=== PATIENT | male | born 1955 | race Caucasian/White ===

== ENCOUNTER 2020-03-12 11:56 | Inpatient (IN) | payer MEDICARE, OTHER ==
[~2020-03-12] VITALS: Ht 177.8 cm; Wt 90.7 kg
[2020-03-12] VITALS (25 sets, daily range): BP systolic 126–215; BP diastolic 26–115
--- NOTE | 2020-03-12 12:00 | NUR ---
[id number] from [facility] c/o "not feeling well" noted afib correctional captain. bg 174 pt admits to drinking vodka. to ER bed 9, hooked to road packer operator, bp cuff and pox, patient noted on a-fib, o2 sat noted at 90%, placed on 2LPM of oxygen. o2 sat went up to 96%. changed to hosp gown, warm blanket provided, patient aao X 2,NAD noted, awaiting MD girard
--- NOTE | 2020-03-12 12:06 | NUR ---
Dr Haq at bedside
[2020-03-12] MEDS ORDERED: LORAZEPAM INJ 2 MG/ML VIAL ONE (12:20)
[2020-03-12] MEDS ORDERED: ASPI-1420 PO (12:24)
--- NOTE | 2020-03-12 12:27 | NUR ---
WHEELED OUT VIA GURVINH BY [employer] FOR CT SCAN
[2020-03-12] MEDS ORDERED: LORAZEPAM INJ 2 MG/ML VIAL IV ONE (12:30)
[2020-03-12 13:02] LABS: BASOPHILS # (AUTO) 0.1 /CMM (0.0-0.2); BASOPHILS % (AUTO) 0.8 % (0.0-2.0); EOSINOPHILS % (AUTO) 0.1 % (0.0-6.0); HEMATOCRIT 43 % (39-51); HEMOGLOBIN 14.5 g/dL (13.5-17.5); LYMPHOCYTES # (AUTO) 2.1 /CMM (0.8-4.8); LYMPHOCYTES % (AUTO) 21.9 % (20.0-44.0); MEAN CORPUSCULAR HGB CONC 34 g/dl (31.0-36.0); MEAN CORPUSCULAR VOLUME 99 fL (80-96); MONOCYTES # (AUTO) 0.5 /CMM (0.1-1.30); NEUTROPHILS # (AUTO) 6.8 /CMM (1.8-8.9); NEUTROPHILS % (AUTO) 72.2 % (43.0-81.0); PLATELET COUNT (AUTO) 142 /CMM (150-450); RED BLOOD CELL COUNT(AUTO) 4.36 MIL/uL (4.5-6.0); WHITE BLOOD COUNT (AUTO) 9.4 K/uL (4.3-11.0)
[2020-03-12 13:08] LABS: ALBUMIN 3.1 g/dL (3.4-5.0); BILIRUBIN,DIRECT 0.2 mg/dL (0.0-0.2); BILIRUBIN,TOTAL 0.6 mg/dL (0.2-1.0); CALCIUM, SERUM 8.7 mg/dL (8.5-10.1); CREATININE 0.8 mg/dL (0.6-1.3); POTASSIUM 2.9 mmol/L (3.5-5.1); TOTAL PROTEIN, SERUM 6.7 g/dL (6.4-8.2)
[2020-03-12 13:13] LABS: THYROID STIMULATING HORMONE 1.063 uIU/mL (0.358-3.74)
[2020-03-12] MEDS ORDERED: IV PREMIX D5 1/2NS + KCL 1,000 ML IV ONE (13:30)
--- NOTE | 2020-03-12 13:40 | NUR ---
PANEL RESIDENTIAL SUPPORT SPECIALIST PAGED
[2020-03-12] MEDS ORDERED: DAPA5TAB PO (15:30)
[2020-03-12] MEDS ORDERED: TAMS-12 PO (15:30)
[2020-03-12] MEDS ORDERED: PANT40TA49 PO (15:30)
[2020-03-12] MEDS ORDERED: RISP1TAB97 PO (15:30)
[2020-03-12] MEDS ORDERED: ESCI20TA PO (15:30)
[2020-03-12] MEDS ORDERED: DONE5TAB34 PO (15:30)
[2020-03-12] MEDS ORDERED: CARV12.52 PO (15:30)
[2020-03-12] MEDS ORDERED: METF-440 PO (15:30)
[2020-03-12] MEDS ORDERED: AMLO-213 PO (15:30)
[2020-03-12] MEDS ORDERED: FLUT1BLS INH (15:30)
[2020-03-12] MEDS ORDERED: FINA5TAB11 PO (15:30)
[2020-03-12] MEDS ORDERED: MEMA28CA5 PO (15:30)
[2020-03-12] MEDS ORDERED: DULA0.75 SQ (15:30)
--- NOTE | 2020-03-12 15:39 | NUR ---
RAPID COVID SWAB DONE AND SENT TO LAB
--- NOTE | 2020-03-12 15:51 | NUR ---
DR JORGENSEN AT BEDSIDE
[2020-03-12] MEDS ORDERED: ACETAMINOPHEN 325 MG TABLET PO PRN (16:30)
[2020-03-12] MEDS ORDERED: ONDANSETRON HCL/PF 4 MG/2 ML VIAL IVP PRN (16:30)
[2020-03-12] MEDS ORDERED: Z GUARD REMEDY 2 OZ OINT TP PRN (16:30)
[2020-03-12] MEDS ORDERED: MAGNESIUM HYDROXIDE 30 ML UDC PO PRN (16:30)
[2020-03-12] MEDS ORDERED: MAG HYDROX/AL HYDROX/SIMETH 30 ML UDC PO PRN (16:30)
[2020-03-12] MEDS: DILTIAZEM HCL IV 125 MG in IV NS 0.9% 100 ML IV PRN ×3 (16:46→23:14)
--- NOTE | 2020-03-12 16:56 | NUR ---
increased cardizem drip to 10mg/hr.
--- NOTE | 2020-03-12 17:08 | NUR ---
CARDIZEM DRIP CHANGED TO 15MG/HR
--- NOTE | 2020-03-12 17:10 | NUR ---
DR VERAS AT BEDSIDE, LITTLE TO MINIMAL CHANGE DURING CARDIZEM DRIP. RECEIVED VERBAL ORDER OF 10MG CARDIZEM IVP. CARRIED OUT.
[2020-03-12] MEDS ORDERED: DILTIAZEM HCL 50 MG IV ONE (17:12)
--- NOTE | 2020-03-12 17:16 | NUR ---
ICU 257
--- NOTE | 2020-03-12 17:20 | NUR ---
REPORT GIVEN TO MICHAEL CRUZ OF ICU
[2020-03-12] MEDS ORDERED: DILTIAZEM HCL 25 MG IV IV ONE (17:30)
--- NOTE | 2020-03-12 17:45 | NUR ---
RN NOTES RECEIVED PT FROM ER VIA OSBALDO. PT A/OX2-3, ITALIAN SPEAKING. PLACED COMFORTABLY IN BED. CONNECTED TO MONITOR. IV LINES IN PLACE. CARDIZEM AT 15MG/HR AND D5 1/2 NS + KCL 20MEQ AR 200ML/HR INFUSING FROM ER. SKIN INTACT. WILL CLOSELY MONITOR
--- NOTE | 2020-03-12 17:52 | NUR ---
LAB CALLED PT COVID-19 RESULT NEGATIVE (-)
[2020-03-12] MEDS ORDERED: LORAZEPAM INJ 2 MG/ML VIAL IV PRN (18:00)
--- NOTE | 2020-03-12 19:30 | NUR ---
RN NOTE RECEIVED PATIENT IN BED, AO X 2-3, MONTSERRATIAN SPEAKING, BUT UNDERSTANDS SOME MACEDONIAN. PATIENT'S BREATHING IS EVEN AND UNLABORED. PATIENT IS ON 3 L OF OXYGEN VIA NC, TOLERATING WELL, SATURATION AT 95%. PATIENT HAS AFIB WITH RVR ON THE MONITOR, HR IS 136. NOTED IV SITE RAC 18G, AND LAC 18G, PATENT AND FLUSHING, NO S/S OF INFECTION OR INFILTRATION, WITH CARDIZEM INFUSING AT 15 MG/HR, AND PREMIX D5 1/2 NS - 20 MEQ KCL AT 200 ML/HR. SAFETY MEASURES IMPLEMENTED. PATIENT BED ALARM IS ON. HEAD OF BED ELEVATED. BED IS LOCKED, IN LOWEST POSITION AND SIDE RAILS UP. CALL LIGHT WITHIN REACH OF THE PATIENT. WILL CONTINUE TO MONITOR AND REASSESS FOR ANY CHANGES.
[2020-03-12] MEDS: IV NS 0.9% 1,000 ML IV PRN (20:40)
[2020-03-12 22:40] LABS: CALCIUM, SERUM 8.7 mg/dL (8.5-10.1); CREATININE 0.7 mg/dL (0.6-1.3)
[2020-03-13] VITALS (86 sets, daily range): BP systolic 100–174; BP diastolic 53–121
[2020-03-13] MEDS: ZOLPIDEM TARTRATE 5 MG TABLET PO PRN ×2 (00:38→23:04)
[2020-03-13] MEDS ORDERED: LORAZEPAM INJ 2 MG/ML VIAL IV PRN ×2 (01:00→16:30)
[2020-03-13 05:06] LABS: BASOPHILS % (AUTO) 0.3 % (0.0-2.0); HEMATOCRIT 39 % (39-51); HEMOGLOBIN 13.4 g/dL (13.5-17.5); LYMPHOCYTES # (AUTO) 0.8 /CMM (0.8-4.8); LYMPHOCYTES % (AUTO) 9.9 % (20.0-44.0); MEAN CORPUSCULAR HGB CONC 34 g/dl (31.0-36.0); MEAN CORPUSCULAR VOLUME 99 fL (80-96); MONOCYTES # (AUTO) 0.3 /CMM (0.1-1.30); MONOCYTES % (AUTO) 4.2 % (2.0-12.0); NEUTROPHILS % (AUTO) 85.6 % (43.0-81.0); PLATELET COUNT (AUTO) 108 /CMM (150-450); RED BLOOD CELL COUNT(AUTO) 3.99 MIL/uL (4.5-6.0); WHITE BLOOD COUNT (AUTO) 8.2 K/uL (4.3-11.0)
[2020-03-13 05:18] LABS: ALBUMIN 3.1 g/dL (3.4-5.0); BILIRUBIN,DIRECT 0.5 mg/dL (0.0-0.2); BILIRUBIN,TOTAL 1.8 mg/dL (0.2-1.0); CALCIUM, SERUM 8.7 mg/dL (8.5-10.1); CREATININE 0.7 mg/dL (0.6-1.3); MAGNESIUM 1.4 mg/dL (1.8-2.4); TOTAL PROTEIN, SERUM 6.6 g/dL (6.4-8.2)
[2020-03-13 05:27] LABS: THYROID STIMULATING HORMONE 0.884 uIU/mL (0.358-3.74)
[2020-03-13 05:38] LABS: POTASSIUM 2.7 mmol/L (3.5-5.1)
[2020-03-13] MEDS: DILTIAZEM HCL IV 125 MG in IV NS 0.9% 100 ML IV PRN (06:42)
[2020-03-13] MEDS: POTASSIUM CL. PREMIX PERIPHER. 50 ML IV SCH ×2 (06:47→08:01)
[2020-03-13] MEDS: POTASSIUM CHLORIDE 20 MEQ TAB.PRT.SR PO SCH ×5 (08:42→13:51)
[2020-03-13] MEDS: PANTOPRAZOLE 40 MG TABLET.DR PO SCH (08:42)
[2020-03-13] MEDS: NICOTINE PATCH (21MG) 21 MG PATCH.TD24 TD SCH (08:42)
[2020-03-13] MEDS: Magnesium 1GM/D5W 100ML PREMIX 100 ML IV SCH ×2 (08:43→09:48)
--- NOTE | 2020-03-13 09:16 | NUR ---
RN NOTE RECEIVED PATIENT IN BED, AO X 2-3, THAI SPEAKING, BUT UNDERSTANDS SOME KYRGYZ. PATIENT'S BREATHING IS EVEN AND UNLABORED. PATIENT IS ON 5 L OF OXYGEN VIA NC, TOLERATING WELL, SATURATION AT 97%. PATIENT HAS AFIB WITH RVR ON THE MONITOR, HR IS 133. NOTED IV SITE LAC 18G, PATENT AND FLUSHING, NO S/S OF INFECTION OR INFILTRATION, WITH CARDIZEM INFUSING AT 15 MG/HR, AND NS RUNNING AT 75ml/hr. SAFETY MEASURES IMPLEMENTED. PATIENT BED ALARM IS ON. HEAD OF BED ELEVATED. BED IS LOCKED, IN LOWEST POSITION AND SIDE RAILS UP. CALL LIGHT WITHIN REACH OF THE PATIENT. WILL CONTINUE TO MONITOR AND REASSESS FOR ANY CHANGES. Addendum: 03/13/20 at 0930 by LOPEZ SERNA RN RN OPENING NOTE TIME 0730
[2020-03-13] MEDS: IV NS 0.9% 1,000 ML IV PRN ×2 (09:40→22:13)
[2020-03-13] MEDS: METOPROLOL TARTRATE 50 MG TABLET PO SCH ×3 (11:45→23:03)
[2020-03-13] MEDS: DILTIAZEM HCL CD 240 MG PO SCH (11:45)
[2020-03-13] MEDS: LORAZEPAM INJ 2 MG/ML VIAL IV PRN ×3 (13:03→23:48)
--- NOTE | 2020-03-13 16:27 | NUR ---
INFORMED DOCTOR THAT PATIENT IS VERY RESTLESS AND AGITATED. MD ORDER RECEIVED. WILL IMPLEMENT AND CONT TO MONITOR PATIENT
[2020-03-13] MEDS ORDERED: LORAZEPAM INJ 2 MG/ML VIAL IV ONE (16:30)
[2020-03-13] MEDS: CHLORDIAZEPOXIDE HCL 25 MG CAPSULE PO SCH (17:09)
--- NOTE | 2020-03-13 18:43 | NUR ---
ICU CLOSING NOTE PATIENT CURRENTLY IN BED, RESTLESS AND AGITATED. CURRENTLY ON 5L O2 THERAPY VIA NASAL CANNULA, NO S/S OF RESPIRATORY DISTRESS AT THIS TIME. PATIENT MONITOR READING A FIB IN 90-140S. CONDOM CATHETER IN PLACE, DRAINING PROPERLY. LAC 18 G IV INTACT AND PATENT. NS RUNNING AT 75 MG/HR. CARDIZEM DRIP WAS DISCONTINUED. ALL ORDERS BY CARRIED OUT. ALL SAFETY MEASURES CURRENTLY IN PLACE, WILL CONT. TO MONITOR
--- NOTE | 2020-03-13 19:15 | NUR ---
RN NOTE RECEIVED PT AWAKE AND ALERT/ORIENTED X 2 WITH AGITATION IN SEMI SUÁREZ'S POSITION. PT IS ON 5L OF O2 VIA NC AND TOLERATING WELL. RESPIRATIONS EVEN AND UNLABORED. VITAL SIGNS STABLE VIA BEDSIDE MONITOR. AFIB ON CARIDAC MONITOR. CONDOM CATHETER IN PLACE DRAINING URINE VIA GRAVITY. WITH LEFT AC IV AND LEFT HAND IV PATENT AND INTACT WITHOUT SIGNS OF INFECTION OR INFILRATION. WITH ONGOING IV FLUDIS RUNNING ORDERED. BILATERAL SOFT WRIST RESTRAINTS IN PLACE ORDERED FOR SAFETY. WILL DO VISUAL CHECKS Q15M. SAFETY MEASURES IN PLACE PER PROTOCOL, BED ALARM ON, BED LOCKED AND IN LOW POSITION, SIDE RAILS UP X 3, WILL MONITOR PATIENT CLOSELY AND CARRY OUT ANY ACTIVE MD ORDERS.
--- NOTE | 2020-03-13 22:00 | NUR ---
RN NOTE COMPLETE BED BATH/ LINEN CHANGE AND PM CARE COMPLETED. PT TOLERATED WELL. VITAL SIGNS STABLE VIA BEDSIDE MONITOR. REAPPLIED RESTRAINTS FOR SAFETY, BED ALARM ON, WILL CONTNUE TO MONITOR.
[2020-03-14] VITALS (31 sets, daily range): BP systolic 104–162; BP diastolic 50–101
[2020-03-14] MEDS: LORAZEPAM INJ 2 MG/ML VIAL IV PRN ×3 (03:53→21:28)
[2020-03-14 05:04] LABS: BASOPHILS % (AUTO) 0.4 % (0.0-2.0); EOSINOPHILS % (AUTO) 0.7 % (0.0-6.0); HEMATOCRIT 40 % (39-51); HEMOGLOBIN 13.6 g/dL (13.5-17.5); LYMPHOCYTES # (AUTO) 1.6 /CMM (0.8-4.8); LYMPHOCYTES % (AUTO) 21.6 % (20.0-44.0); MEAN CORPUSCULAR HGB CONC 34 g/dl (31.0-36.0); MEAN CORPUSCULAR VOLUME 100 fL (80-96); MONOCYTES # (AUTO) 0.3 /CMM (0.1-1.30); MONOCYTES % (AUTO) 4.6 % (2.0-12.0); NEUTROPHILS # (AUTO) 5.4 /CMM (1.8-8.9); NEUTROPHILS % (AUTO) 72.7 % (43.0-81.0); PLATELET COUNT (AUTO) 95 /CMM (150-450); WHITE BLOOD COUNT (AUTO) 7.5 K/uL (4.3-11.0)
[2020-03-14 05:35] LABS: ALANINE AMINOTRANSFERASE 47 U/L (12-78); ALBUMIN 2.8 g/dL (3.4-5.0); ALKALINE PHOSPHATASE 78 U/L (46-116); ASPARTATE AMINOTRANSFERASE 42 U/L (15-37); BILIRUBIN,TOTAL 1.5 mg/dL (0.2-1.0); CALCIUM, SERUM 9.1 mg/dL (8.5-10.1); CARBON DIOXIDE 24 mmol/L (21-32); CHLORIDE 102 mmol/L (98-107); CREATININE 0.7 mg/dL (0.6-1.3); GLUCOSE 88 mg/dL (74-106); MAGNESIUM 1.7 mg/dL (1.8-2.4); PHOSPHORUS 2.6 mg/dL (2.5-4.9); SODIUM SERUM 139 mmol/L (136-145); TOTAL PROTEIN, SERUM 6.6 g/dL (6.4-8.2); UREA NITROGEN, BLOOD 12 mg/dL (7-18)
[2020-03-14] MEDS: METOPROLOL TARTRATE 50 MG TABLET PO SCH ×4 (05:47→23:12)
--- NOTE | 2020-03-14 06:59 | NUR ---
RN NOTE PT CURRENTLY IN SEMI SUÁREZ'S POSITION SLEEPING. PT IS 10L FACEMASK AND TOLERATING WELL. RESPIRATIONS EVEN AND UNLABORED. VITAL SIGNS STABLE VIA BEDSIDE MONITOR. AFIB ON CARIDAC MONITOR. CONDOM CATHETER IN PLACE DRAINING URINE VIA GRAVITY. WITH LEFT AC IV AND LEFT HAND IV PATENT AND INTACT WITHOUT SIGNS OF INFECTION OR INFILRATION. WITH ONGOING IV FLUIDS RUNNING ORDERED. BILATERAL SOFT WRIST RESTRAINTS IN PLACE ORDERED FOR SAFETY. VISUAL CHECKS DONE Q15M. SAFETY MEASURES IN PLACE PER PROTOCOL, BED ALARM ON, BED LOCKED AND IN LOW POSITION, SIDE RAILS UP X 3, ALL NEEDS MET AND ATTENDED TO, WILL ENDORSE TO MORNING RN FOR VIVIAN.
--- NOTE | 2020-03-14 07:05 | NUR ---
TRADE PROMOTION ANALYST NOTES RECEIVED PATIENT AOX1-2 RESTLESS AND AGITATED , FOLLOW COMMANDS , NOT IN ACUTE DISTRESS , RESPIRATIONS EVEN AND UNLABORED SPO2 OF 94% VIA SIMPLE MASK @8LPM , AFIB 105 ON BEDSIDE MONITOR , CONDOM CATHETER REMOVED BY PT , IV OF L AC # 18 AND L HAND # 20 WITH NS @ 75ML/HR INFUSING WELL , BILATERAL SOFT WRIST RESTRAINS IN PLACE , ALARMS MADE AUDIBLE , BED AT LOWEST POSITION , HOB @ 45 , WILL CONTINUE TO MONITOR ,
[2020-03-14] MEDS: POTASSIUM CHLORIDE 20 MEQ TAB.PRT.SR PO SCH ×4 (07:30→10:08)
[2020-03-14] MEDS: PANTOPRAZOLE 40 MG TABLET.DR PO SCH (07:30)
[2020-03-14] MEDS: Magnesium 1GM/D5W 100ML PREMIX 100 ML IV SCH ×2 (07:31→08:41)
[2020-03-14] MEDS: CHLORDIAZEPOXIDE HCL 25 MG CAPSULE PO SCH ×3 (08:13→16:34)
[2020-03-14] MEDS: DILTIAZEM HCL CD 240 MG PO SCH (08:14)
[2020-03-14] MEDS: NICOTINE PATCH (21MG) 21 MG PATCH.TD24 TD SCH (08:14)
--- NOTE | 2020-03-14 08:20 | NUR ---
RN NOTES SEEN AND EVALUATED BY DR BOO , PT CURRENTLY @ 12MG OF MORPHINE MAX , PER MD DOSE TO 20 , INCREASE MAX DOSE TO 20MG , ORDER CARRIED OUT Addendum: 03/14/20 at 0905 by ZACHARY HARLEY RN WRONG PT
[2020-03-14] MEDS: IV NS 0.9% 1,000 ML IV PRN (13:37)
[2020-03-14] MEDS: HYDROCODONE/APAP 5/325MG TABLET PO PRN (16:30)
--- NOTE | 2020-03-14 19:08 | NUR ---
MARINE AIR GROUND TASK FORCE PLANNERS NOTES PATIENT RESTING OB BED , FOLLOWS COMMANDS , NOT IN ACUTE DISTRESS , RESPIRATIONS EVEN AND UNLABORED SPO2 OF 95% VIA SIMPLE MASK @8LPM , AFIB 98 ON BEDSIDE MONITOR , , IV OF L AC # 12 AND L HAND # 20 WITH NS @ 75ML/HR INFUSING WELL , BILATERAL SOFT WRIST RESTRAINS IN PLACE , ALARMS MADE AUDIBLE , BED AT LOWEST POSITION , HOB @ 45 , REPORT GIEVN TO BRITTANY FOR CONTINUITY OF CARE
--- NOTE | 2020-03-14 19:21 | NUR ---
RN NOTE RECEIVED PT CURRENTLY IN SEMI SUÁREZ'S POSITION SLEEPING WITHOT SIGNS OF DISTRESS PAIN OR DISCOMFORT. PT IS 8L FACEMASK AND TOLERATING WELL. RESPIRATIONS EVEN AND UNLABORED. VITAL SIGNS STABLE VIA BEDSIDE MONITOR. AFIB ON CARIDAC MONITOR. WITH LEFT AC IV AND LEFT HAND IV PATENT AND INTACT WITHOUT SIGNS OF INFECTION OR INFILRATION. WITH ONGOING IV FLUIDS RUNNING ORDERED. BILATERAL SOFT WRIST RESTRAINTS IN PLACE ORDERED FOR SAFETY. WILL VISUAL CHECKS Q15M. SAFETY MEASURES IN PLACE PER PROTOCOL, BED ALARM ON, BED LOCKED AND IN LOW POSITION, SIDE RAILS UP X 3, WILL MONITOR PATIENT AND CARRY OUT ANY ACTIVE MD ORDERS.
--- NOTE | 2020-03-14 22:00 | NUR ---
RN NOTE COMPLETE BED BATH AND LINEN CHANGE COMPLETED, PT TOLERATED WELL, WILL CONTINUE TO MONITOR
[2020-03-15] VITALS (21 sets, daily range): BP systolic 102–148; BP diastolic 62–92
--- NOTE | 2020-03-15 01:00 | NUR ---
RN NOTE PT CURRENTLY SLEEPING IN BED WITHOUT SIGNS OF ACUTE DISTRESS OR DISCOMFORT. WILL CONTINUE TO MONITOR.
[2020-03-15] MEDS: IV NS 0.9% 1,000 ML IV PRN ×2 (01:19→13:55)
[2020-03-15] MEDS: LORAZEPAM INJ 2 MG/ML VIAL IV PRN ×3 (02:34→14:15)
[2020-03-15] MEDS: METOPROLOL TARTRATE 50 MG TABLET PO SCH ×4 (05:38→23:59)
[2020-03-15 06:06] LABS: BASOPHILS % (AUTO) 0.4 % (0.0-2.0); HEMATOCRIT 38 % (39-51); HEMOGLOBIN 12.7 g/dL (13.5-17.5); LYMPHOCYTES # (AUTO) 1.3 /CMM (0.8-4.8); LYMPHOCYTES % (AUTO) 26.2 % (20.0-44.0); MEAN CORPUSCULAR HGB CONC 33 g/dl (31.0-36.0); MEAN CORPUSCULAR VOLUME 102 fL (80-96); MONOCYTES # (AUTO) 0.3 /CMM (0.1-1.30); MONOCYTES % (AUTO) 6.8 % (2.0-12.0); NEUTROPHILS # (AUTO) 3.2 /CMM (1.8-8.9); NEUTROPHILS % (AUTO) 63.6 % (43.0-81.0); PLATELET COUNT (AUTO) 87 /CMM (150-450); RED BLOOD CELL COUNT(AUTO) 3.76 MIL/uL (4.5-6.0)
--- NOTE | 2020-03-15 06:39 | NUR ---
RN NOTE NO ACUTE CHANGES OBSERVED OVERNIGHT. PATIENT RESTING IN BED WITHOTU SIGNS OF PAIN OR DISCOMFORT, ABLE TO MAKE NEEDS KNOWN AND FOLLOW COMMANDS, NO SIGNS OF ACUTE DISTRESS , ON SIMPLE MASK @8LPM , AFIB ON THE BEDSIDE MONITOR. WITH IVS ON LAC # 20 AND L HAND # 20 WITH NS @ 75ML/HR ORDERED. NO SIGNS OF COMPLICATIONS AT SITES, BILATERAL SOFT WRIST RESTRAINS IN PLACE ORDERED FOR SAFETY, ALL NEEDS MET AND ATTENDED TO, SAFETY MEASURES IN PLACE PER PROTOCOL, BED ALARM ON, BED LOCKED AND IN LOW POSITION, SIDE RAILS UP, WILL ENDORSE TO MORNING RN FOR VIVIAN.
[2020-03-15 06:54] LABS: ALBUMIN 2.5 g/dL (3.4-5.0); BILIRUBIN,TOTAL 0.8 mg/dL (0.2-1.0); CALCIUM, SERUM 9.1 mg/dL (8.5-10.1); CREATININE 0.7 mg/dL (0.6-1.3); MAGNESIUM 1.8 mg/dL (1.8-2.4); POTASSIUM 3.4 mmol/L (3.5-5.1)
[2020-03-15] MEDS: PANTOPRAZOLE 40 MG TABLET.DR PO SCH (07:13)
--- NOTE | 2020-03-15 07:14 | NUR ---
GAS ENGINEER NOTES RECEIVED PATIENT AOX1-2 , FOLLOW COMMANDS , NOT IN ACUTE DISTRESS , RESPIRATIONS EVEN AND UNLABORED SPO2 OF 98% VIA SIMPLE MASK @8LPM , AFIB 82 ON BEDSIDE MONITOR , IV OF L AC # 20 AND L HAND # 20 WITH NS @ 75ML/HR INFUSING WELL , BILATERAL SOFT WRIST RESTRAINS IN PLACE , ALARMS MADE AUDIBLE , BED AT LOWEST POSITION , HOB @ 45 , WILL CONTINUE TO MONITOR ,
[2020-03-15] MEDS: NICOTINE PATCH (21MG) 21 MG PATCH.TD24 TD SCH (08:12)
[2020-03-15] MEDS: CHLORDIAZEPOXIDE HCL 25 MG CAPSULE PO SCH ×3 (08:12→17:25)
[2020-03-15] MEDS: DILTIAZEM HCL CD 240 MG PO SCH (08:16)
[2020-03-15] MEDS: POTASSIUM CHLORIDE 20 MEQ TAB.PRT.SR PO SCH ×3 (09:18→11:00)
--- NOTE | 2020-03-15 12:24 | NUR ---
MANAGER COMPETITIVE INTELLIGENCE NOTES KDUR UNABLE TO PULL OUT OF OMNICELL , NON ADMIN , ORDERED K DUR 20 MEQ
[2020-03-15] MEDS ORDERED: POTASSIUM CHLORIDE 20 MEQ TAB.PRT.SR PO ONE (12:30)
--- NOTE | 2020-03-15 12:33 | NUR ---
POINT OF CARE TECHNICIAN NOTES SEEN AND EVALUATED BY DR PEARL , DISCUSSED PT O2 TITRATED FROM 8LPM MASK TO NC 4LPM SPO2 OF 98% , TACHYPNEIC @ 30-345CPM WITH NO SIGNS OF DISTRESS , AFEBRILE , AFIB 80-110 , BP WNL , AFEBRILE , MD AWARE .
[2020-03-15] MEDS: HYDROCODONE/APAP 5/325MG TABLET PO PRN (13:25)
--- NOTE | 2020-03-15 13:43 | NUR ---
HYDRAULIC SPINNER NOTES BP OF 177/75 , RECHECKED BP , CURRENT BP OF 158/81 , HR OF AFIB 105-110 , SPO2 OF 94% VIA 4LPM NC , RR 30CPM WITH NO SIGNS OF DISTRESS , WILL CONTINUE TO MONITOR ,
--- NOTE | 2020-03-15 14:56 | NUR ---
CAN PUSHER NOTES PT AOX2-3 , REORIENT TO DATE TIME AND PLACE , ABLE TO FOLLOW COMMANDS , UNDERSTAND TREATMENT PLAN , AFEBRILE , RR 30-35 CPM , 4LPM SPO2 OF 97% , HR AFIB 95 - 110 RECEIVED A CALL FROM DR SIDHU I NOTIFIED HIM THAT PT BP WAS 177/75 HR OF 120 AFIB TACHYPNEIC @ 35 CPM WITH NO DISTRESS AT 4LPM NC , PER MD START PT ON NITROPASTE 1GM BID ,
[2020-03-15] MEDS ORDERED: NITROGLYCERIN PACKET 1 GM PACKET TOP SCH ×2 (15:03→15:05)
[2020-03-15] MEDS ORDERED: IV NS 0.9% 1,000 ML IV PRN (15:10)
--- NOTE | 2020-03-15 15:15 | NUR ---
CONDEMNATION ENGINEER NOTES NOTIFIED DR JORGENSEN THAT PT IS HAVING SIGNS OF WITHDRWAL , HR 100-110 AFIB , AGITATED , TACYPNEIC 30CPM , ATIVAN GIVEN @ 1415 , PT STILL AGITATED , PER MD INCREASE IVF TO 125ML/HR , GIVEN ATIVAN 2MG X1 , ORDER CARRIED OUT ,
[2020-03-15] MEDS ORDERED: LORAZEPAM INJ 2 MG/ML VIAL IV ONE (15:30)
--- NOTE | 2020-03-15 15:49 | NUR ---
SORTING MACHINE OPERATOR NOTES TRANSFERRED PT TO MS 3 , STABLE AT THIS TIME , NOT IN ACUTE DISTRESS , RESPIRATIONS EVEN AND UNLABORED SPO2 OF 98% VIA NC @ 4LPM , AFIB 72 ON BEDSIDE MONITOR , IV OF L AC # 20 AND L HAND # 20 WITH NS @ 125ML/HR INFUSING WELL , BELONGINGS AT BEDSIDE , ALARMS MADE AUDIBLE , BED ON LOW AND LOCKED POSITION , CALL LIGHT WITHIN REACH , HOB @ 45 , REPORT GIVEN TO JUSTIN FOR CONTINUITY OF CARE
--- NOTE | 2020-03-15 15:50 | NUR ---
CONTROL PANEL OPERATOR CRUDE UNIT NOTE PT A/O X1 AND POLISH SPEAKING. PT IS CURRENTLY ON 4L NC. PT IS TACHYPNEIC WITH O2 SAT OF 95%. PT V/S STABLE. PT IS ABLE TO USE BEDSIDE COMMODE. PT IS ABLE OT USE URINAL. SKIN IS INTACT. 2 PERSON ASSIST WITH AMBULATION. HL PRESENT ON THE L AC AND HAND. SAFETY MEASURES IN PLACE. SIDES RAILS RAISED. BED LOWERED. CALL LIGHT WITHIN REACH. WILL CONTINUE TO MONITOR.
[2020-03-15] MEDS: NITROGLYCERIN PACKET 1 GM PACKET TOP SCH (17:25)
--- NOTE | 2020-03-15 19:30 | NUR ---
RN CLOSING NOTE JACKER FEEDER NOTE PT A/O X1 AND EAST TIMOR[place] SPEAKING. PT IS CURRENTLY ON 4L NC. PT IS TACHYPNEIC WITH O2 SAT OF 95%. PT V/S STABLE. PT IS ABLE TO USE BEDSIDE COMMODE. PT IS ABLE OT USE URINAL. SKIN IS INTACT. 2 PERSON ASSIST WITH AMBULATION. HL PRESENT ON THE L AC AND HAND. SAFETY MEASURES IN PLACE. SIDES RAILS RAISED. BED LOWERED. CALL LIGHT WITHIN REACH. ROUTINE MEDS GIVEN. REPORT GIVEN TO NIGHT NURSE.
--- NOTE | 2020-03-15 20:00 | NUR ---
NURSES OPENING NOTES: SEEN PATIENT IN THE ROOM, AWAKE, ATTEMPTING TO DISROBE HIMSELF. PATIENT IS ALERT AND ORIENTED X1, COMMUNICATION IS SOMEHOW A CHALLENGE SINCE PATIENT SPEAKS KITTITIAN ONLY. NO COMPLAINS OF PAIN, NO FACIAL GRIMACE NOTED. SAFETY AND FALL PRECAUTIONS OBSERVED. BED ALARM KEPT ON. IVF ON LEFT AC G @20 AND IVF ON LEFT HAND NS G#20 WITH FLUIDS NS @125ML/HR. WILL ADMINISTER ORDERED MEDICATIONS. WILL CONTINUE TO MONITOR.
[2020-03-16] VITALS: BP 138/96
[2020-03-16] MEDS: LORAZEPAM INJ 2 MG/ML VIAL IV PRN ×3 (02:58→20:55)
--- NOTE | 2020-03-16 03:01 | NUR ---
NURSES NOTES: PATIENT IN THE ROOM, AWAKE, TRYING TO GET OUT OF BED, TRYING TO PULL IV LINES. NOTED TO BE ALL CONFUSED. VITAL SIGNS CHECKED BP 128/78, HR101, RR-20, TEMP 97.6, O2 SAT 94% AT 4LPM VIA NASAL CANNULA. ATIVAN 2MG GIVEN IV. WILL CONTINUE TO MONITOR PATIENT.
[2020-03-16 05:23] VITALS: BP 144/92
[2020-03-16] MEDS: METOPROLOL TARTRATE 50 MG TABLET PO SCH ×3 (05:24→17:09)
[2020-03-16 06:22] LABS: BASOPHILS % (AUTO) 0.4 % (0.0-2.0); EOSINOPHILS % (AUTO) 2.1 % (0.0-6.0); HEMATOCRIT 36 % (39-51); HEMOGLOBIN 12.3 g/dL (13.5-17.5); LYMPHOCYTES # (AUTO) 1.3 /CMM (0.8-4.8); LYMPHOCYTES % (AUTO) 25.1 % (20.0-44.0); MEAN CORPUSCULAR HGB CONC 34 g/dl (31.0-36.0); MEAN CORPUSCULAR VOLUME 101 fL (80-96); MONOCYTES # (AUTO) 0.6 /CMM (0.1-1.30); MONOCYTES % (AUTO) 11.3 % (2.0-12.0); NEUTROPHILS # (AUTO) 3.3 /CMM (1.8-8.9); NEUTROPHILS % (AUTO) 61.1 % (43.0-81.0); PLATELET COUNT (AUTO) 111 /CMM (150-450); RED BLOOD CELL COUNT(AUTO) 3.56 MIL/uL (4.5-6.0); WHITE BLOOD COUNT (AUTO) 5.3 K/uL (4.3-11.0)
[2020-03-16] MEDS: PANTOPRAZOLE 40 MG TABLET.DR PO SCH (06:34)
--- NOTE | 2020-03-16 06:38 | NUR ---
CLOSING NOTES: PATIENT IN THE ROOM, AWAKE, WITH IVF ON LEFT WRIST G #24 NS 125ML/HR, 2ND IV SITE ON RIGHT UPPER ARM G#22. NO COMPLAINS OF PAIN, NO FACIAL GRIMACE NOTED. PATIENT NOTED TO BE CONFUSED AND TRYING TO GET OUT OF BED. SOFT WRIST RESTRAINTS IN PLACED. CIRCULATION CHECKED. ADMINISTERED ORDERED MEDICATIONS. SAFETY AND FALL PRECAUTIONS OBSERVED. BED ALARM KEPT ON. WILL CONTINUE TO MONITOR PATIENT FOR MOOD, SAFETY AND BEHAVIOR.
[2020-03-16 06:58] LABS: CREATININE 0.5 mg/dL (0.6-1.3); MAGNESIUM 1.6 mg/dL (1.8-2.4); PHOSPHORUS 3.6 mg/dL (2.5-4.9); POTASSIUM 3.4 mmol/L (3.5-5.1)
--- NOTE | 2020-03-16 07:39 | NUR ---
MS RN OPENING NOTES: RECEIVED PT AWAKE IN BED IN NO ACUTE SIGNS OF DISTRESS. HOB ELEVATED. A/O X1. FILIPINO SPEAKING, NO C/O PAIN AT THIS TIME. PT IS CONFUSED, RE-ORIENTED AND REDIRECTED. B/L SOFT WRIST RESTRAINTS IN PLACE, GOOD PERIPHERAL PULSES NOTED. ON 02 VIA N/C AT 4LPM, TOLERATING WELL WITH NO SOB NOTED. PIV'S ON LEFT WRIST G#24 AND ANANT G#22, IVF OF NS @125ML/HR INFUSING WELL. SAFETY MEASURES IN PLACE: BED IN LOWEST LOCKED POSITION WITH SR UP APPROPRIATE. BED ALARM ON. CALL LIGHT W/IN REACH. WILL CONTINUE TO MONITOR.
[2020-03-16 08:23] VITALS: BP 138/70
[2020-03-16] MEDS: POTASSIUM CHLORIDE 20 MEQ TAB.PRT.SR PO SCH ×3 (09:24→11:39)
[2020-03-16] MEDS: Magnesium 1GM/D5W 100ML PREMIX 100 ML IV SCH ×2 (09:24→10:28)
[2020-03-16] MEDS: NICOTINE PATCH (21MG) 21 MG PATCH.TD24 TD SCH (09:25)
[2020-03-16] MEDS: DILTIAZEM HCL CD 240 MG PO SCH (09:25)
[2020-03-16] MEDS: NITROGLYCERIN PACKET 1 GM PACKET TOP SCH ×2 (09:25→17:08)
[2020-03-16] MEDS: CHLORDIAZEPOXIDE HCL 25 MG CAPSULE PO SCH ×3 (09:28→17:08)
[2020-03-16 11:03] LABS: CHLORIDE,URINE RANDOM 220 mmol/L (55-125); POTASSIUM RNDM,URINE 33 mmol/L (25-125); URINE SODIUM, RANDOM 183 mmol/l (40-220)
[2020-03-16 11:33] LABS: OSMOLALITY,URINE 628 mOS/kg (340-1090)
--- NOTE | 2020-03-16 12:50 | NUR ---
RN NOTES PT NOTED RESTLESS AND ANXIOUS, PRN ATIVAN 2MG/ML IVF ADMINISTERED AT 1247. WILL CONTINUE TO MONITOR AND REASSESS PT.
[2020-03-16 16:00] VITALS: BP 145/81
--- NOTE | 2020-03-16 16:46 | NUR ---
RN NOTES PT FOUND BY RN ON THE FLOOR AT BEDSIDE CRAWLING AT 1635. ASSESSMENT DONE, NO PHYSICAL INJURY NOTED AND ROM OF FOUR EXTREMITIES INTACT. ASSISTED PT BACK TO BED AND ASKED WHAT HAPPEN AND HE STATED 'I DON'T KNOW", HE DENIES PAIN OR ANY DISCOMFORTS AT THIS TIME. DR JORGENSEN MADE AWARE WITH ORDER TO CLOSELY MONITOR PT AND TO CONTINUE SOFT WRIST RESTRAINTS.
--- NOTE | 2020-03-16 18:55 | NUR ---
MS RN CLOSING NOTES: PT IN BED AWAKE AT THIS TIME. HOB ELEVATED. A/O X2. CROATIAN SPEAKING, CONFUSED ON AND OF DURING THE DAY. RE-ORIENTED AND REDIRECTED NEEDED. B/L SOFT WRIST RESTRAINTS IN PLACE, NO SKIN BREAK WITH GOOD PERIPHERAL PULSES NOTED. ON 02 VIA N/C AT 4LPM, TOLERATING WELL WITH NO SOB NOTED. PIV'S ON LEFT WRIST G#24 AND ANANT G#22 BOTH INTACT, PATENT AND FLUSHING WELL. ALL NEEDS AND CARE ATTENDED WELL. SAFETY MEASURES IN PLACE: BED IN LOWEST LOCKED POSITION WITH SR UP X2. BED ALARM ON. CALL LIGHT W/IN REACH. WILL ENDORSE TO BOOSTER STATION OPERATOR NURSE FOR VIVIAN.
[2020-03-16 20:00] VITALS: BP 142/86
--- NOTE | 2020-03-16 21:00 | NUR ---
iv site leaking iv removed from right shoulder #22 site is brused. catheter intact. bandage applied. iv site dislodged to left wrist. bandage applied catheter intact. new iv inserted to right ac #20.
[2020-03-17] MEDS: METOPROLOL TARTRATE 50 MG TABLET PO SCH ×4 (01:18→17:46)
[2020-03-17] MEDS: LORAZEPAM INJ 2 MG/ML VIAL IV PRN ×2 (03:25→10:29)
--- NOTE | 2020-03-17 03:30 | NUR ---
pt removed restraints and removed iv to right ac. no s/s of complications new iv inserted to left ac # 22. wrapped in arm sleeve restraints reapplied.
[2020-03-17] MEDS: PANTOPRAZOLE 40 MG TABLET.DR PO SCH (05:51)
--- NOTE | 2020-03-17 07:35 | NUR ---
RN OPEN NOTES PATIENT IS SLEEPING IN BED WITH NO SIGNS OF DISTRESS ON 3L OF NASAL CANNULA. ERICK SOFT WRIST RESTRAINTS ON, GOOD CAPILLARY REFILL AND NO EDEMA NEEDS WERE OFFERED, URINAL AND WATER. IV L AC #22G INTACT SL. SAFETY MEASURES ARE APPLIED, BED IS IN THE LOWEST POSTION, VAT SKIMMER RAILS UP X 2, CALL WITHIN REACH, WILL CONTINUE TO MONITOR.
[2020-03-17 07:55] LABS: CALCIUM, SERUM 9.3 mg/dL (8.5-10.1); CREATININE 0.6 mg/dL (0.6-1.3); MAGNESIUM 1.6 mg/dL (1.8-2.4); PHOSPHORUS 3.9 mg/dL (2.5-4.9); POTASSIUM 3.1 mmol/L (3.5-5.1)
[2020-03-17 07:57] LABS: BASOPHILS % (AUTO) 0.4 % (0.0-2.0); EOSINOPHILS % (AUTO) 2.3 % (0.0-6.0); HEMATOCRIT 37 % (39-51); HEMOGLOBIN 12.8 g/dL (13.5-17.5); LYMPHOCYTES # (AUTO) 1.4 /CMM (0.8-4.8); LYMPHOCYTES % (AUTO) 27.9 % (20.0-44.0); MEAN CORPUSCULAR HGB CONC 34 g/dl (31.0-36.0); MEAN CORPUSCULAR VOLUME 100 fL (80-96); MONOCYTES # (AUTO) 0.7 /CMM (0.1-1.30); MONOCYTES % (AUTO) 13.7 % (2.0-12.0); NEUTROPHILS # (AUTO) 2.8 /CMM (1.8-8.9); NEUTROPHILS % (AUTO) 55.7 % (43.0-81.0); PLATELET COUNT (AUTO) 128 /CMM (150-450); RED BLOOD CELL COUNT(AUTO) 3.75 MIL/uL (4.5-6.0); WHITE BLOOD COUNT (AUTO) 5.1 K/uL (4.3-11.0)
[2020-03-17 08:00] VITALS: BP 156/81
[2020-03-17] MEDS ORDERED: FOLIC ACID 1 MG TABLET PO SCH (09:00)
[2020-03-17] MEDS: DILTIAZEM HCL CD 240 MG PO SCH (09:45)
[2020-03-17] MEDS: FOLIC ACID 1 MG TABLET PO SCH (09:45)
[2020-03-17] MEDS: NITROGLYCERIN PACKET 1 GM PACKET TOP SCH ×2 (09:46→17:46)
[2020-03-17] MEDS: NICOTINE PATCH (21MG) 21 MG PATCH.TD24 TD SCH (09:46)
[2020-03-17] MEDS: Magnesium 1GM/D5W 100ML PREMIX 100 ML IV SCH ×2 (09:46→11:44)
[2020-03-17] MEDS: THIAMINE HCL 100 MG TABLET PO SCH (09:46)
[2020-03-17] MEDS: CHLORDIAZEPOXIDE HCL 25 MG CAPSULE PO SCH ×3 (09:50→18:17)
[2020-03-17] MEDS: POTASSIUM CHLORIDE 20 MEQ TAB.PRT.SR PO SCH ×2 (10:21→11:44)
[2020-03-17 16:00] VITALS: BP 117/69
[2020-03-17 20:00] VITALS: BP 126/84
--- NOTE | 2020-03-17 20:00 | NUR ---
RN Closing Notes Patient is A/O x 2 with 3L of nasal cannula on olena soft wrist restraints. Good capillary refill and no signs of edema. IV Left AC#22G SL. Patient remained stable through out shift. Patient kept clean and dry. All needs, care, treatments and medications administered as anticipated per order. Safety measure are applied. Bed is in lowest position side rails up x 2 for safety. Call light within reach, will continue to monitor.
--- NOTE | 2020-03-18 01:00 | NUR ---
PT FOLLOWING DIRECTION. RESTRESTRAINTS REMOVED. PT HIGH FALL RISK BED AARM ACTIVATED. Addendum: 03/18/20 at 0430 by LOUISA HUMPHREY RN WILL CONT TO MONITOR.
[2020-03-18] MEDS: METOPROLOL TARTRATE 50 MG TABLET PO SCH ×4 (01:29→17:40)
[2020-03-18] MEDS: PANTOPRAZOLE 40 MG TABLET.DR PO SCH (07:13)
--- NOTE | 2020-03-18 07:25 | NUR ---
MS RN NOTES RECEIVED PATIENT IN BED ALERT ORIENTED X 2. NO ACUTE DISTRESS NOTED. BREATHING UNLABORED. NO SOB NOTED. IV ACCESS PATENT AND INTACT, NO REDNESS, NO SWELLING NOTED. SAFETY MEASURES IN PLACE. CALL LIGHT WITHIN REACH. WILL CONTINUE TO MONITOR ACCORDINGLY.
[2020-03-18 07:50] LABS: BASOPHILS % (AUTO) 0.3 % (0.0-2.0); EOSINOPHILS % (AUTO) 2.1 % (0.0-6.0); HEMATOCRIT 37 % (39-51); HEMOGLOBIN 12.3 g/dL (13.5-17.5); LYMPHOCYTES # (AUTO) 1.9 /CMM (0.8-4.8); LYMPHOCYTES % (AUTO) 33.6 % (20.0-44.0); MEAN CORPUSCULAR HGB CONC 34 g/dl (31.0-36.0); MEAN CORPUSCULAR VOLUME 100 fL (80-96); MONOCYTES # (AUTO) 0.8 /CMM (0.1-1.30); MONOCYTES % (AUTO) 13.5 % (2.0-12.0); NEUTROPHILS # (AUTO) 2.8 /CMM (1.8-8.9); NEUTROPHILS % (AUTO) 50.5 % (43.0-81.0); PLATELET COUNT (AUTO) 160 /CMM (150-450); RED BLOOD CELL COUNT(AUTO) 3.65 MIL/uL (4.5-6.0); WHITE BLOOD COUNT (AUTO) 5.6 K/uL (4.3-11.0)
[2020-03-18 08:00] VITALS: BP 111/67
[2020-03-18 08:23] LABS: CALCIUM, SERUM 9.2 mg/dL (8.5-10.1); CREATININE 0.8 mg/dL (0.6-1.3); MAGNESIUM 1.8 mg/dL (1.8-2.4); PHOSPHORUS 4.5 mg/dL (2.5-4.9); POTASSIUM 3.2 mmol/L (3.5-5.1)
[2020-03-18 09:38] LABS: ABG BASE EXCESS -0.4 mmol/L; ABG OXYGEN SATURATION 92.5 % (92.0-98.5); ABG PCO2 31.4 mmHg (35.0-45.0); ABG PH 7.471 (7.350-7.450); ABG PO2 68.3 mmHg (75.0-100.0); AaDO2 43.8 mmHg; COHb 0.3 % (0.5-1.5); MetHb 0.3 % (0.0-1.5); O2Hb 91.9 % (94.0-97.0); SITE, ABG Right Radial; VENT MODE, BG room air
[2020-03-18] MEDS: FOLIC ACID 1 MG TABLET PO SCH (09:43)
[2020-03-18] MEDS: THIAMINE HCL 100 MG TABLET PO SCH (09:44)
[2020-03-18] MEDS: DILTIAZEM HCL CD 240 MG PO SCH (09:44)
[2020-03-18] MEDS: CHLORDIAZEPOXIDE HCL 25 MG CAPSULE PO SCH ×3 (09:45→17:39)
[2020-03-18] MEDS: NICOTINE PATCH (21MG) 21 MG PATCH.TD24 TD SCH (09:45)
[2020-03-18] MEDS: NITROGLYCERIN PACKET 1 GM PACKET TOP SCH ×2 (09:45→17:40)
[2020-03-18] MEDS ORDERED: POTASSIUM CHLORIDE 20 MEQ TAB.PRT.SR PO SCH (10:30)
[2020-03-18 16:00] VITALS: BP 110/63
--- NOTE | 2020-03-18 18:56 | NUR ---
MS RN NOTES PATIENT IN BED ALERT ORIENTED X 2. NO ACUTE DISTRESS NOTED. BREATHING UNLABORED. NO SOB NOTED. IV ACCESS PATENT AND INTACT, NO REDNESS, NO SWELLING NOTED. NEEDS ATTENDED AND ANTICIPATED. KEPT, CLEAN DRY AND COMFORTABLE. SAFETY MEASURES IN PLACE. CALL LIGHT WITHIN REACH. WILL ENDORSE TO NIGHT NURSE FOR CONTINUITY OF CARE.
--- NOTE | 2020-03-18 19:21 | NUR ---
MS RN OPENING NOTES PATIENT A/O X2; HAITIAN SPEAKING; ABLE TO MAKE SIMPLE NEEDS KNOWN. ON ROOM AIR AND TOLERATING WELL. MIDLINE ON ANANT PATENT AND INTACT. IV TO LAC #22G PATENT AND INTACT. BILATERAL SOFT WRIST RESTRAINTS ARE OFF AT THIS TIME; PATIENT IS COMPLIANT; NO SKIN BREAKDOWN NOTED. SAFETY MEASURES IN PLACE; BED IN LOWEST LOCKED POSITION; SIDE RAILS UP X2; CALL LIGHT WITHIN REACH, BED ALARMS ON. WILL CONTINUE PLAN OF CARE.
[2020-03-18 20:00] VITALS: BP 114/72
[2020-03-19] MEDS: METOPROLOL TARTRATE 50 MG TABLET PO SCH ×3 (01:10→13:10)
--- NOTE | 2020-03-19 01:37 | NUR ---
POWDER MONKEY NOTES RENEWED ACUTE BILATERAL SOFT RESTRAINT ORDERS FOR SAFETY PRECAUTIONS. BILATERAL SOFT RESTRAINT ON; NO SKIN BREAK DOWN; GOOD CIRCULATION NOTED. WILL CONTINUE TO ASSESS PATIENT. Addendum: 03/19/20 at 0155 by EFRAIN STEVENS RN MS
--- NOTE | 2020-03-19 07:30 | NUR ---
PT RECEIVED RESTING COMFORTABLY IN BED. NO S/S OR C/O PAIN OR DISTRESS NOTED. SIDE RAILS UP X2, CALL LIGHT LEFT WITHIN REACH. WILL CONTINUE PLAN OF CARE.
--- NOTE | 2020-03-19 07:52 | NUR ---
MS RN CLOSING NOTES PATIENT A/O X2; SAO TOMEAN SPEAKING; ABLE TO MAKE SIMPLE NEEDS KNOWN. ON O2 VIA 2L NASAL CANNULA AND TOLERATING WELL. MIDLINE ON ANANT PATENT AND INTACT. IV TO LAC #22G PATENT AND INTACT. R WRIST SOFT RESTRAIN ON; GOOD CIRCULATION; NO SKIN BREAKDOWN NOTED. SAFETY MEASURES IN PLACE; BED IN LOWEST LOCKED POSITION; SIDE RAILS UP X2; CALL LIGHT WITHIN REACH, BED ALARMS ON. ENDORSED VIVIAN TO ONCOMING MORNING RN.
[2020-03-19 08:00] VITALS: BP 140/70
[2020-03-19 08:01] LABS: BASOPHILS % (AUTO) 0.4 % (0.0-2.0); EOSINOPHILS % (AUTO) 1.6 % (0.0-6.0); HEMATOCRIT 37 % (39-51); HEMOGLOBIN 12.4 g/dL (13.5-17.5); LYMPHOCYTES # (AUTO) 2.1 /CMM (0.8-4.8); LYMPHOCYTES % (AUTO) 36.4 % (20.0-44.0); MEAN CORPUSCULAR HGB CONC 33 g/dl (31.0-36.0); MEAN CORPUSCULAR VOLUME 101 fL (80-96); MONOCYTES # (AUTO) 0.8 /CMM (0.1-1.30); MONOCYTES % (AUTO) 13.8 % (2.0-12.0); NEUTROPHILS # (AUTO) 2.8 /CMM (1.8-8.9); NEUTROPHILS % (AUTO) 47.8 % (43.0-81.0); PLATELET COUNT (AUTO) 189 /CMM (150-450); RED BLOOD CELL COUNT(AUTO) 3.72 MIL/uL (4.5-6.0); WHITE BLOOD COUNT (AUTO) 5.8 K/uL (4.3-11.0)
[2020-03-19] MEDS: PANTOPRAZOLE 40 MG TABLET.DR PO SCH (08:03)
[2020-03-19] MEDS: NICOTINE PATCH (21MG) 21 MG PATCH.TD24 TD SCH (08:16)
[2020-03-19] MEDS: THIAMINE HCL 100 MG TABLET PO SCH (08:16)
[2020-03-19] MEDS: FOLIC ACID 1 MG TABLET PO SCH (08:17)
[2020-03-19] MEDS: CHLORDIAZEPOXIDE HCL 25 MG CAPSULE PO SCH ×2 (08:17→13:09)
[2020-03-19] MEDS: DILTIAZEM HCL CD 240 MG PO SCH (08:17)
[2020-03-19] MEDS: NITROGLYCERIN PACKET 1 GM PACKET TOP SCH (08:17)
[2020-03-19 08:21] LABS: CALCIUM, SERUM 9.2 mg/dL (8.5-10.1); CREATININE 0.8 mg/dL (0.6-1.3); MAGNESIUM 1.9 mg/dL (1.8-2.4); POTASSIUM 3.8 mmol/L (3.5-5.1)
[2020-03-19 13:10] VITALS: BP 116/80
--- NOTE | 2020-03-19 16:01 | NUR ---
DISCHARGE INSTRUCTIONS GIVEN ORDERED. ENCOURAGED TO FOLLOW UP WITH PMD INSTRUCTED. ALL QUESTIONS AND CONCERNS ADDRESSED. PATIENT VERBALIZED UNDERSTANDING. MEDICATION RECONCILIATION FORM COMPLETED. COPY GIVEN TO PATIENT. IV REMOVED WITH CATHETER INTACT, PRESSURE DRESSING APPLIED. PATIENT TAKEN TO VEHICLE VIA GURNEY WITH ALL PERSONAL BELONGINGS. NO DISTRESS NOTED AT TIME OF DEPARTURE. REPORT GIVEN TO ARU
[2020-03-20] MEDS ORDERED: IBUPROFEN 400 MG TABLET ONE (02:47)
== END 2020-03-19 16:00 | DRG 309 ==
LOC: ER 12:08 → TRANSITION 15:11 → ICU 17:17 → MED 03-15 15:37
PROVIDERS: ADMIT Student in an Organized Health Care Education/Training Program; ATTEND Nurse Practitioner Acute Care
DX: I48.91 Unspecified atrial fibrillation (principal); D68.59 Other primary thrombophilia; E44.0 Moderate protein-calorie malnutrition; F10.239 Alcohol dependence with withdrawal, unspecified; E87.6 Hypokalemia; E83.42 Hypomagnesemia; Z79.82 Long term (current) use of aspirin; E11.9 Type 2 diabetes mellitus without complications; F03.90 Unspecified dementia, unspecified severity, without behavioral disturbance, psychotic disturbance, mood disturbance, and anxiety; I10 Essential (primary) hypertension; Z72.0 Tobacco use; R74.01 Elevation of levels of liver transaminase levels; N40.0 Benign prostatic hyperplasia without lower urinary tract symptoms; Y90.8 Blood alcohol level of 240 mg/100 ml or more; D69.59 Other secondary thrombocytopenia; G47.33 Obstructive sleep apnea (adult) (pediatric); E66.01 Morbid (severe) obesity due to excess calories; Z68.28 Body mass index [BMI] 28.0-28.9, adult; R09.02 Hypoxemia; J44.9 Chronic obstructive pulmonary disease, unspecified; J32.9 Chronic sinusitis, unspecified; F10.229 Alcohol dependence with intoxication, unspecified
CPT/HCPCS: 36415; 36600; 70450-TC; 70486-TC; 71045-TC; 72125-TC; 80048-TC; 80053-TC; 80061-TC; 80076-TC; 82140-TC; 82436-TC; 82803-TC; 83735-TC; 83935-TC; 84100-TC; 84133-TC; 84300-TC; 84443-TC; 84484-TC; 85025-TC; 85730-TC; 87081-TC; 93307-TC; 93970-TC; 97112-TC; 97116-TC; 97530-TC; G0378; G0480; J2060; J3475; J3480; J3490; J7030; J7050

== ENCOUNTER 2021-02-12 06:13 | Inpatient (IN) | payer MEDICARE, OTHER ==
[~2021-02-12] VITALS: Ht 170.2 cm; Wt 90.3 kg
[2021-02-12] VITALS (19 sets, daily range): BP systolic 106–177; BP diastolic 57–96
[~2021-02-12 06:13] MED LIST: AMLO-213 PO; ASPI-1420 PO; CARV12.52 PO; DAPA5TAB PO; DONE5TAB34 PO; DULA0.75 SQ; ESCI20TA PO; FINA5TAB11 PO; FLUT1BLS INH; MEMA28CA5 PO; METF-440 PO; PANT40TA49 PO; RISP1TAB97 PO; TAMS-12 PO
--- NOTE | 2021-02-12 06:33 | NUR ---
NAMITA Kirk [facility] C/O DRINKING ALCOHOL ALL NIGHT. PATIENT ON 4L NC SATTING AT 98%. PATIENT IS MALTESE SPEAKING ONLY. PLACED IN BED 09 ON MONITOR AND POX.
--- NOTE | 2021-02-12 06:44 | NUR ---
SR. MERCHANDISE PLANNER @ BEDSIDE
[2021-02-12 06:55] LABS: BASOPHILS # (AUTO) 0.1 K/uL (0.0-0.2); HEMATOCRIT 45 % (39-51); HEMOGLOBIN 14.9 g/dL (13.5-17.5); LYMPHOCYTES # (AUTO) 4.3 K/uL (0.8-4.8); LYMPHOCYTES % (AUTO) 45.7 % (20.0-44.0); MEAN CORPUSCULAR HGB CONC 33 g/dl (31.0-36.0); MEAN CORPUSCULAR VOLUME 97 fL (80-96); MONOCYTES # (AUTO) 0.7 K/uL (0.1-1.30); MONOCYTES % (AUTO) 7.3 % (2.0-12.0); NEUTROPHILS # (AUTO) 4.1 K/uL (1.8-8.9); PLATELET COUNT (AUTO) 220 K/uL (150-450); RED BLOOD CELL COUNT(AUTO) 4.69 MIL/uL (4.5-6.0); WHITE BLOOD COUNT (AUTO) 9.4 K/uL (4.3-11.0)
[2021-02-12 07:03] LABS: CALCIUM, SERUM 7.6 mg/dL (8.5-10.1); CARBON DIOXIDE 27 mmol/L (21-32); CHLORIDE 103 mmol/L (98-107); CREATININE 1.1 mg/dL (0.6-1.3); GLUCOSE 178 mg/dL (74-106); POTASSIUM 3.2 mmol/L (3.5-5.1); SODIUM SERUM 141 mmol/L (136-145); UREA NITROGEN, BLOOD 13 mg/dL (7-18)
[2021-02-12 07:10] LABS: ALANINE AMINOTRANSFERASE 22 U/L (12-78); ALBUMIN 2.8 g/dL (3.4-5.0); ALCOHOL, BLOOD 409 mg/dL (0-0); ALKALINE PHOSPHATASE 74 U/L (46-116); ASPARTATE AMINOTRANSFERASE 21 U/L (15-37); BILIRUBIN,DIRECT 0.1 mg/dL (0.0-0.2); BILIRUBIN,TOTAL 0.1 mg/dL (0.2-1.0); TOTAL PROTEIN, SERUM 6.6 g/dL (6.4-8.2)
[2021-02-12 07:20] LABS: ACETAMINOPHEN 0 ug/ml (10-30)
[2021-02-12] MEDS ORDERED: LORAZEPAM INJ 2 MG/ML VIAL IV ONE (07:30)
[2021-02-12] MEDS ORDERED: DILTIAZEM HCL 50 MG IV IV ONE ×2 (07:30→09:00)
[2021-02-12] MEDS ORDERED: Thiamine 100 MG in IV D5W 50 ML IV SCH ×2 (07:30→10:30)
[2021-02-12] MEDS ORDERED: ONDANSETRON HCL/PF - ER 4 MG/2 ML VIAL IV ONE (07:30)
[2021-02-12] MEDS ORDERED: LORAZEPAM 1 MG TABLET ONE (07:51)
[2021-02-12] MEDS ORDERED: ONDANSETRON HCL/PF 4 MG/2 ML VIAL ONE (07:52)
[2021-02-12] MEDS ORDERED: DILTIAZEM HCL 50 MG IV ONE (07:53)
[2021-02-12] MEDS ORDERED: LORAZEPAM INJ 2 MG/ML VIAL ONE (07:54)
--- NOTE | 2021-02-12 08:00 | NUR ---
BP 128/66. PER HIGH SCHOOL LEARNING SUPPORT TEACHER, OK TO ADMINISTER DILTIAZEM
--- NOTE | 2021-02-12 08:11 | NUR ---
PT TAKEN TO CT
--- NOTE | 2021-02-12 08:34 | NUR ---
MOVE SHEET SUBMITTED AND CALLED FOR TELE BED.
[2021-02-12] MEDS ORDERED: POTASSIUM CL. PREMIX PERIPHER. 50 ML ONE ×2 (08:48→10:04)
[2021-02-12] MEDS ORDERED: IV NS 0.9% 1,000 ML BAG IV ONE (09:00)
[2021-02-12] MEDS: POTASSIUM CL. PREMIX PERIPHER. 50 ML IV SCH ×2 (09:14→10:30)
--- NOTE | 2021-02-12 09:19 | NUR ---
covid sample obtained and sent to lab
--- NOTE | 2021-02-12 09:19 | NUR ---
PT CONTINUES TO BE IN A FIB. VISITING NURSE AT BEDSIDE, CONTINUING TO MONITOR.
--- NOTE | 2021-02-12 09:28 | NUR ---
CALLED PHARMACY FOR CARDIZEM DRIP MEDICATION
[2021-02-12] MEDS ORDERED: DILTIAZEM HCL IV 125 MG in IV NS 0.9% 100 ML IV PRN (09:30)
--- NOTE | 2021-02-12 09:54 | NUR ---
PT SLEEPING IN BED, EASILY AROUSABLE BY PHYSICAL STIMULI. PT NOT SPEAKING, ONLY MUMBLES WHEN SPOKEN TO
--- NOTE | 2021-02-12 10:07 | NUR ---
PT CONTINUING TO BE MONITORED, BP 138/80. HR 138. POX 92% ON 3L NC. A VIB ON MONITOR. ON CARDIZEM DRIP
[2021-02-12] MEDS ORDERED: LORAZEPAM INJ 2 MG/ML VIAL IV PRN (10:30)
[2021-02-12] MEDS ORDERED: ONDANSETRON HCL/PF 4 MG/2 ML VIAL IVP PRN (10:30)
[2021-02-12] MEDS ORDERED: Z GUARD REMEDY 4 OZ OINT TP PRN (10:30)
[2021-02-12] MEDS ORDERED: MAGNESIUM HYDROXIDE 30 ML UDC PO PRN (10:30)
[2021-02-12] MEDS ORDERED: ZOLPIDEM TARTRATE 5 MG TABLET PO PRN (10:30)
[2021-02-12] MEDS ORDERED: MAG HYDROX/AL HYDROX/SIMETH 30 ML UDC PO PRN (10:30)
--- NOTE | 2021-02-12 10:40 | NUR ---
urine sample obtained and sent to lab
--- NOTE | 2021-02-12 11:26 | NUR ---
PT SLEEPING IN BED, EASILY AROUSABLE TO PHYSICAL STIMULI
[2021-02-12 12:19] LABS: BILIRUBIN,URINE NEGATIVE (NEGATIVE); COLOR,URINE YELLOW (YELLOW); LEUKOCYTE ESTERASE ,URINE NEGATIVE (NEGATIVE); NITRITE, URINE NEGATIVE (NEGATIVE); PH,URINE 5.5 (5.0-8.0); PROTEIN,URINE 100 mg/dl (NEGATIVE); UGLUCOSE 500 MG/DL mg/dL (NEGATIVE); UROBILINOGEN,URINE 0.2 EU/dL (0.2)
--- NOTE | 2021-02-12 12:31 | NUR ---
ROOM GIVEN 253
[2021-02-12 12:34] LABS: BACTERIA,URINE Few /HPF (None Seen); RBC,URINE 0-3 /HPF (0-2); SQUAMOUS EPITHELIAL CELL,UR Rare /HPF (None Seen); WBC,URINE 0-2 /HPF (0-3)
[2021-02-12 12:35] LABS: HYALINE CASTS, URINE Rare /LPF (None Seen)
--- NOTE | 2021-02-12 12:42 | NUR ---
ATTEMPTED TO CALL FOR REPORT; NURSE NOT AVAILABLE WILL CALL BACK IN 30 MINUTES
--- NOTE | 2021-02-12 12:52 | NUR ---
RN/ICU-ATTEMPTED TO CALL BACK ROUTE DELIVERY CLERK TO GET REPORT, RN NOT AVAILABLE AT THIS TIME.
--- NOTE | 2021-02-12 13:16 | NUR ---
RN/ICU-ADMITTED THIS 65 Y/O MALE FROM ER ACCOMPANIED BY ER STAFF, WEARING STREET CLOTHES.,PT W/ PT. UNDERWEAR WET W/ URINE.STREET CLOTHES CHANGED TO HOSPITAL GOWN, , ANTONIO CARE RENDERED .ADMITTING DIAGNOSIS:ATRIAL FIB W/ RVR.LETHARGIC, AROWSABLE, FILIPINO SPEAKING.ALERT, ORITNTED X 3 PER Roxi Cobb WHO TRANSLATED QUESTIONS ASKED FROM PT.ON 6L/NC, SATS60'S-70'S. NOT IN DISTRESS.EKG ATRIAL FIB. W/ HR 94-110,ATRIAL FIB. BP-147/92.
--- NOTE | 2021-02-12 13:17 | NUR ---
REPORT GIVEN TO GABE CRUZ.
--- NOTE | 2021-02-12 13:17 | NUR ---
REPORT GIVEN TO LEONARDO CRUZ FOR VIVIAN. PT TRANSFERRING TO ICU 253 VIA ACLS PROTOCOL. CARDIZEM IVF INFUSING ORDERED. ALL BELONGINGS WITH PT.
--- NOTE | 2021-02-12 13:17 | NUR ---
IV CARDIZEM DRIP INFUSING TO FLOOR.
--- NOTE | 2021-02-12 13:20 | NUR ---
RN/ICU- ON CARDIZEM DRIP AT 15MG/HR. WILL TITRATE AND WILL HOL FOR BP-90 AND HR55/MIN.
--- NOTE | 2021-02-12 13:30 | NUR ---
RN/ICU- RT HERE TO ASSESS PT. AND IMMEDIATELY CHANGED NC TO NRB, NOTED SATS. STARTED TO GO UP TO THE 80'S, 90'S.WILL MONITOR PT CLOSELY AND REFER PER PROTOCOL.
[2021-02-12] MEDS: DILTIAZEM HCL IV 125 MG in IV NS 0.9% 100 ML IV PRN ×2 (13:33→17:44)
[2021-02-12 14:00] LABS: ABG BASE EXCESS -0.5 mmol/L; ABG OXYGEN SATURATION 98.7 % (92.0-98.5); ABG PCO2 41.8 mmHg (35.0-45.0); ABG PH 7.387 (7.350-7.450); ABG PO2 157.5 mmHg (75.0-100.0); COHb 2.1 % (0.5-1.5); O2Hb 96.6 % (94.0-97.0); VENT MODE, BG NRB
--- NOTE | 2021-02-12 14:00 | NUR ---
RN/ICU- ABG DONE BY RT W/ RESULTS NOTED. WILL NOTIFY HOSPITALIST PER PROTOCOL.
[2021-02-12] MEDS ORDERED: DEXTROSE 50%-WATER 50 ML DISP.SYRIN IV PRN (16:00)
[2021-02-12] MEDS: LEVOFLOXACIN 500 MG /D5W 100ML 500 MG in PREMIX 1 EA IV SCH (16:35)
--- NOTE | 2021-02-12 16:40 | NUR ---
RN/ICU- PT. AROWSABLE, ASSESSED ABILITY TO SWALLOW, PT. ABLE TO SWALLOW WITH WATER AND THICKENED LIQUID. ABLE TO TAKE PO MEDS. ASPIRATION PRECAUTIONS, HOB AT 60 DEGREES AT ALL TIMES.
[2021-02-12] MEDS: MEMANTINE HCL 5 MG TABLET PO SCH (16:54)
[2021-02-12] MEDS ORDERED: CARVEDILOL 12.5 MG TABLET PO SCH (17:00)
[2021-02-12] MEDS: BLOOD SUGAR DIAGNOSTIC 1 EACH STRIP VI SCH ×2 (17:06→21:26)
[2021-02-12] MEDS: risperiDONE 1 MG TABLET PO SCH (17:50)
[2021-02-12] MEDS: METOPROLOL TARTRATE 50 MG TABLET PO SCH ×2 (18:26→21:00)
--- NOTE | 2021-02-12 19:20 | NUR ---
CIVIL ENGINEERING DESIGNER NOTES RECEIVED PT FOR CONTINUITY OF CARE. PATIENT IN BED SLEEPING COMFORTABLY IN NO S/SX OF ACUTE DISTRESS AT THIS TIME; CURRENTLY ON 15L OF 02 VIA NON-REBREATHER MASK; WITH 02 SAT >92% AT THIS TIME. WITH IV ACCESS @ R AC #20, L AC#18 AND R HAND #20 ALL PATENT, INTACT AND FLUSHING WELL; NO S/S OF INFECTION OR INFILTRATION. RUNNING CARDIZEM DRIP@ 15MG/HR MONITORED PER PROTOCOL. WILL ENSURE SAFETY MEASURES WITHIN THE SHIFT. PATIENT BED ALARM IS ON. HEAD OF BED ELEVATED. BED IS LOCKED, IN LOWEST POSITION AND SIDE RAILS UP. CALL LIGHT WITHIN REACH OF THE PATIENT. APPLICABLE ISOLATION PRECAUTIONS IN PLACE. WILL CONTINUE TO MONITOR AND REASSESS FOR ANY CHANGES AND WILL CARRY OUT ANY ONGOING AND ACTIVE MD ORDER.
--- NOTE | 2021-02-12 21:05 | NUR ---
RN NOTES LOPRESSOR 50MG/TAB DUE ON 2099 NOT GIVEN, WAS LAST GIVEN @1826 AND PER ORDER GIVEN Q12H. ALSO PT IS RECEIVING CARDIZEM DRIP @15MG/HR. TECHNICAL DELIVERY MANAGER WELL AWARE.
[2021-02-12] MEDS: TAMSULOSIN 0.4 MG CAP.SR.24H PO SCH (21:22)
[2021-02-12] MEDS: *INSULIN REGULAR(HUMULIN R)HUM 100 UNIT/ML VIAL SQ PRN (21:28)
[2021-02-12] MEDS ORDERED: DONEPEZIL 5 MG TABLET PO SCH (22:00)
--- NOTE | 2021-02-12 22:00 | NUR ---
RN NOTES RN TRIED TO SWITCH PT O2 SUPPORT FROM NON-REBREATHER MASK TO NC@6L & SIMPLE MASK @10L; NEITHER OF TWO WAS ABLE TO SUSTAIN >88% 02 SAT. PATIENT SWITCHED BACK TO NRB MASK @15L. PAYROLL TECHNICIAN WELL AWARE.
[2021-02-13] VITALS (48 sets, daily range): BP systolic 96–165; BP diastolic 54–106
--- NOTE | 2021-02-13 00:05 | NUR ---
RN NOTES PATIENT REMAINED TO BE IN NO SIGNS OF ACUTE RESPIRATORY DISTRESS , VITAL SIGNS WNL AT THIS TIME. ELECTRONIC WARFARE TECHNICAL MADE AWARE. WILL CONTINUE TO MONITOR AND REASSESS FOR ANY CHANGES THROUGHOUT THE SHIFT.
[2021-02-13] MEDS: DILTIAZEM HCL IV 125 MG in IV NS 0.9% 100 ML IV PRN ×3 (02:09→17:05)
[2021-02-13 03:58] LABS: BASOPHILS # (AUTO) 0.1 K/uL (0.0-0.2); BASOPHILS % (AUTO) 0.5 % (0.0-2.0); EOSINOPHILS % (AUTO) 0.1 % (0.0-6.0); HEMATOCRIT 43 % (39-51); HEMOGLOBIN 14.1 g/dL (13.5-17.5); LYMPHOCYTES # (AUTO) 1.1 K/uL (0.8-4.8); LYMPHOCYTES % (AUTO) 8.7 % (20.0-44.0); MEAN CORPUSCULAR HGB CONC 33 g/dl (31.0-36.0); MEAN CORPUSCULAR VOLUME 97 fL (80-96); MONOCYTES # (AUTO) 0.9 K/uL (0.1-1.30); MONOCYTES % (AUTO) 6.8 % (2.0-12.0); NEUTROPHILS % (AUTO) 83.9 % (43.0-81.0); PLATELET COUNT (AUTO) 185 K/uL (150-450); RED BLOOD CELL COUNT(AUTO) 4.46 MIL/uL (4.5-6.0); WHITE BLOOD COUNT (AUTO) 13.2 K/uL (4.3-11.0)
--- NOTE | 2021-02-13 04:00 | NUR ---
RN NOTES NO NOTED CHANGES IN PATIENT CONDITION AT THIS TIME; PATIENT VITALS STABLE, NO SIGNS OF ACUTE RESPIRATORY DISTRESS. AM PATIENT CARE RENDERED.WILL CONTINUE TO MONITOR AND REASSESS FOR ANY CHANGES THROUGHOUT THE SHIFT.
[2021-02-13 04:20] LABS: ALBUMIN 2.5 g/dL (3.4-5.0); BILIRUBIN,DIRECT 0.1 mg/dL (0.0-0.2); BILIRUBIN,TOTAL 0.4 mg/dL (0.2-1.0); CALCIUM, SERUM 7.8 mg/dL (8.5-10.1); CREATININE 0.8 mg/dL (0.6-1.3); MAGNESIUM 1.6 mg/dL (1.8-2.4); PHOSPHORUS 3.8 mg/dL (2.5-4.9); POTASSIUM 3.8 mmol/L (3.5-5.1); TOTAL PROTEIN, SERUM 6.4 g/dL (6.4-8.2)
--- NOTE | 2021-02-13 05:00 | NUR ---
RN NOTES REATTEMPTED TO CHANGE AND SWITCH PT FROM NRB MASK TO NC AND SIMPLE MASK FROM [id number]; BUT PT UNABLE TO TOLERATE; O2 SAT GOES <88%. PLACED PT BACK TO RNB MASK AND 02 AT THIS TIME IS >93%. [place] APPRENTICE MADE AWARE. WILL CONTINUE TO ASSESS AND MONITOR THROUGHOUT THE SHIFT.
--- NOTE | 2021-02-13 07:02 | NUR ---
RN CLOSING NOTE: PATIENT REMAINS IN ROOM IN NO SIGNS OF RESPIRATORY DISTRESS, PATIENT STILL ON NRB MASK @15L OF 02 ;TOLERATING WELL SATURATING @ >95% SP02. SAFETY MEASURES IMPLEMENTED, BED IN LOWEST POSITION, LOCKED, SIDE RAILS UP, CALL LIGHT WITHIN REACH. ALL NEEDS AND ORDERS ADDRESSED DURING THE SHIFT. IV ACCESS MAINTAINED INTACT, SECURED AND FLUSHING WELL. ALL DUE MEDS GIVEN ORDERED & SCHEDULED ; PATIENT TOLERATED WELL. STILL WITH ONGOING CARDIZEM DRIP @15MG/HR MONITORED PER PROTOCOL. PATIENT KEPT CLEAN AND COMFORTABLE WITHIN THE SHIFT. PATIENT ENDORSED TO INCOMING SHIFT RN WITH STABLE VITAL SIGN AND FOR CONTINUITY OF CARE.
--- NOTE | 2021-02-13 07:15 | NUR ---
ICU OPENING NOTES RECEIVED PT AWAKE, A/O X2-3. ON 15L O2 VIA NON-REBREATHER MASK. O2 SAT @97%. NO SOB OR ANY S/SX OF ACUTE DISTRESS AT THIS TIME. IV ACCESS ON RAC #20, LAC#18 AND R HAND #20 ALL INTACT, PATENT AND FLUSHED. RUNNING CARDIZEM DRIP @15MG/HR. SAFETY MEASURES IMPLEMENTED. CALL LIGHT WITHIN REACH. BED ALARM ON. HOB ELEVATED. BED LOCKED AND IN LOWEST POSITION WITH SIDE RAILS UP X3. WILL CONTINUE TO MONITOR.
[2021-02-13] MEDS: BLOOD SUGAR DIAGNOSTIC 1 EACH STRIP VI SCH ×4 (08:18→21:16)
[2021-02-13] MEDS: INSULIN REGULAR, HUMAN 100 UNIT/ML 3 ML VIAL SQ PRN ×3 (08:20→18:16)
[2021-02-13] MEDS: FLUTICASONE/VILANTEROL 1 EACH BLST.W.DEV IH SCH (08:51)
[2021-02-13] MEDS: FINASTERIDE (5 MG) 5 MG TABLET PO SCH (08:52)
[2021-02-13] MEDS: MEMANTINE HCL 5 MG TABLET PO SCH ×2 (08:52→17:00)
[2021-02-13] MEDS: PANTOPRAZOLE 40 MG TABLET.DR PO SCH (08:52)
[2021-02-13] MEDS: ASPIRIN EC 81 MG TABLET.DR PO SCH (08:53)
[2021-02-13] MEDS: THIAMINE HCL 100 MG TABLET PO SCH (08:53)
[2021-02-13] MEDS: ESCITALOPRAM OXALATE (10 MG) 10 MG TABLET PO SCH (08:53)
[2021-02-13] MEDS ORDERED: Thiamine 100 MG in IV D5W 50 ML IV SCH (09:00)
[2021-02-13] MEDS ORDERED: Medication Not On Formulary EA (Dapagliflozin Propanediol (Farxiga) 5 MG) PO SCH (09:00)
[2021-02-13] MEDS ORDERED: MAGNESIUM OXIDE 400 MG TABLET PO ONE (09:00)
[2021-02-13] MEDS: METOPROLOL TARTRATE 50 MG TABLET PO SCH ×2 (09:00→21:12)
[2021-02-13] MEDS: AMLODIPINE BESYLATE 10 MG TABLET PO SCH (09:00)
[2021-02-13] MEDS: methylPREDNISolone SOD SUCC 125 MG/2ML VIAL IV SCH ×2 (12:51→21:11)
[2021-02-13] MEDS: IPRATROPIUM NEB FS 0.5 MG/2.5 ML AMPUL.NEB NEB SCH ×2 (14:30→19:47)
--- NOTE | 2021-02-13 15:19 | NUR ---
SS Consult: SS consult for ETOH. Pt. Is a 65-year-old male. Pt. speaks [place]. SW had ICU nurse translate. Pt. does not demonstrate adequate insight to the reason for hospitalization. Per pt., he does not remember. Pt. was oriented x3, alert, and cooperative. During interview, pt. was capable of following directions, made appropriate eye-contact, and appeared well-groomed/unkept. Pt.s speech was at a normal rate. Pt.s mood was elevated. MAHSA explored pt.s hx of mental health and substance abuse. Pt. reported no hx of mental health, suicidal or homicidal ideation. Pt. denies auditory hallucinations, visual hallucinations, paranoia, or delusions. Per pt., he drinks and smokes cigarettes. MAHSA explored pt.s living situation. Per pt., he lives alone [[address] [place] [address]]. Per pt., he reports having no adequate support. Pt. mentioned he has no family. Plan: SW provided available addiction resources and pt. accepted. Resources Provided: Substance Abuse resources provided included: [facility] Substance Abuse Self-Helpline ([facility]) ; [facility] [address] [facility] [place] [id number] ; [facility] [address] [facility] [phone] ; [facility] [address] [facility] [phone] ; [facility] [address] [facility] [phone] ; [facility] [address] [facility] [address] ; [facility] [address] [facility] [id number] ; [facility] Substance Abuse Helpline([facility])-[facility] ; [facility] ; [facility] [place]; [facility] [place]; [facility] [place]; [facility] [place]; [facility] [place]; [facility] [place]; [facility] [place]; [facility], [facility]. Angie Forrester; Alcoholics Anonymous [facility]; Charli ; Marijuana Anonymous [facility]; Narcotics Anonymous [email or web address];
[2021-02-13] MEDS: LEVOFLOXACIN 500 MG /D5W 100ML 500 MG in PREMIX 1 EA IV SCH (16:19)
[2021-02-13] MEDS: risperiDONE 1 MG TABLET PO SCH (18:00)
--- NOTE | 2021-02-13 18:00 | NUR ---
RN NOTES SOB NOTED. REFUSED PO MEDS. NOT TOLERATING WATER AT THIS TIME. PO MEDS NON ADMIN.
[2021-02-13] MEDS ORDERED: FUROSEMIDE 20 MG/2 ML VIAL IV ONE (18:30)
--- NOTE | 2021-02-13 19:29 | NUR ---
RN CLOSING NOTES PT RESTING IN BED. ON SIMPLE MASK 10L TOLERATING WELL. NO SOB AT THIS TIME. DENIES PAIN. KEPT CLEAN AND COMFORTABLE. ALL DUE MEDS GIVEN. SAFETY MEASURES IN PLACE. ENDORSED TO NIGHT RN FOR VIVIAN.
--- NOTE | 2021-02-13 19:35 | NUR ---
COBOL MAINFRAME DEVELOPER NOTES RECEIVED PT FOR CONTINUITY OF CARE. PATIENT IN BED SLEEPING COMFORTABLY IN NO S/SX OF ACUTE DISTRESS AT THIS TIME; CURRENTLY ON 10L OF 02 VIA SIMPLE MASK; WITH 02 SAT >95% AT THIS TIME. WITH IV ACCESS @ R HAND #20 PATENT, INTACT AND FLUSHING WELL; NO S/S OF INFECTION OR INFILTRATION. RUNNING CARDIZEM DRIP@ 15MG/HR MONITORED PER PROTOCOL. WILL ENSURE SAFETY MEASURES WITHIN THE SHIFT. PATIENT BED ALARM IS ON. HEAD OF BED ELEVATED. BED IS LOCKED, IN LOWEST POSITION AND SIDE RAILS UP. CALL LIGHT WITHIN REACH OF THE PATIENT. APPLICABLE ISOLATION PRECAUTIONS IN PLACE. WILL CONTINUE TO MONITOR AND REASSESS FOR ANY CHANGES AND WILL CARRY OUT ANY ONGOING AND ACTIVE MD ORDER.
[2021-02-13] MEDS: TAMSULOSIN 0.4 MG CAP.SR.24H PO SCH (21:11)
[2021-02-14] VITALS (48 sets, daily range): BP systolic 105–145; BP diastolic 52–97
--- NOTE | 2021-02-14 | NUR ---
RN NOTES PATIENT REMAINED TO BE IN NO SIGNS OF ACUTE RESPIRATORY DISTRESS , VITAL SIGNS WNL AT THIS TIME. TALENT SOLUTIONS MANAGER MADE AWARE. WILL CONTINUE TO MONITOR AND REASSESS FOR ANY CHANGES THROUGHOUT THE SHIFT.
[2021-02-14] MEDS: DILTIAZEM HCL IV 125 MG in IV NS 0.9% 100 ML IV PRN ×3 (01:07→17:35)
[2021-02-14] MEDS: IPRATROPIUM NEB FS 0.5 MG/2.5 ML AMPUL.NEB NEB SCH ×4 (02:32→19:30)
[2021-02-14 05:05] LABS: BASOPHILS % (AUTO) 0.2 % (0.0-2.0); HEMATOCRIT 43 % (39-51); HEMOGLOBIN 14.2 g/dL (13.5-17.5); LYMPHOCYTES # (AUTO) 0.6 K/uL (0.8-4.8); LYMPHOCYTES % (AUTO) 8.9 % (20.0-44.0); MEAN CORPUSCULAR HGB CONC 33 g/dl (31.0-36.0); MEAN CORPUSCULAR VOLUME 96 fL (80-96); MONOCYTES # (AUTO) 0.1 K/uL (0.1-1.30); MONOCYTES % (AUTO) 1.3 % (2.0-12.0); NEUTROPHILS # (AUTO) 6.4 K/uL (1.8-8.9); NEUTROPHILS % (AUTO) 89.6 % (43.0-81.0); PLATELET COUNT (AUTO) 169 K/uL (150-450); RED BLOOD CELL COUNT(AUTO) 4.45 MIL/uL (4.5-6.0); WHITE BLOOD COUNT (AUTO) 7.1 K/uL (4.3-11.0)
[2021-02-14] MEDS: methylPREDNISolone SOD SUCC 125 MG/2ML VIAL IV SCH ×3 (05:13→21:08)
[2021-02-14 05:51] LABS: ALBUMIN 2.8 g/dL (3.4-5.0); BILIRUBIN,TOTAL 0.6 mg/dL (0.2-1.0); CALCIUM, SERUM 8.5 mg/dL (8.5-10.1); CREATININE 0.8 mg/dL (0.6-1.3); MAGNESIUM 1.5 mg/dL (1.8-2.4); PHOSPHORUS 2.1 mg/dL (2.5-4.9); TOTAL PROTEIN, SERUM 7.1 g/dL (6.4-8.2)
--- NOTE | 2021-02-14 06:59 | NUR ---
RN CLOSING NOTE: PATIENT REMAINS IN ROOM IN NO SIGNS OF RESPIRATORY DISTRESS, PATIENT STILL ON SIMPLE MASK @8L OF 02;TOLERATING WELL SATURATING @ >95% SP02. SAFETY MEASURES IMPLEMENTED, BED IN LOWEST POSITION, LOCKED, SIDE RAILS UP, CALL LIGHT WITHIN REACH. ALL NEEDS AND ORDERS ADDRESSED DURING THE SHIFT. IV ACCESS MAINTAINED INTACT, SECURED AND FLUSHING WELL. ALL DUE MEDS GIVEN ORDERED & SCHEDULED ; PATIENT TOLERATED WELL. STILL WITH ONGOING CARDIZEM DRIP @15MG/HR MONITORED PER PROTOCOL. PATIENT KEPT CLEAN AND COMFORTABLE WITHIN THE SHIFT. PATIENT ENDORSED TO INCOMING SHIFT RN WITH STABLE VITAL SIGN AND FOR CONTINUITY OF CARE.
--- NOTE | 2021-02-14 07:10 | NUR ---
ICU OPENING NOTES RECEIVED PT RESTING IN BED, A/O X3-4. ON 10L O2 VIA SIMPLE MASK. O2 SAT @97%. NO SOB OR ANY S/SX OF ACUTE DISTRESS AT THIS TIME. IV ACCESS ON L HAND # 20 RUNNING CARDIZEM DRIP @15MG/HR. SAFETY MEASURES IMPLEMENTED. CALL LIGHT WITHIN REACH. BED ALARM ON. HOB ELEVATED. BED LOCKED AND IN LOWEST POSITION WITH SIDE RAILS UP X3. WILL CONTINUE TO MONITOR.
[2021-02-14] MEDS: BLOOD SUGAR DIAGNOSTIC 1 EACH STRIP VI SCH ×4 (07:51→21:26)
[2021-02-14] MEDS: INSULIN REGULAR, HUMAN 100 UNIT/ML 3 ML VIAL SQ PRN ×3 (07:52→17:52)
[2021-02-14] MEDS: MEMANTINE HCL 5 MG TABLET PO SCH ×2 (09:01→16:39)
[2021-02-14] MEDS: PANTOPRAZOLE 40 MG TABLET.DR PO SCH (09:01)
[2021-02-14] MEDS: ESCITALOPRAM OXALATE (10 MG) 10 MG TABLET PO SCH (09:01)
[2021-02-14] MEDS: THIAMINE HCL 100 MG TABLET PO SCH (09:01)
[2021-02-14] MEDS: ASPIRIN EC 81 MG TABLET.DR PO SCH (09:01)
[2021-02-14] MEDS: FINASTERIDE (5 MG) 5 MG TABLET PO SCH (09:01)
[2021-02-14] MEDS: AMLODIPINE BESYLATE 10 MG TABLET PO SCH (09:02)
[2021-02-14] MEDS: METOPROLOL TARTRATE 50 MG TABLET PO SCH ×2 (09:02→21:08)
[2021-02-14] MEDS: FLUTICASONE/VILANTEROL 1 EACH BLST.W.DEV IH SCH (09:03)
[2021-02-14] MEDS ORDERED: MAGNESIUM OXIDE 400 MG TABLET PO ONE (12:00)
[2021-02-14] MEDS ORDERED: NEUTRA PHOS 1 POWD.PACKET PO ONE (12:00)
[2021-02-14] MEDS: LEVOFLOXACIN 500 MG /D5W 100ML 500 MG in PREMIX 1 EA IV SCH (16:36)
[2021-02-14] MEDS: FUROSEMIDE 40 MG/4 ML VIAL IV SCH (16:39)
[2021-02-14] MEDS: risperiDONE 1 MG TABLET PO SCH (18:10)
--- NOTE | 2021-02-14 19:30 | NUR ---
PEOPLESOFT PROGRAMMER NOTES RECEIVED PT FOR CONTINUITY OF CARE. PATIENT IN BED SLEEPING COMFORTABLY IN NO S/SX OF ACUTE DISTRESS AT THIS TIME; CURRENTLY ON 10L OF 02 VIA SIMPLE MASK; WITH 02 SAT >90% AT THIS TIME. CURRENTLY WITH RUNNING CARDIZEM DRIP@ 15MG/HR MONITORED PER PROTOCOL. WILL ENSURE SAFETY MEASURES WITHIN THE SHIFT. PATIENT BED ALARM IS ON. HEAD OF BED ELEVATED. BED IS LOCKED, IN LOWEST POSITION AND SIDE RAILS UP. CALL LIGHT WITHIN REACH OF THE PATIENT. APPLICABLE ISOLATION PRECAUTIONS IN PLACE. WILL CONTINUE TO MONITOR AND REASSESS FOR ANY CHANGES AND WILL CARRY OUT ANY ONGOING AND ACTIVE MD ORDER.
--- NOTE | 2021-02-14 20:28 | NUR ---
RN NOTES FACILITATED INSERTION OF ADDITIONAL IV LINE/ACCESS @ R HAND G#22; SALINE LOCK, SECURED, INTACT AND FLUSHING WELL. WOODYARD OPERATOR MADE AWARE.
[2021-02-14] MEDS: TAMSULOSIN 0.4 MG CAP.SR.24H PO SCH (21:09)
[2021-02-14] MEDS: *INSULIN REGULAR(HUMULIN R)HUM 100 UNIT/ML VIAL SQ PRN (21:25)
[2021-02-15] VITALS (39 sets, daily range): BP systolic 101–151; BP diastolic 47–97
[2021-02-15] MEDS: IPRATROPIUM NEB FS 0.5 MG/2.5 ML AMPUL.NEB NEB SCH ×4 (01:21→21:01)
[2021-02-15] MEDS: DILTIAZEM HCL IV 125 MG in IV NS 0.9% 100 ML IV PRN (01:43)
[2021-02-15] MEDS: methylPREDNISolone SOD SUCC 125 MG/2ML VIAL IV SCH ×3 (04:14→16:41)
[2021-02-15 05:23] LABS: BASOPHILS % (AUTO) 0.1 % (0.0-2.0); HEMATOCRIT 41 % (39-51); HEMOGLOBIN 13.7 g/dL (13.5-17.5); LYMPHOCYTES # (AUTO) 0.7 K/uL (0.8-4.8); LYMPHOCYTES % (AUTO) 6.2 % (20.0-44.0); MEAN CORPUSCULAR HGB CONC 34 g/dl (31.0-36.0); MEAN CORPUSCULAR VOLUME 96 fL (80-96); MONOCYTES # (AUTO) 0.3 K/uL (0.1-1.30); MONOCYTES % (AUTO) 3.1 % (2.0-12.0); NEUTROPHILS # (AUTO) 9.5 K/uL (1.8-8.9); NEUTROPHILS % (AUTO) 90.6 % (43.0-81.0); PLATELET COUNT (AUTO) 180 K/uL (150-450); RED BLOOD CELL COUNT(AUTO) 4.24 MIL/uL (4.5-6.0); WHITE BLOOD COUNT (AUTO) 10.5 K/uL (4.3-11.0)
[2021-02-15 05:44] LABS: ALBUMIN 2.5 g/dL (3.4-5.0); BILIRUBIN,TOTAL 0.5 mg/dL (0.2-1.0); CALCIUM, SERUM 8.4 mg/dL (8.5-10.1); CREATININE 0.8 mg/dL (0.6-1.3); MAGNESIUM 1.8 mg/dL (1.8-2.4); PHOSPHORUS 2.2 mg/dL (2.5-4.9); POTASSIUM 3.6 mmol/L (3.5-5.1); TOTAL PROTEIN, SERUM 6.4 g/dL (6.4-8.2)
--- NOTE | 2021-02-15 06:48 | NUR ---
RN CLOSING NOTE: PATIENT REMAINS IN ROOM IN NO SIGNS OF RESPIRATORY DISTRESS, PATIENT STILL ON SIMPLE MASK @10L OF 02;TOLERATING WELL SATURATING @ >95% SP02. SAFETY MEASURES IMPLEMENTED, BED IN LOWEST POSITION, LOCKED, SIDE RAILS UP, CALL LIGHT WITHIN REACH. ALL NEEDS AND ORDERS ADDRESSED DURING THE SHIFT. IV ACCESS MAINTAINED INTACT, SECURED AND FLUSHING WELL. ALL DUE MEDS GIVEN ORDERED & SCHEDULED ; PATIENT TOLERATED WELL. STILL WITH ONGOING CARDIZEM DRIP @10MG/HR MONITORED PER PROTOCOL. PATIENT KEPT CLEAN AND COMFORTABLE WITHIN THE SHIFT. PATIENT ENDORSED TO INCOMING SHIFT RN WITH STABLE VITAL SIGN AND FOR CONTINUITY OF CARE.
--- NOTE | 2021-02-15 07:17 | NUR ---
RECEIVED PT ON BED SLEEPING EASY TO WAKE UP ON O2 10L VIA SIMPLE MASK SPO2 95-97% TELE MONITOR READS CONTROLLED AFIB HR 70-85, ON CARDIZEM DRIP @ 10 MG/HR VIA LHAND# 20 INFUSING WELL, ABLE TO DRINK WATER WITH NO DIFFICULTY USING URINALS TO PEE, BED ON LOWEST POSITION AND LOCKED SIDE RAILS UP X2 CALL LIGHT WITHIN REACH WILL CONT TO MONITOR
[2021-02-15] MEDS: BLOOD SUGAR DIAGNOSTIC 1 EACH STRIP VI SCH ×2 (07:29→12:01)
[2021-02-15] MEDS: INSULIN REGULAR, HUMAN 100 UNIT/ML 3 ML VIAL SQ PRN ×3 (07:32→18:15)
[2021-02-15] MEDS: MEMANTINE HCL 5 MG TABLET PO SCH ×2 (08:31→16:41)
[2021-02-15] MEDS: ESCITALOPRAM OXALATE (10 MG) 10 MG TABLET PO SCH (08:31)
[2021-02-15] MEDS: FUROSEMIDE 40 MG/4 ML VIAL IV SCH ×2 (08:31→16:41)
[2021-02-15] MEDS: PANTOPRAZOLE 40 MG TABLET.DR PO SCH (08:32)
[2021-02-15] MEDS: METOPROLOL TARTRATE 50 MG TABLET PO SCH ×2 (08:32→23:12)
[2021-02-15] MEDS: THIAMINE HCL 100 MG TABLET PO SCH (08:32)
[2021-02-15] MEDS: FINASTERIDE (5 MG) 5 MG TABLET PO SCH (08:32)
[2021-02-15] MEDS: ASPIRIN EC 81 MG TABLET.DR PO SCH (08:34)
[2021-02-15] MEDS: FLUTICASONE/VILANTEROL 1 EACH BLST.W.DEV IH SCH (08:49)
[2021-02-15] MEDS: AMLODIPINE BESYLATE 10 MG TABLET PO SCH (09:04)
[2021-02-15] MEDS ORDERED: DEXTROSE 50%-WATER 50 ML DISP.SYRIN IV PRN (14:00)
[2021-02-15] MEDS ORDERED: NEUTRA PHOS 1 POWD.PACKET PO ONE (14:00)
[2021-02-15] MEDS: LEVOFLOXACIN 500 MG /D5W 100ML 500 MG in PREMIX 1 EA IV SCH (15:29)
[2021-02-15] MEDS: risperiDONE 1 MG TABLET PO SCH (18:13)
[2021-02-15] MEDS: BLOOD SUGAR DIAGNOSTIC 1 EACH STRIP IN SCH ×2 (18:13→23:13)
--- NOTE | 2021-02-15 19:35 | NUR ---
TRANSFER PT OT ROOM 306-1 VIA ACL PROTOCOL COMMISSIONS ANALYST AT BEDSIDE , PT IS AA/O X4 ON O2 6L VIA MASK SPO2 94% NO SOB NOTED STILL AFIB WITH RVR HR 100-110'S PT ABLE TO VERBALIZED NEEDS,
--- NOTE | 2021-02-15 19:42 | NUR ---
REPORT GIVEN TO ANIBAL CRUZ OF 3W FOR VIVIAN
[2021-02-15] MEDS: TAMSULOSIN 0.4 MG CAP.SR.24H PO SCH (23:11)
[2021-02-16] VITALS: BP 115/68
[2021-02-16] MEDS: INSULIN REGULAR, HUMAN 100 UNIT/ML 3 ML VIAL SQ PRN ×5 (00:06→21:43)
[2021-02-16] MEDS: IPRATROPIUM NEB FS 0.5 MG/2.5 ML AMPUL.NEB NEB SCH ×4 (01:13→19:03)
[2021-02-16 06:00] VITALS: BP 131/98
[2021-02-16] MEDS: BLOOD SUGAR DIAGNOSTIC 1 EACH STRIP IN SCH ×4 (06:19→21:36)
[2021-02-16 06:29] LABS: ALBUMIN 2.5 g/dL (3.4-5.0); BILIRUBIN,TOTAL 0.4 mg/dL (0.2-1.0); CALCIUM, SERUM 8.7 mg/dL (8.5-10.1); CREATININE 0.9 mg/dL (0.6-1.3); POTASSIUM 3.2 mmol/L (3.5-5.1); TOTAL PROTEIN, SERUM 6.3 g/dL (6.4-8.2)
[2021-02-16 06:35] LABS: BASOPHILS % (AUTO) 0.2 % (0.0-2.0); HEMATOCRIT 43 % (39-51); HEMOGLOBIN 14.3 g/dL (13.5-17.5); LYMPHOCYTES # (AUTO) 0.7 K/uL (0.8-4.8); LYMPHOCYTES % (AUTO) 5.9 % (20.0-44.0); MEAN CORPUSCULAR HGB CONC 33 g/dl (31.0-36.0); MEAN CORPUSCULAR VOLUME 95 fL (80-96); MONOCYTES # (AUTO) 0.5 K/uL (0.1-1.30); NEUTROPHILS # (AUTO) 11.1 K/uL (1.8-8.9); NEUTROPHILS % (AUTO) 89.9 % (43.0-81.0); PLATELET COUNT (AUTO) 190 K/uL (150-450); RED BLOOD CELL COUNT(AUTO) 4.51 MIL/uL (4.5-6.0); WHITE BLOOD COUNT (AUTO) 12.3 K/uL (4.3-11.0)
--- NOTE | 2021-02-16 07:18 | NUR ---
RN OPENING NOTE- PT RESTING IN BED, A/O X3-4. ON 5 LPM O2 VIA SIMPLE MASK. O2 SAT @99%. NO SOB OR ANY S/SX OF ACUTE DISTRESS AT THIS TIME. IV ACCESS ON L HAND # 20 SAFETY MEASURES IMPLEMENTED. CALL LIGHT WITHIN REACH. BED ALARM ON. HOB ELEVATED. BED LOCKED AND IN LOWEST POSITION WITH SIDE RAILS UP X3. WILL CONTINUE TO MONITOR./ ASSIST
[2021-02-16 08:00] VITALS: BP 132/90
[2021-02-16] MEDS: FUROSEMIDE 40 MG/4 ML VIAL IV SCH ×2 (08:20→09:53)
[2021-02-16] MEDS: FINASTERIDE (5 MG) 5 MG TABLET PO SCH (08:20)
[2021-02-16] MEDS: methylPREDNISolone SOD SUCC 125 MG/2ML VIAL IV SCH (08:20)
[2021-02-16] MEDS: MEMANTINE HCL 5 MG TABLET PO SCH ×2 (08:21→17:06)
[2021-02-16] MEDS: PANTOPRAZOLE 40 MG TABLET.DR PO SCH (08:21)
[2021-02-16] MEDS: METOPROLOL TARTRATE 50 MG TABLET PO SCH ×2 (08:22→21:34)
[2021-02-16] MEDS: AMLODIPINE BESYLATE 10 MG TABLET PO SCH (08:22)
[2021-02-16] MEDS: ASPIRIN EC 81 MG TABLET.DR PO SCH (08:22)
[2021-02-16] MEDS: THIAMINE HCL 100 MG TABLET PO SCH (08:23)
[2021-02-16] MEDS: ESCITALOPRAM OXALATE (10 MG) 10 MG TABLET PO SCH (08:23)
[2021-02-16] MEDS: FLUTICASONE/VILANTEROL 1 EACH BLST.W.DEV IH SCH (09:18)
[2021-02-16] MEDS: POTASSIUM CHLORIDE 20 MEQ TAB.PRT.SR PO SCH ×2 (11:02→11:47)
--- NOTE | 2021-02-16 11:30 | NUR ---
RN NOTE- PT W PAST HX SMOKING. REQUESTED NICOTINE PATCH. DR HANSEN ORDERED. NICOTINE PATCH 14MG QD. COMPLIED
[2021-02-16] MEDS: NICOTINE PATCH (14MG) 14 MG PATCH.TD24 TD SCH (11:47)
[2021-02-16] MEDS: DILTIAZEM HCL 30 MG TABLET PO SCH ×2 (11:48→17:07)
[2021-02-16 12:00] VITALS: BP 124/94
--- NOTE | 2021-02-16 14:10 | NUR ---
RN NOTE- CARDIZEM TITRATE IV STILL NOTED ON EMR. DR JENKINS NOTIFIED THAT PT STARTED ON PO CARDIZEM AROUND NOON. STATED IF HR BELOW 110 DC ORDER. PTS HR IN 90'S. CARDIZEM IV DC'D PER DR JENKINS
[2021-02-16] MEDS: LEVOFLOXACIN (250MG) 250 MG TABLET PO SCH (15:26)
[2021-02-16 16:00] VITALS: BP 120/77
[2021-02-16] MEDS: risperiDONE 1 MG TABLET PO SCH (17:06)
--- NOTE | 2021-02-16 18:37 | NUR ---
RN CLOSING NOTE- PT IN BED, A/O X3-4. ON 6 LPM O2 VIA SIMPLE MASK. O2 SAT @95%. NO SOB OR ANY S/SX OF ACUTE DISTRESS AT THIS TIME. IV ACCESS ON L HAND # 20 / ANANT MIDLINE . SAFETY MEASURES IMPLEMENTED. CALL LIGHT WITHIN REACH. BED ALARM ON. HOB ELEVATED. BED LOCKED AND IN LOWEST POSITION WITH SIDE RAILS UP X3. WILL CONTINUE TO MONITOR./ ASSIST
--- NOTE | 2021-02-16 19:10 | NUR ---
ENDOCRINOLOGY NURSE NOTE: RECEIVED REPORT. ASSESSED PATIENT. NO CHANGE FROM AM SHIFT CLOSING ASSESSMENT. PATIENT IN NAD AND STABLE AT THIS TIME. ONGOING MONITORING CONTINUES.
[2021-02-16 21:24] VITALS: BP 108/70
[2021-02-16] MEDS: TAMSULOSIN 0.4 MG CAP.SR.24H PO SCH (21:35)
[2021-02-17] VITALS (7 sets, daily range): BP systolic 109–149; BP diastolic 51–90
[2021-02-17] MEDS: IPRATROPIUM NEB FS 0.5 MG/2.5 ML AMPUL.NEB NEB SCH ×4 (01:03→19:35)
[2021-02-17] MEDS: DILTIAZEM HCL 30 MG TABLET PO SCH ×4 (01:38→17:03)
[2021-02-17] MEDS: BLOOD SUGAR DIAGNOSTIC 1 EACH STRIP IN SCH ×4 (06:24→22:13)
[2021-02-17] MEDS: INSULIN REGULAR, HUMAN 100 UNIT/ML 3 ML VIAL SQ PRN ×3 (06:37→17:02)
--- NOTE | 2021-02-17 07:30 | NUR ---
GEAR HOBBER SET UP OPERATOR OPENING NOTES RECEIVED PATIENT AWAKE ON BED WATCHING TV AND A/O X4. ON SIMPLE MASK AT 6LPM TOLERATING WELL. NO SOB NOTED. NOT IN DISTRESS. ON TELE MONITOR CURRENTLY READING UNCONTROLLED A-FIB AT 113-120BPM. WITH NO COMPLAINTS OF PAIN OR DISCOMFORT AT THIS TIME. WITH IV ACCESS AT RIGHT UPPER ARM MIDLINE AND AT RIGHT ARM G22, SALINE LOCKED, INTACT AND PATENT. SAFETY MEASURES IN PLACED. CALL LIGHT WITHIN REACH. BED ON LOWEST LOCKED POSITION, SIDE RAILS UP X2. WILL CONTINUE TO MONITOR.
[2021-02-17 07:44] LABS: HEMATOCRIT 45 % (39-51); LYMPHOCYTES # (AUTO) 1.5 K/uL (0.8-4.8); LYMPHOCYTES % (AUTO) 14.2 % (20.0-44.0); MEAN CORPUSCULAR HGB CONC 33 g/dl (31.0-36.0); MEAN CORPUSCULAR VOLUME 95 fL (80-96); MONOCYTES # (AUTO) 0.8 K/uL (0.1-1.30); MONOCYTES % (AUTO) 7.8 % (2.0-12.0); NEUTROPHILS # (AUTO) 8.5 K/uL (1.8-8.9); PLATELET COUNT (AUTO) 196 K/uL (150-450); RED BLOOD CELL COUNT(AUTO) 4.72 MIL/uL (4.5-6.0); WHITE BLOOD COUNT (AUTO) 10.9 K/uL (4.3-11.0)
[2021-02-17 08:29] LABS: ALBUMIN 2.5 g/dL (3.4-5.0); BILIRUBIN,TOTAL 0.4 mg/dL (0.2-1.0); CALCIUM, SERUM 8.5 mg/dL (8.5-10.1); CREATININE 0.9 mg/dL (0.6-1.3); MAGNESIUM 1.9 mg/dL (1.8-2.4); PHOSPHORUS 3.5 mg/dL (2.5-4.9); POTASSIUM 3.2 mmol/L (3.5-5.1); TOTAL PROTEIN, SERUM 6.2 g/dL (6.4-8.2)
[2021-02-17] MEDS: NICOTINE PATCH (14MG) 14 MG PATCH.TD24 TD SCH (08:56)
[2021-02-17] MEDS: ESCITALOPRAM OXALATE (10 MG) 10 MG TABLET PO SCH (08:56)
[2021-02-17] MEDS: FINASTERIDE (5 MG) 5 MG TABLET PO SCH (08:56)
[2021-02-17] MEDS: ASPIRIN EC 81 MG TABLET.DR PO SCH (08:56)
[2021-02-17] MEDS: THIAMINE HCL 100 MG TABLET PO SCH (08:56)
[2021-02-17] MEDS: PANTOPRAZOLE 40 MG TABLET.DR PO SCH (08:57)
[2021-02-17] MEDS: MEMANTINE HCL 5 MG TABLET PO SCH ×2 (08:57→17:03)
[2021-02-17] MEDS: FUROSEMIDE 40 MG/4 ML VIAL IV SCH (08:57)
[2021-02-17] MEDS: METOPROLOL TARTRATE 50 MG TABLET PO SCH ×2 (08:58→22:12)
[2021-02-17] MEDS: AMLODIPINE BESYLATE 10 MG TABLET PO SCH (08:58)
[2021-02-17] MEDS ORDERED: methylPREDNISolone SOD SUCC 125 MG/2ML VIAL IV SCH (09:00)
[2021-02-17] MEDS: FLUTICASONE/VILANTEROL 1 EACH BLST.W.DEV IH SCH (09:15)
[2021-02-17] MEDS: POTASSIUM CHLORIDE 20 MEQ TAB.PRT.SR PO SCH ×2 (11:13→12:22)
[2021-02-17] MEDS: LEVOFLOXACIN (250MG) 250 MG TABLET PO SCH (13:57)
[2021-02-17] MEDS: risperiDONE 1 MG TABLET PO SCH (17:03)
--- NOTE | 2021-02-17 19:20 | NUR ---
TRAINING AND DEVELOPMENT HEAD OPENING NOTE PATIENT WAS RECEIVED AWAKE IN BED. A/OX4. NO S/S OF DISTRESS, BREATHING SIMPLE FACE MASK AT 6L/MIN. TELE MONITOR AFIB 120 (WAS HIGHER EARLIER AT 140). SAFETY MEASURES IN PLACE: BED AT LOWEST POSITION, RAILS UP X2, CALL XAVIER WITHIN REACH. WILL CONTINUE TO MONITOR PATIENT.
--- NOTE | 2021-02-17 19:30 | NUR ---
SUPERINTENDENT COMMUNICATIONS CLOSING NOTES PATIENT RESTING ON BED AND A/O X4. ON SIMPLE MASK AT 6LPM TOLERATING WELL. NO SOB NOTED. NOT IN DISTRESS. ON TELE MONITOR CURRENTLY READING UNCONTROLLED A-FIB AT 116BPM. WITH NO COMPLAINTS OF PAIN OR DISCOMFORT AT THIS TIME. WITH IV ACCESS AT RIGHT UPPER ARM MIDLINE AND AT RIGHT ARM G22, SALINE LOCKED, INTACT AND PATENT. DUE MEDS GIVEN. SAFETY MEASURES IN PLACED. CALL LIGHT WITHIN REACH. BED ON LOWEST LOCKED POSITION, SIDE RAILS UP X2. WILL ENDORSE TO NEXT SHIFT FOR VIVIAN.
[2021-02-17] MEDS: TAMSULOSIN 0.4 MG CAP.SR.24H PO SCH (22:12)
[2021-02-17] MEDS: *INSULIN REGULAR(HUMULIN R)HUM 100 UNIT/ML VIAL SQ PRN (22:31)
[2021-02-18] VITALS: BP 115/76
[2021-02-18] MEDS: DILTIAZEM HCL 30 MG TABLET PO SCH ×4 (00:06→17:17)
[2021-02-18] MEDS: IPRATROPIUM NEB FS 0.5 MG/2.5 ML AMPUL.NEB NEB SCH ×4 (01:24→19:39)
[2021-02-18 04:00] VITALS: BP 144/90
[2021-02-18] MEDS ORDERED: APIXABAN 2.5 MG TABLET PO SCH (04:30)
[2021-02-18] MEDS ORDERED: DILTIAZEM HCL 50 MG IV IV ONE (05:00)
[2021-02-18] MEDS ORDERED: DILTIAZEM HCL 25 MG IV ONE (05:22)
--- NOTE | 2021-02-18 07:10 | NUR ---
TELE CLOSING NOTE PATIENT AWAKE IN BED. A/OX3. NO S/S OF DISTRESS, BREATHING SYMMETRICAL. SAFETY MEASURES IN PLACE: BED AT LOWEST LEVEL, RAILS UP X2, CALL XAVIER WITHIN REACH. WILL ENDORSE TO NEXT SHIFT FOR VIVIAN.
[2021-02-18 07:20] LABS: CALCIUM, SERUM 8.7 mg/dL (8.5-10.1); CREATININE 0.7 mg/dL (0.6-1.3); MAGNESIUM 2.3 mg/dL (1.8-2.4); PHOSPHORUS 3.6 mg/dL (2.5-4.9); POTASSIUM 3.9 mmol/L (3.5-5.1)
--- NOTE | 2021-02-18 07:30 | NUR ---
RESEARCH PROJECT COORDINATOR OPENING NOTES RECEIVED PATIENT ON BED RESTING AND A/O X4. ON SIMPLE MASK AT 6LPM. NO SOB NOTED. NOT IN DISTRESS. WITH NO COMPLAINTS OF PAIN AT THIS TIME. WITH IV ACCESS AT RIGHT UPPER ARM MIDLINE G18 SALINE LOCKED, PATENT AND INTACT. ON TELEMONITOR CURRENTLY READING AFIB AT 121BP,M Addendum: 02/18/21 at 0819 by LIAN CEBALLOS RN ERROR
--- NOTE | 2021-02-18 07:30 | NUR ---
WRAPPER CASHIER OPENING NOTES RECEIVED PATIENT ON BED RESTING AND A/O X4. ON SIMPLE MASK AT 6LPM. NO SOB NOTED. NOT IN DISTRESS. WITH NO COMPLAINTS OF PAIN AT THIS TIME. WITH IV ACCESS AT RIGHT UPPER ARM MIDLINE G18 SALINE LOCKED, PATENT AND INTACT. ON TELEMONITOR CURRENTLY READING AFIB AT 121BPM. SAFETY MEASURES IN PLACED. CALL LIGHT WITHIN REACH. BED ON LOWEST LOCKED POSITION, SIDE RAILS UP X2. WILL CONTINUE TO MONITOR.
[2021-02-18 08:00] VITALS: BP 118/80
[2021-02-18] MEDS: FUROSEMIDE 40 MG/4 ML VIAL IV SCH (08:58)
[2021-02-18] MEDS: methylPREDNISolone SOD SUCC 125 MG/2ML VIAL IV SCH (08:59)
[2021-02-18] MEDS: MEMANTINE HCL 5 MG TABLET PO SCH ×2 (08:59→17:02)
[2021-02-18] MEDS: ASPIRIN EC 81 MG TABLET.DR PO SCH (08:59)
[2021-02-18] MEDS: ESCITALOPRAM OXALATE (10 MG) 10 MG TABLET PO SCH (08:59)
[2021-02-18] MEDS: PANTOPRAZOLE 40 MG TABLET.DR PO SCH (09:00)
[2021-02-18] MEDS: NICOTINE PATCH (14MG) 14 MG PATCH.TD24 TD SCH (09:00)
[2021-02-18] MEDS: METOPROLOL TARTRATE 50 MG TABLET PO SCH ×2 (09:00→21:17)
[2021-02-18] MEDS: THIAMINE HCL 100 MG TABLET PO SCH (09:00)
[2021-02-18] MEDS: FINASTERIDE (5 MG) 5 MG TABLET PO SCH (09:00)
[2021-02-18] MEDS: AMLODIPINE BESYLATE 10 MG TABLET PO SCH (09:01)
[2021-02-18] MEDS: BLOOD SUGAR DIAGNOSTIC 1 EACH STRIP IN SCH ×4 (09:17→21:17)
[2021-02-18] MEDS: FLUTICASONE/VILANTEROL 1 EACH BLST.W.DEV IH SCH (09:17)
[2021-02-18 10:18] LABS: ABG BASE EXCESS 4.3 mmol/L; ABG OXYGEN SATURATION 93.3 % (92.0-98.5); ABG PCO2 42.4 mmHg (35.0-45.0); ABG PO2 67.4 mmHg (75.0-100.0); AaDO2 111.2 mmHg; COHb 0.7 % (0.5-1.5); MetHb 0.1 % (0.0-1.5); O2Hb 92.6 % (94.0-97.0); SITE, ABG Right Radial
[2021-02-18 12:35] VITALS: BP 119/75
[2021-02-18] MEDS: INSULIN REGULAR, HUMAN 100 UNIT/ML 3 ML VIAL SQ PRN ×2 (13:06→17:16)
[2021-02-18] MEDS: LEVOFLOXACIN (250MG) 250 MG TABLET PO SCH (14:00)
[2021-02-18 16:00] VITALS: BP 113/80
[2021-02-18] MEDS: risperiDONE 1 MG TABLET PO SCH (17:03)
--- NOTE | 2021-02-18 18:57 | NUR ---
SHOPFITTER CLOSING NOTES PATIENT ON BED RESTING AND A/O X4. ON O2 AT 2LPM VIA NASAL MASK TOLERATING WELL. NO SOB NOTED. NOT IN DISTRESS. WITH NO COMPLAINTS OF PAIN AT THIS TIME. WITH IV ACCESS AT RIGHT UPPER ARM MIDLINE G18 SALINE LOCKED, PATENT AND INTACT. ON TELEMONITOR CURRENTLY READING AFIB AT 98BPM. SAFETY MEASURES IN PLACED. CALL LIGHT WITHIN REACH. BED ON LOWEST LOCKED POSITION, SIDE RAILS UP X2. WILL ENDORSE TO NEX SHIFT FOR VIVIAN.
--- NOTE | 2021-02-18 19:10 | NUR ---
CHEMIST ENZYMES OPENING NOTE PATIENT RECEIVED AWAKE IN BED WATCHING TV. A/OX4. NO S/S OF DISTRESS, BREATHING SYMMETRICAL ON 3L NC. TELE MONITOR AFIB 98. SAFETY MEASURES IN PLACE: BED AT LOWEST POSITION, RAILS UP X2, CALL XAVIER WITHIN REACH. WILL CONTINUE TO MONITOR PATIENT.
[2021-02-18] MEDS: TAMSULOSIN 0.4 MG CAP.SR.24H PO SCH (21:17)
[2021-02-18] MEDS: *INSULIN REGULAR(HUMULIN R)HUM 100 UNIT/ML VIAL SQ PRN (21:22)
[2021-02-19] MEDS: DILTIAZEM HCL 30 MG TABLET PO SCH ×4 (00:17→17:41)
[2021-02-19] MEDS: IPRATROPIUM NEB FS 0.5 MG/2.5 ML AMPUL.NEB NEB SCH ×4 (01:30→20:43)
--- NOTE | 2021-02-19 01:40 | NUR ---
MARINE CARGO INSPECTOR NOTE RT NOTIFIED ME THAT PATIENT REFUSED BREATHING TREATMENT HE STATED HE WANTED TO SLEEP. PATIENT HAS BEEN AWOKEN SEVERAL TIMES DUE TO HIS MEDICATION REGIMEN SCHEDULE. TELE MONITOR SHOWS HE IS STILL STABLE W/ HR STAYING BELOW 120BPM. PATIENT HAS BEEN O/W COMPLIANT THUS FAR. WILL CONTINUE TO CLOSELY MONITOR PATIENT.
[2021-02-19 05:48] LABS: BASOPHILS % (AUTO) 0.3 % (0.0-2.0); EOSINOPHILS % (AUTO) 1.2 % (0.0-6.0); HEMATOCRIT 49 % (39-51); HEMOGLOBIN 16.2 g/dL (13.5-17.5); LYMPHOCYTES # (AUTO) 1.5 K/uL (0.8-4.8); LYMPHOCYTES % (AUTO) 11.1 % (20.0-44.0); MEAN CORPUSCULAR HGB CONC 33 g/dl (31.0-36.0); MEAN CORPUSCULAR VOLUME 96 fL (80-96); MONOCYTES # (AUTO) 0.8 K/uL (0.1-1.30); NEUTROPHILS % (AUTO) 81.4 % (43.0-81.0); PLATELET COUNT (AUTO) 189 K/uL (150-450); RED BLOOD CELL COUNT(AUTO) 5.09 MIL/uL (4.5-6.0); WHITE BLOOD COUNT (AUTO) 13.5 K/uL (4.3-11.0)
[2021-02-19 07:03] LABS: ALBUMIN 2.5 g/dL (3.4-5.0); BILIRUBIN,TOTAL 0.3 mg/dL (0.2-1.0); CALCIUM, SERUM 8.4 mg/dL (8.5-10.1); CREATININE 0.8 mg/dL (0.6-1.3); MAGNESIUM 2.3 mg/dL (1.8-2.4); PHOSPHORUS 3.3 mg/dL (2.5-4.9); POTASSIUM 3.5 mmol/L (3.5-5.1)
[2021-02-19] MEDS: BLOOD SUGAR DIAGNOSTIC 1 EACH STRIP IN SCH ×4 (07:37→22:17)
--- NOTE | 2021-02-19 07:38 | NUR ---
PATIENT ASLEEP IN BED. A/OX3-4. NO S/S OF DISTRESS, BREATHING SYMMETRICAL. TELE MONITOR REPORTS AFIB 107. IV ANANT MIDLINE #18; RH #22 INTACT & PATENT. SAFETY MEASURES IN PLACE: BED DOWN AT LOWEST POSITION, RAILS UP X2, CALL XAVIER WITHIN REACH. WILL ENDORSE TO NEXT SHIFT FOR VIVIAN.
--- NOTE | 2021-02-19 07:50 | NUR ---
SPECIALIST MANAGERS OPENING NOTES RECEIVED Pt ASLEEP IN BED AND EASILY AROUSABLE. A/OX4. NO S/S OF DISTRESS AT THIS TIME, NO COMPLAINTS OF PAIN. BREATHING IS EVEN AND UNLABORED ON ON 3L NC. SAFETY MEASURES ARE IN PLACE: BED IS LOCKED AND IN LOWEST POSITION, SIDE RAILS UP X2, CALL LIGHT AND BEDSIDE TABLE WITHIN REACH. WILL CONTINUE TO MONITOR THROUGHOUT THE SHIFT.
[2021-02-19 08:00] VITALS: BP 111/67
[2021-02-19 08:48] LABS: EOSINOPHILS % (MANUAL) 3 % (0-4); LYMPHOCYTES % (MANUAL) 15 % (16-48); MONOCYTES % (MANUAL) 5 % (0-11.0); NEUTROPHILS % (MANUAL) 77 (42-76)
[2021-02-19] MEDS: THIAMINE HCL 100 MG TABLET PO SCH (09:37)
[2021-02-19] MEDS: NICOTINE PATCH (14MG) 14 MG PATCH.TD24 TD SCH (09:37)
[2021-02-19] MEDS: MEMANTINE HCL 5 MG TABLET PO SCH ×2 (09:38→17:41)
[2021-02-19] MEDS: ESCITALOPRAM OXALATE (10 MG) 10 MG TABLET PO SCH (09:38)
[2021-02-19] MEDS: PANTOPRAZOLE 40 MG TABLET.DR PO SCH (09:38)
[2021-02-19] MEDS: ASPIRIN EC 81 MG TABLET.DR PO SCH (09:38)
[2021-02-19] MEDS: FUROSEMIDE 40 MG TABLET PO SCH (09:39)
[2021-02-19] MEDS: FINASTERIDE (5 MG) 5 MG TABLET PO SCH (09:39)
[2021-02-19] MEDS: METOPROLOL TARTRATE 50 MG TABLET PO SCH ×2 (09:39→21:00)
[2021-02-19] MEDS: AMLODIPINE BESYLATE 10 MG TABLET PO SCH (09:41)
[2021-02-19] MEDS: methylPREDNISolone SOD SUCC 125 MG/2ML VIAL IV SCH (09:49)
[2021-02-19] MEDS: FLUTICASONE/VILANTEROL 1 EACH BLST.W.DEV IH SCH (10:24)
[2021-02-19 12:00] VITALS: BP 123/94
[2021-02-19] MEDS: INSULIN REGULAR, HUMAN 100 UNIT/ML 3 ML VIAL SQ PRN ×2 (12:30→18:47)
[2021-02-19] MEDS ORDERED: predniSONE 10 MG TABLET PO SCH (13:00)
[2021-02-19 16:00] VITALS: BP 120/70
[2021-02-19] MEDS: risperiDONE 1 MG TABLET PO SCH (17:41)
--- NOTE | 2021-02-19 19:29 | NUR ---
ANIMAL CARE ATTENDANT CLOSING NOTES Pt IS IN BED RESTING AND A/O X4. ON O2 AT 3LPM VIA NASAL CANNULA AND TOLERATING WELL. NO SOB NOTED AT THIS TIME. NO SIGS OF DISTRESS NOTES. NO COMPLAINTS OF PAIN AT THIS TIME. ALL NEEDS MET. Pt HAS IV ACCESS AT RIGHT UPPER ARM MIDLINE G18 SALINE LOCKED, PATENT AND INTACT. IV ACCESS ON R HAND SALINE LOCKED IS ALSO PATENT AND INTACT. SAFETY MEASURES IN PLACED. CALL LIGHT AND BEDSIDE TABLE WITHIN REACH. BED LOCKED AND IN LOWEST POSITION, SIDE RAILS UP X2. WILL ENDORSE TO ONCOMING SHIFT.
[2021-02-19 20:00] VITALS: BP 109/72
--- NOTE | 2021-02-19 20:05 | NUR ---
CABLE BRAIDER OPENING NOTES Pt IS IN BED RESTING AND A/O X4. ON O2 AT 3LPM VIA NASAL CANNULA AND TOLERATING WELL. NO SOB NOTED AT THIS TIME. NO SIGS OF DISTRESS NOTES. NO COMPLAINTS OF PAIN AT THIS TIME. ALL NEEDS MET. Pt HAS IV ACCESS AT RIGHT UPPER ARM MIDLINE G18 SALINE LOCKED, PATENT AND INTACT. IV ACCESS ON R HAND SALINE LOCKED IS ALSO PATENT AND INTACT. SAFETY MEASURES IN PLACED. CALL LIGHT AND BEDSIDE TABLE WITHIN REACH. BED LOCKED AND IN LOWEST POSITION, SIDE RAILS UP X2. WILL CONTINUE TO MONITOR.
[2021-02-19] MEDS: TAMSULOSIN 0.4 MG CAP.SR.24H PO SCH (22:17)
[2021-02-19] MEDS: *INSULIN REGULAR(HUMULIN R)HUM 100 UNIT/ML VIAL SQ PRN (22:21)
[2021-02-20] VITALS: BP 103/61
[2021-02-20] MEDS: IPRATROPIUM NEB FS 0.5 MG/2.5 ML AMPUL.NEB NEB SCH ×4 (01:30→20:13)
[2021-02-20 04:00] VITALS: BP 140/74
[2021-02-20] MEDS: BLOOD SUGAR DIAGNOSTIC 1 EACH STRIP IN SCH ×4 (06:40→21:32)
[2021-02-20] MEDS: DILTIAZEM HCL 30 MG TABLET PO SCH ×5 (06:40→23:45)
[2021-02-20] MEDS: INSULIN REGULAR, HUMAN 100 UNIT/ML 3 ML VIAL SQ PRN ×4 (06:51→21:37)
[2021-02-20 06:52] LABS: EOSINOPHILS % (AUTO) 0.8 % (0.0-6.0); HEMATOCRIT 47 % (39-51); LYMPHOCYTES # (AUTO) 1.7 K/uL (0.8-4.8); LYMPHOCYTES % (AUTO) 16.2 % (20.0-44.0); MEAN CORPUSCULAR HGB CONC 34 g/dl (31.0-36.0); MEAN CORPUSCULAR VOLUME 96 fL (80-96); MONOCYTES # (AUTO) 0.8 K/uL (0.1-1.30); MONOCYTES % (AUTO) 7.8 % (2.0-12.0); NEUTROPHILS # (AUTO) 7.8 K/uL (1.8-8.9); NEUTROPHILS % (AUTO) 75.2 % (43.0-81.0); PLATELET COUNT (AUTO) 194 K/uL (150-450); RED BLOOD CELL COUNT(AUTO) 4.94 MIL/uL (4.5-6.0); WHITE BLOOD COUNT (AUTO) 10.4 K/uL (4.3-11.0)
--- NOTE | 2021-02-20 07:04 | NUR ---
CLAIM TRAINEE CLOSING NOTES Pt IS IN BED RESTING AND A/O X4. ON O2 AT 3LPM VIA NASAL CANNULA AND TOLERATING WELL. NO SOB NOTED AT THIS TIME. NO SIGS OF DISTRESS NOTES. NO COMPLAINTS OF PAIN AT THIS TIME. ALL NEEDS MET. Pt HAS IV ACCESS AT RIGHT UPPER ARM MIDLINE G18 SALINE LOCKED, PATENT AND INTACT. IV ACCESS ON R HAND SALINE LOCKED IS ALSO PATENT AND INTACT. SAFETY MEASURES IN PLACED. CALL LIGHT AND BEDSIDE TABLE WITHIN REACH. BED LOCKED AND IN LOWEST POSITION, SIDE RAILS UP X2. WILL ENDORSE CARE TO DAY SHIFT NURSE.
[2021-02-20 07:42] LABS: ALBUMIN 2.5 g/dL (3.4-5.0); BILIRUBIN,TOTAL 0.4 mg/dL (0.2-1.0); CALCIUM, SERUM 8.1 mg/dL (8.5-10.1); CREATININE 0.9 mg/dL (0.6-1.3); MAGNESIUM 2.2 mg/dL (1.8-2.4); POTASSIUM 3.5 mmol/L (3.5-5.1); TOTAL PROTEIN, SERUM 5.9 g/dL (6.4-8.2)
--- NOTE | 2021-02-20 07:50 | NUR ---
RN OPENING NOTES PATIENT IS AWAKE IN BED RESTING, A/O X4. NO S/S OF PAIN NOTED AT THIS TIME. ON 3L OXYGEN VIA NC, NO DISTRESS OR SHORTNESS OF BREATH NOTED. IV ACCESS R HAND #22G, ANANT MIDLINE, INTACT AND PATENT, FLUSHING WELL. PATIENT HAVE AN EXTERNAL MUSHROOM GROWTH MEDIA MIXER WITH CURRENT READING OF A-FIB CONTROL, NO CARDIAC DISTRESS NOTED. FALL AND SAFETY MEASURES IN PLACE, BED ALARM ON, BED IN LOW AND LOCK POSITION, CALL LIGHT AND TABLE WITHIN EASY REACH, SIDE RAIL UP X2. WILL CONTINUE TO MONITOR.
[2021-02-20 08:44] VITALS: BP 124/71
[2021-02-20] MEDS ORDERED: DIGOXIN INJ 0.5 MG/2 ML AMPUL IV ONE ×2 (09:00→15:00)
[2021-02-20] MEDS: predniSONE 5 MG TABLET PO SCH (09:23)
[2021-02-20] MEDS: METOPROLOL TARTRATE 50 MG TABLET PO SCH ×2 (09:24→21:24)
[2021-02-20] MEDS: PANTOPRAZOLE 40 MG TABLET.DR PO SCH (09:24)
[2021-02-20] MEDS: FUROSEMIDE 40 MG TABLET PO SCH (09:24)
[2021-02-20] MEDS: THIAMINE HCL 100 MG TABLET PO SCH (09:24)
[2021-02-20] MEDS: FINASTERIDE (5 MG) 5 MG TABLET PO SCH (09:24)
[2021-02-20] MEDS: ASPIRIN EC 81 MG TABLET.DR PO SCH (09:25)
[2021-02-20] MEDS: AMLODIPINE BESYLATE 10 MG TABLET PO SCH (09:25)
[2021-02-20] MEDS: MEMANTINE HCL 5 MG TABLET PO SCH ×2 (09:25→17:19)
[2021-02-20] MEDS: ESCITALOPRAM OXALATE (10 MG) 10 MG TABLET PO SCH (09:25)
[2021-02-20] MEDS: NICOTINE PATCH (14MG) 14 MG PATCH.TD24 TD SCH (09:25)
[2021-02-20] MEDS: APIXABAN 5 MG TABLET PO SCH ×2 (09:28→17:16)
[2021-02-20] MEDS: FLUTICASONE/VILANTEROL 1 EACH BLST.W.DEV IH SCH (09:39)
[2021-02-20 12:05] VITALS: BP 112/92
[2021-02-20 16:21] VITALS: BP 103/75
[2021-02-20] MEDS: risperiDONE 1 MG TABLET PO SCH (17:19)
--- NOTE | 2021-02-20 19:42 | NUR ---
RN CLOSING NOTES PATIENT IS AWAKE IN BED RESTING, A/O X4. NO S/S OF PAIN NOTED AT THIS TIME. ON 3L OXYGEN VIA NC, NO DISTRESS OR SHORTNESS OF BREATH NOTED. IV ACCESS R HAND #22G, ANANT MIDLINE, INTACT AND PATENT, FLUSHING WELL. PATIENT HAVE AN EXTERNAL RUBBER BLOCK LAYER WITH CURRENT READING OF A-FIB CONTROL, NO CARDIAC DISTRESS NOTED. FALL AND SAFETY MEASURES IN PLACE, BED ALARM ON, BED IN LOW AND LOCK POSITION, CALL LIGHT AND TABLE WITHIN EASY REACH, SIDE RAIL UP X2. WILL ENDORSE TO DISH PERSON.
[2021-02-20 20:00] VITALS: BP 113/58
[2021-02-20 20:29] LABS: BAND % (MANUAL) 3 % (0.0-5.0); LYMPHOCYTES % (MANUAL) 15 % (16-48); MONOCYTES % (MANUAL) 4 % (0-11.0); NEUTROPHILS % (MANUAL) 78 (42-76)
[2021-02-20] MEDS: TAMSULOSIN 0.4 MG CAP.SR.24H PO SCH (21:24)
--- NOTE | 2021-02-20 23:36 | NUR ---
Receiving Notes: received in bed alert and orientated X4 smiling and waving to me when i introduced myself denies pain or SOB wearing 02 at 3 liters
[2021-02-21] VITALS: BP 106/71
[2021-02-21] MEDS: IPRATROPIUM NEB FS 0.5 MG/2.5 ML AMPUL.NEB NEB SCH ×4 (01:09→20:09)
[2021-02-21 04:00] VITALS: BP 104/55
--- NOTE | 2021-02-21 04:29 | NUR ---
CLOSING NOTES: alert and orientated x4 cooperative verbalizes his needs uses the urinal voided 400 ml suyapa in color no sob thtis 12 hours 02 sats 96% on 3 liters he wears the N/C PRN Nicotene patch on the left deltoid Patient on Cardizen PO and Lopressor noted after being given Blood Pressure dropped in the low syst 100's and the heart rate dropped and fluxuated 39 - 64 beats a minute. will hold the Cardizem PO dose this AM
[2021-02-21] MEDS: DILTIAZEM HCL 30 MG TABLET PO SCH ×3 (06:15→18:00)
[2021-02-21] MEDS: BLOOD SUGAR DIAGNOSTIC 1 EACH STRIP IN SCH ×4 (06:24→22:15)
[2021-02-21 07:15] LABS: BASOPHILS % (AUTO) 0.1 % (0.0-2.0); EOSINOPHILS % (AUTO) 1.4 % (0.0-6.0); HEMATOCRIT 45 % (39-51); HEMOGLOBIN 14.7 g/dL (13.5-17.5); LYMPHOCYTES # (AUTO) 2.4 K/uL (0.8-4.8); LYMPHOCYTES % (AUTO) 23.5 % (20.0-44.0); MEAN CORPUSCULAR HGB CONC 33 g/dl (31.0-36.0); MEAN CORPUSCULAR VOLUME 96 fL (80-96); MONOCYTES # (AUTO) 0.9 K/uL (0.1-1.30); MONOCYTES % (AUTO) 8.4 % (2.0-12.0); NEUTROPHILS # (AUTO) 6.8 K/uL (1.8-8.9); NEUTROPHILS % (AUTO) 66.6 % (43.0-81.0); PLATELET COUNT (AUTO) 203 K/uL (150-450); RED BLOOD CELL COUNT(AUTO) 4.65 MIL/uL (4.5-6.0); WHITE BLOOD COUNT (AUTO) 10.2 K/uL (4.3-11.0)
--- NOTE | 2021-02-21 07:31 | NUR ---
RN OPENING NOTE-PT ASLEEP, EASILY AWAKENED, A/O TO PERSON PLACE PURPOSE. NO S/S OF PAIN NOTED AT THIS TIME. ON 3L OXYGEN VIA NC, NO DISTRESS OR SHORTNESS OF BREATH NOTED. IV ACCESS R HAND #22G, ANANT MIDLINE, PATIENT W TELE MONITOR WITH CURRENT READING OF A-FIB CONTROL -68, NO CARDIAC DISTRESS NOTED. FALL AND SAFETY MEASURES IN PLACE, BED ALARM ON, BED IN LOW AND LOCK POSITION, CALL LIGHT AND TABLE WITHIN EASY REACH, SIDE RAIL UP X2. WILL CONTINUE TO MONITOR.
[2021-02-21 07:49] LABS: ALBUMIN 2.4 g/dL (3.4-5.0); BILIRUBIN,TOTAL 0.5 mg/dL (0.2-1.0); CALCIUM, SERUM 7.9 mg/dL (8.5-10.1); CREATININE 0.8 mg/dL (0.6-1.3); MAGNESIUM 2.1 mg/dL (1.8-2.4); PHOSPHORUS 2.6 mg/dL (2.5-4.9); POTASSIUM 3.6 mmol/L (3.5-5.1); TOTAL PROTEIN, SERUM 5.4 g/dL (6.4-8.2)
--- NOTE | 2021-02-21 07:58 | NUR ---
OXYGEN FLOW DECREASED TO 2 LPM VIA NASAL CANNULA DUE TO 96% SPO2. Addendum: 02/21/21 at 0759 by SVETLANA CONTEH RT Amended: Links added.
[2021-02-21] MEDS: METOPROLOL TARTRATE 50 MG TABLET PO SCH ×2 (09:00→21:00)
[2021-02-21] MEDS: AMLODIPINE BESYLATE 10 MG TABLET PO SCH (09:00)
[2021-02-21] MEDS: PANTOPRAZOLE 40 MG TABLET.DR PO SCH (09:53)
[2021-02-21] MEDS: NICOTINE PATCH (14MG) 14 MG PATCH.TD24 TD SCH (09:53)
[2021-02-21] MEDS: FUROSEMIDE 40 MG TABLET PO SCH (09:53)
[2021-02-21] MEDS: MEMANTINE HCL 5 MG TABLET PO SCH ×2 (09:54→16:34)
[2021-02-21] MEDS: ESCITALOPRAM OXALATE (10 MG) 10 MG TABLET PO SCH (09:54)
[2021-02-21] MEDS: APIXABAN 5 MG TABLET PO SCH ×2 (09:54→16:34)
[2021-02-21] MEDS: THIAMINE HCL 100 MG TABLET PO SCH (09:54)
[2021-02-21] MEDS: ASPIRIN EC 81 MG TABLET.DR PO SCH (09:54)
[2021-02-21] MEDS: FINASTERIDE (5 MG) 5 MG TABLET PO SCH (09:54)
[2021-02-21] MEDS: predniSONE 5 MG TABLET PO SCH (09:55)
[2021-02-21] MEDS: FLUTICASONE/VILANTEROL 1 EACH BLST.W.DEV IH SCH (10:06)
[2021-02-21] MEDS: INSULIN REGULAR, HUMAN 100 UNIT/ML 3 ML VIAL SQ PRN ×2 (11:54→17:08)
[2021-02-21] MEDS: DIGOXIN 0.125 MG TABLET PO SCH (12:42)
[2021-02-21] MEDS: risperiDONE 1 MG TABLET PO SCH (18:12)
--- NOTE | 2021-02-21 18:40 | NUR ---
RN CLOSING NOTE- PT ALERT IN BED, NEEDS ATTENDED ORIENTED TO PERSON PLACE PURPOSE. NO ACUTE DISTRESS. PO INTAKE GOOD, TELE MONITOR AFIB AT 94, USING URINAL. SIDE RAILS UP, BED LOCKED, JAYLAN LIGHT IN REACH. MONITOR/ ASSIST
--- NOTE | 2021-02-21 19:44 | NUR ---
SCREEN PRINTING INSPECTOR OPENING RECEIVED PATIENT IN BED. A/OX4.NO S/S OF APPARENT DISTRESS ON ROOM AIR. NO C/O PAIN AT THIS TIME. NO FLUIDS RUNNING AT THIS TIME. R.UA MIDLINE FLUSHED AND PATENT. TELE MONITOR READING A-FIB 99. SAFETY IN PLACE. PATIENT HAS NO NEEDS AT THIS TIME. WILL CONTINUE WITH CARE PLAN.
[2021-02-21 20:00] VITALS: BP 97/66
[2021-02-21] MEDS: TAMSULOSIN 0.4 MG CAP.SR.24H PO SCH (21:23)
--- NOTE | 2021-02-21 21:33 | NUR ---
INLAYER NOTE SCHEDULED 2100 DOSE OF METOPROLOL NON-ADMIN: BP 97/66. WILL MONITOR PATIENT.
--- NOTE | 2021-02-21 21:41 | NUR ---
RN NOTE X2 50MG METOPROLOL TABS (UNOPENED) RETURNED IN OMNICELL AT THIS TIME.
[2021-02-21] MEDS: *INSULIN REGULAR(HUMULIN R)HUM 100 UNIT/ML VIAL SQ PRN (22:18)
[2021-02-22] VITALS: BP 98/52
[2021-02-22] MEDS: DILTIAZEM HCL 30 MG TABLET PO SCH ×5 (00:26→23:46)
[2021-02-22] MEDS: IPRATROPIUM NEB FS 0.5 MG/2.5 ML AMPUL.NEB NEB SCH ×4 (01:46→19:11)
[2021-02-22 04:00] VITALS: BP 114/65
[2021-02-22 06:46] LABS: BASOPHILS % (AUTO) 0.1 % (0.0-2.0); EOSINOPHILS % (AUTO) 0.7 % (0.0-6.0); HEMATOCRIT 48 % (39-51); HEMOGLOBIN 15.9 g/dL (13.5-17.5); LYMPHOCYTES # (AUTO) 2.3 K/uL (0.8-4.8); LYMPHOCYTES % (AUTO) 25.7 % (20.0-44.0); MEAN CORPUSCULAR HGB CONC 33 g/dl (31.0-36.0); MEAN CORPUSCULAR VOLUME 97 fL (80-96); MONOCYTES # (AUTO) 0.7 K/uL (0.1-1.30); NEUTROPHILS # (AUTO) 5.8 K/uL (1.8-8.9); NEUTROPHILS % (AUTO) 65.5 % (43.0-81.0); PLATELET COUNT (AUTO) 220 K/uL (150-450); RED BLOOD CELL COUNT(AUTO) 4.99 MIL/uL (4.5-6.0); WHITE BLOOD COUNT (AUTO) 8.9 K/uL (4.3-11.0)
[2021-02-22] MEDS: BLOOD SUGAR DIAGNOSTIC 1 EACH STRIP IN SCH ×4 (07:08→22:42)
[2021-02-22] MEDS: INSULIN REGULAR, HUMAN 100 UNIT/ML 3 ML VIAL SQ PRN ×3 (07:09→17:09)
--- NOTE | 2021-02-22 07:13 | NUR ---
MS RN NOTE BLOOD SUGAR 114. NO COVERAGE NEEDED.
--- NOTE | 2021-02-22 07:30 | NUR ---
RN OPENING NOTE-PT ASLEEP, EASILY AWAKENED, A/O TO PERSON PLACE PURPOSE. NO S/S OF PAIN NOTED AT THIS TIME. ON 3L OXYGEN VIA NC, NO DISTRESS OR SHORTNESS OF BREATH NOTED. IV ACCESS R HAND #22G, ANANT MIDLINE, PATIENT W TELE MONITOR WITH CURRENT READING OF A-FIB AT 78, NO CARDIAC DISTRESS NOTED. FALL AND SAFETY MEASURES IN PLACE, BED ALARM ON, BED IN LOW AND LOCK POSITION, CALL LIGHT AND TABLE WITHIN EASY REACH, SIDE RAIL UP X2. WILL CONTINUE TO MONITOR.
--- NOTE | 2021-02-22 07:30 | NUR ---
REPORT GIVEN TO JOHNSON FOR CONTINUITY OF CARE.
[2021-02-22 07:48] LABS: ALBUMIN 2.7 g/dL (3.4-5.0); BILIRUBIN,TOTAL 0.4 mg/dL (0.2-1.0); CALCIUM, SERUM 8.2 mg/dL (8.5-10.1); CREATININE 0.9 mg/dL (0.6-1.3); MAGNESIUM 2.2 mg/dL (1.8-2.4); POTASSIUM 3.3 mmol/L (3.5-5.1); TOTAL PROTEIN, SERUM 6.1 g/dL (6.4-8.2)
[2021-02-22 08:18] VITALS: BP 113/57
[2021-02-22] MEDS: THIAMINE HCL 100 MG TABLET PO SCH (08:45)
[2021-02-22] MEDS: ESCITALOPRAM OXALATE (10 MG) 10 MG TABLET PO SCH (08:45)
[2021-02-22] MEDS: FINASTERIDE (5 MG) 5 MG TABLET PO SCH (08:45)
[2021-02-22] MEDS: NICOTINE PATCH (14MG) 14 MG PATCH.TD24 TD SCH (08:46)
[2021-02-22] MEDS: ASPIRIN EC 81 MG TABLET.DR PO SCH (08:46)
[2021-02-22] MEDS: FUROSEMIDE 40 MG TABLET PO SCH (08:46)
[2021-02-22] MEDS: predniSONE 5 MG TABLET PO SCH (08:46)
[2021-02-22] MEDS: APIXABAN 5 MG TABLET PO SCH ×2 (08:46→16:44)
[2021-02-22] MEDS: MEMANTINE HCL 5 MG TABLET PO SCH ×2 (08:46→16:44)
[2021-02-22] MEDS: PANTOPRAZOLE 40 MG TABLET.DR PO SCH (08:46)
[2021-02-22] MEDS: AMLODIPINE BESYLATE 10 MG TABLET PO SCH (08:47)
[2021-02-22] MEDS: METOPROLOL TARTRATE 50 MG TABLET PO SCH ×2 (08:47→22:00)
[2021-02-22] MEDS: FLUTICASONE/VILANTEROL 1 EACH BLST.W.DEV IH SCH (08:50)
[2021-02-22] MEDS ORDERED: POTASSIUM CHLORIDE 20 MEQ TAB.PRT.SR PO SCH (10:00)
[2021-02-22 12:11] VITALS: BP 105/66
[2021-02-22] MEDS: DIGOXIN 0.125 MG TABLET PO SCH (12:50)
[2021-02-22 16:32] VITALS: BP 119/68
[2021-02-22] MEDS: risperiDONE 1 MG TABLET PO SCH (17:19)
--- NOTE | 2021-02-22 18:35 | NUR ---
RN NOTE- DR JENKINS CALLED, ORDERED PT KEPT NPO AFTER MN FOR AM CARDIOVERSION
--- NOTE | 2021-02-22 18:38 | NUR ---
RN CLOSING NOTE- PT RESTING QUIETLY, EASILY AWAKENED, A/O TO PERSON PLACE PURPOSE. NO S/S OF PAIN NOTED AT THIS TIME. ON 3L OXYGEN VIA NC, NO DISTRESS OR SHORTNESS OF BREATH NOTED. IV ACCESS ANANT MIDLINE, PATIENT W TELE MONITOR WITH CURRENT READING OF A-FIB AT 90, NO CARDIAC DISTRESS NOTED. FALL AND SAFETY MEASURES IN PLACE, BED ALARM ON, BED IN LOW AND LOCK POSITION, CALL LIGHT AND TABLE WITHIN EASY REACH, SIDE RAIL UP X2. WILL CONTINUE TO MONITOR. NPO AFTER MN FOR CARDIOVERSION IN AM.
--- NOTE | 2021-02-22 19:15 | NUR ---
COUNTY LIBRARY DIRECTOR OPENING NOTES RECEIVED PATIENT LAYING AWAKE IN BED. A/OX4. PATIENT WITH REGULAR AND UNLABORED BREATHING ON 3LPM VIA NASAL CANULA TOLERATED WELL. NO SIGNS AND SYMPTOMS OF DISTRESS NOTED AT THIS TIME. NO COMPLAINS OF PAIN OR DISCOMFORT AT THIS TIME. IV ACCESS ANANT MIDLINE SL. IV ACCESS PATENT AND INTACT. SAFETY PRECAUTIONS ENFORCED WITH BED LOCKED AND AT LOWEST POSITION. SIDERAILS UP X2. CALL LIGHT WITHIN REACH AT ALL TIMES. WILL CONTINUE TO MONITOR PATIENT.
--- NOTE | 2021-02-22 19:35 | NUR ---
RT NOTE FOUND PT ON 5LPM NC. TX GIVEN. NO SOB OR INCREASED WOB. NO S/S OF ACUTE RESPIRATORY DISTRESS. WILL CONTINUE TO MONITOR T/O SHIFT.
[2021-02-22 20:00] VITALS: BP 117/67
[2021-02-22] MEDS: TAMSULOSIN 0.4 MG CAP.SR.24H PO SCH (22:00)
[2021-02-22] MEDS: *INSULIN REGULAR(HUMULIN R)HUM 100 UNIT/ML VIAL SQ PRN (23:00)
[2021-02-23] VITALS (14 sets, daily range): BP systolic 89–126; BP diastolic 60–84
[2021-02-23] MEDS: IPRATROPIUM NEB FS 0.5 MG/2.5 ML AMPUL.NEB NEB SCH ×4 (00:56→20:17)
[2021-02-23] MEDS: DILTIAZEM HCL 30 MG TABLET PO SCH (06:00)
[2021-02-23] MEDS: BLOOD SUGAR DIAGNOSTIC 1 EACH STRIP IN SCH ×4 (06:41→22:22)
--- NOTE | 2021-02-23 07:30 | NUR ---
SHRIMP PEELING MACHINE OPERATOR OPENING NOTES RECEIVED PATIENT RESTING ON BED AND A/O X 4. ON O2 AT 3LPM VIA NASAL CANNULA TOLERATING WELL. NO SOB NOTED. NOT IN DISTRESS. WITH NO COMPLAINTS OF PAIN OR DISCOMFORT AT THIS TIME. WITH IV ACCESS AT RIGHT UPPER ARM MIDLINE SALINE LOCKED, PATENT AND INTACT. ON TELE MONITOR CURRENTLY READING AFIB AT 88BPM. WILL TRANSFER PATIENT TO ICU FOR CARDIOVERSION TRANSESOPHAGEAL ECHOCARDIOGRAM.
[2021-02-23 07:40] LABS: ALBUMIN 2.5 g/dL (3.4-5.0); BILIRUBIN,TOTAL 0.4 mg/dL (0.2-1.0); CALCIUM, SERUM 8.4 mg/dL (8.5-10.1); CREATININE 0.9 mg/dL (0.6-1.3); PHOSPHORUS 3.9 mg/dL (2.5-4.9); POTASSIUM 3.4 mmol/L (3.5-5.1); TOTAL PROTEIN, SERUM 5.7 g/dL (6.4-8.2)
--- NOTE | 2021-02-23 07:40 | NUR ---
RN NOTES PATIENT TRANSFERRED TO ICU FOR CARDIOVERSION TRANSESOPHAGEAL ECHOCARDIOGRAM. ENDORSED TO NANCY SHEIKH.
--- NOTE | 2021-02-23 07:49 | NUR ---
BORDER GUARD CLOSING NOTES PATIENT STILL LAYING AWAKE IN BED. A/OX4. PATIENT WITH REGULAR AND UNLABORED BREATHING ON 3LPM VIA NASAL CANULA TOLERATED WELL. NO SIGNS AND SYMPTOMS OF DISTRESS NOTED AT THIS TIME. NO COMPLAINS OF PAIN OR DISCOMFORT AT THIS TIME. IV ACCESS ANANT MIDLINE SL. IV ACCESS PATENT AND INTACT. SAFETY PRECAUTIONS ENFORCED WITH BED LOCKED AND AT LOWEST POSITION. SIDERAILS UP X2. CALL LIGHT WITHIN REACH AT ALL TIMES. WILL ENDORSE CONTINUITY OF CARE TO DAY SHIFT NURSE.
[2021-02-23] MEDS ORDERED: KETAMINE HCL (500MG/10ML) 50 MG/ML VIAL ONE (07:58)
--- NOTE | 2021-02-23 08:00 | NUR ---
ICU/RN PT TRANSFERRED TO ICU.FROM TELE UNIT FOR ROBY/CARDIOVERSION.PT IS AWAKE ,ALERT.ON 3L N/C SAT O2-95%.V/S STABLE AFEBRILE.CONTROL A-FIB 70-80M BPM ON MONITOR.PT IS NPO.IV-HL.CONTINENT USE URINAL. CONTINUE MONITORING. WAITING FOR MD. WAITING FOR AM LABS RESULT.
[2021-02-23 08:10] LABS: BASOPHILS % (AUTO) 0.1 % (0.0-2.0); HEMATOCRIT 43 % (39-51); HEMOGLOBIN 14.4 g/dL (13.5-17.5); LYMPHOCYTES # (AUTO) 3.2 K/uL (0.8-4.8); LYMPHOCYTES % (AUTO) 28.5 % (20.0-44.0); MEAN CORPUSCULAR HGB CONC 33 g/dl (31.0-36.0); MEAN CORPUSCULAR VOLUME 96 fL (80-96); MONOCYTES # (AUTO) 0.9 K/uL (0.1-1.30); MONOCYTES % (AUTO) 7.9 % (2.0-12.0); NEUTROPHILS # (AUTO) 7.1 K/uL (1.8-8.9); NEUTROPHILS % (AUTO) 62.5 % (43.0-81.0); PLATELET COUNT (AUTO) 235 K/uL (150-450); RED BLOOD CELL COUNT(AUTO) 4.52 MIL/uL (4.5-6.0); WHITE BLOOD COUNT (AUTO) 11.3 K/uL (4.3-11.0)
[2021-02-23] MEDS: ESCITALOPRAM OXALATE (10 MG) 10 MG TABLET PO SCH (08:53)
[2021-02-23] MEDS: NICOTINE PATCH (14MG) 14 MG PATCH.TD24 TD SCH (08:53)
[2021-02-23] MEDS: APIXABAN 5 MG TABLET PO SCH ×2 (08:54→17:22)
[2021-02-23] MEDS: METOPROLOL TARTRATE 50 MG TABLET PO SCH ×2 (08:55→21:00)
[2021-02-23] MEDS: ASPIRIN EC 81 MG TABLET.DR PO SCH (08:55)
[2021-02-23] MEDS: AMLODIPINE BESYLATE 10 MG TABLET PO SCH (08:55)
[2021-02-23] MEDS: PANTOPRAZOLE 40 MG TABLET.DR PO SCH (08:55)
[2021-02-23] MEDS: THIAMINE HCL 100 MG TABLET PO SCH (08:56)
[2021-02-23] MEDS: MEMANTINE HCL 5 MG TABLET PO SCH ×2 (08:56→17:22)
[2021-02-23] MEDS: FUROSEMIDE 40 MG TABLET PO SCH (08:56)
[2021-02-23] MEDS: FINASTERIDE (5 MG) 5 MG TABLET PO SCH (08:57)
[2021-02-23] MEDS: FLUTICASONE/VILANTEROL 1 EACH BLST.W.DEV IH SCH (08:58)
[2021-02-23] MEDS: POTASSIUM CL. PREMIX PERIPHER. 50 ML IV SCH ×2 (11:06→12:06)
[2021-02-23] MEDS ORDERED: AMIODARONE 150 MG in IV D5W 100 ML IV ONE (12:00)
--- NOTE | 2021-02-23 12:00 | NUR ---
MAINT MECHANIC ROBY/CARDIOVERSION DELAYED TO NOW BECAUSE OF MALFUNCTIONING EQUIPMENT. ROBY/CARDIOVERSION COMPLETED WITH PT STILL IN AFIB. AMIODARONE ORDERED, KESHA D/C'D BY DR JENKINS.
[2021-02-23] MEDS: AMIODARONE 450 MG in IV D5W 241 ML IV PRN ×2 (12:59→21:29)
[2021-02-23] MEDS: DEXAMETHASONE SOD PHOSPHATE 10 MG/ML VIAL IV SCH (13:24)
--- NOTE | 2021-02-23 13:30 | NUR ---
TUMBLER PLATER PT C/O DYSPNEA. O2 CHANGED TO 10L SIMPLE MASK. RESP TX COMPLETED, PT FELT SLIGHTLY BETTER BUT SAT 90%. DR SERRA EVALUATED PT. DECADRON ORDERED AND GIVEN. CXR COMPLETED AND REVIEWED BY DR SERRA.
[2021-02-23] MEDS: risperiDONE 1 MG TABLET PO SCH (17:22)
[2021-02-23] MEDS: INSULIN REGULAR, HUMAN 100 UNIT/ML 3 ML VIAL SQ PRN (17:23)
--- NOTE | 2021-02-23 18:10 | NUR ---
RN NOTE PT RECEIVED FROM ICU VIA ACLS PROTOCOL FOR CONTINUE OF CARE
--- NOTE | 2021-02-23 18:56 | NUR ---
RN CLOSING NOTES PATIENT LAYING AWAKE IN BED. A/OX4. PATIENT WITH REGULAR AND UNLABORED BREATHING ON SIMPLE MASK 10L TOLERATING WELL. NO SIGNS AND SYMPTOMS OF DISTRESS NOTED AT THIS TIME. NO COMPLAINS OF PAIN OR DISCOMFORT AT THIS TIME. IV ACCESS ANANT MIDLINE PATENT AND INTACT RUNNING AMIODARONE DRIP, SAFETY PRECAUTIONS ENFORCED WITH BED LOCKED AND AT LOWEST POSITION. SIDERAILS UP X2. CALL LIGHT WITHIN REACH AT ALL TIMES. WILL ENDORSE CONTINUITY OF CARE TO BRIM GREASER OPERATORNAVY DIVER
--- NOTE | 2021-02-23 19:07 | NUR ---
1907 REPORT RECEIVED FROM NANCY BAKER FOR TRANSFER OF CARE.
--- NOTE | 2021-02-23 19:10 | NUR ---
1909 AMIODARONE DRIP DECREASED TO 0.5MG/MIN PER PROTOCOL. INFUSING TO RIGHT UPPER ARM MIDLINE. NO SIGNS OF INFILTRATION NOTED. PT REMAINS IN UNCONTROLLED A-FIB HR 100S. WILL CONT. TO MONITOR.
--- NOTE | 2021-02-23 19:15 | NUR ---
1915 RECEIVED PATIENT SLEEPING BUT WAKES UP EASILY AND VERBALLY RESPONSIVE. ON O2 SIMPLE MASK AT 10 LITERS. O2 SATURATION 95%. NO COMPLAIN OF SOB OR DIFFICULTY BREATHING. NO COMPLAIN OF CHEST PAIN WHEN ASKED. AMIODARONE DRIP RUNNING ORDERED. RIGHT UPPER ARM MIDLINE INTACT AND PATENT. ABLE TO ASSIST WITH TURNING. REPOSITIONED FOR COMFORT. CALL LIGHT PLACED WITHIN REACH.
[2021-02-23] MEDS: TAMSULOSIN 0.4 MG CAP.SR.24H PO SCH (22:00)
--- NOTE | 2021-02-23 22:20 | NUR ---
2220 REGULAR INSULIN HELD DUE TO PATIENT IS NPO. NO SIGNS OF HYPO HYPER GLYCEMIA NOTED.
[2021-02-23] MEDS: *INSULIN REGULAR(HUMULIN R)HUM 100 UNIT/ML VIAL SQ PRN (22:23)
--- NOTE | 2021-02-23 23:02 | NUR ---
2200 HR IN THE 90S TO 100S AFIB. AMIODARONE AT 0.5MG/MIN. PATIENT CONT. TO DENY CHEST PAIN OR ANY DISCOMFORT WHEN ASKED. ALL NEEDS ATTENDED AT THIS TIME.
[2021-02-24] VITALS (27 sets, daily range): BP systolic 75–139; BP diastolic 32–110
--- NOTE | 2021-02-24 | NUR ---
0000 SLEEPING ON HIS SIDE. NO SIGNS OF DISTRESS NOTED. O2 SATURATION AT 97% ON SIMPLE MASK AT 10L. UNABLE TO TITRATE O2 DOWN PATIENT DESATURATES EASILY. AMIODARONE DRIP RUNNING AT 0.5MG/MIN ORDERED. PATIENT IN CONTROLLED AFIB NOW HR IN THE 80S-90S. WILL CONT. TO MONITOR.
[2021-02-24] MEDS: IPRATROPIUM NEB FS 0.5 MG/2.5 ML AMPUL.NEB NEB SCH ×4 (01:30→20:30)
--- NOTE | 2021-02-24 02:28 | NUR ---
0228 RT TITRATED O2 TO 8LITER VIA FACE MASK. O2 SATURATION 97%.
--- NOTE | 2021-02-24 04:30 | NUR ---
0430 AM CARE RENDERED. LINENS CHANGED. NO BM. NO SKIN BREAKDOWN NOTED WHEN CHECKED. PATIENT INDEPENDENT WITH TURNING. TOLERATED PROCEDURE WELL. NO C/O SHORTNESS OF BREATH OR DIFFICULTY BREATHING. CONT. TO DENY CHEST PAIN. REMAINS ON AMIODARONE DRIP AT 0.5MG/MIN RIGHT UPPER ARM MIDLINE INTACT AND PATENT. REMINDED PATIENT TO NOT MOVE RIGHT ARM MUCH POSSIBLE. REMAINS UNCONTROLLED A FIB IN THE 110S-120S. WILL CONT. TO MONITOR.
--- NOTE | 2021-02-24 05:00 | NUR ---
0500 O2 SWITCHED TO NC 6 LITERS. O2 SATURATION 97%. NO C/O SOB OR DIFFICULTY BREATHING. HOB ELEVATED FOR MAXIMUM OXYGENATION.
--- NOTE | 2021-02-24 06:30 | NUR ---
0630 PATIENT AWAKE WATCHING TV. NO COMPLAIN OF CHEST PAIN OR PALPITATIONS. HR NOTED IN THE 140S AFIB. AMIODARONE RUNNING AT 0.5MG/WV. CONT TO TOLERATE O2 AT 6LITERS VIA NC. RIGHT UPPER ARM MIDLINE INTACT AND PATENT. WILL CONT. TO MONITOR.
--- NOTE | 2021-02-24 07:15 | NUR ---
0715 REPORT GIVEN TO NANCY SZYMANSKI FOR TRANSFER OF CARE.
[2021-02-24] MEDS: BLOOD SUGAR DIAGNOSTIC 1 EACH STRIP IN SCH ×4 (07:30→22:24)
[2021-02-24 08:28] LABS: HEMATOCRIT 47 % (39-51); HEMOGLOBIN 15.3 g/dL (13.5-17.5); MEAN CORPUSCULAR HGB CONC 33 g/dl (31.0-36.0); MEAN CORPUSCULAR VOLUME 96 fL (80-96); PLATELET COUNT (AUTO) 200 K/uL (150-450); RED BLOOD CELL COUNT(AUTO) 4.88 MIL/uL (4.5-6.0)
[2021-02-24 08:29] LABS: ALBUMIN 2.5 g/dL (3.4-5.0); CALCIUM, SERUM 8.3 mg/dL (8.5-10.1); CREATININE 1.1 mg/dL (0.6-1.3); MAGNESIUM 1.6 mg/dL (1.8-2.4); PHOSPHORUS 1.5 mg/dL (2.5-4.9); POTASSIUM 3.6 mmol/L (3.5-5.1); TOTAL PROTEIN, SERUM 5.6 g/dL (6.4-8.2)
[2021-02-24 08:31] LABS: WHITE BLOOD COUNT (AUTO) 30.7 K/uL (4.3-11.0)
[2021-02-24] MEDS: NICOTINE PATCH (14MG) 14 MG PATCH.TD24 TD SCH (08:41)
[2021-02-24] MEDS: ASPIRIN EC 81 MG TABLET.DR PO SCH (08:41)
[2021-02-24] MEDS: ESCITALOPRAM OXALATE (10 MG) 10 MG TABLET PO SCH (08:41)
[2021-02-24] MEDS: DEXAMETHASONE SOD PHOSPHATE 10 MG/ML VIAL IV SCH (08:41)
[2021-02-24] MEDS: APIXABAN 5 MG TABLET PO SCH ×2 (08:42→16:01)
[2021-02-24] MEDS: FINASTERIDE (5 MG) 5 MG TABLET PO SCH (08:42)
[2021-02-24] MEDS: PANTOPRAZOLE 40 MG TABLET.DR PO SCH (08:43)
[2021-02-24] MEDS: MEMANTINE HCL 5 MG TABLET PO SCH ×2 (08:43→16:02)
[2021-02-24] MEDS: THIAMINE HCL 100 MG TABLET PO SCH (08:44)
[2021-02-24] MEDS: ACETAMINOPHEN 325 MG TABLET PO PRN (08:44)
[2021-02-24] MEDS: METOPROLOL TARTRATE 50 MG TABLET PO SCH ×2 (08:45→21:00)
[2021-02-24] MEDS: FUROSEMIDE 40 MG TABLET PO SCH (08:45)
[2021-02-24] MEDS: AMLODIPINE BESYLATE 10 MG TABLET PO SCH (08:45)
[2021-02-24] MEDS: FLUTICASONE/VILANTEROL 1 EACH BLST.W.DEV IH SCH (08:55)
--- NOTE | 2021-02-24 09:42 | NUR ---
received awake wbc elevated [id number] plus notified nonew orders.
[2021-02-24] MEDS: Magnesium 1GM/D5W 100ML PREMIX 100 ML IV SCH ×2 (10:57→11:29)
[2021-02-24 12:00] LABS: BAND % (MANUAL) 8 % (0.0-5.0); NEUTROPHILS % (MANUAL) 92 (42-76)
[2021-02-24] MEDS ORDERED: Sodium Phosphate 15 MMOL in IV NS 0.9% 245 ML IV ONE (13:00)
[2021-02-24] MEDS: AMIODARONE 450 MG in IV D5W 241 ML IV PRN (13:38)
[2021-02-24] MEDS ORDERED: IV NS 0.9% 500 ML IV ONE (14:00)
[2021-02-24] MEDS: NOREPINEPHRINE 8 MG in IV NS 0.9% 242 ML IV PRN ×2 (15:21→21:13)
[2021-02-24] MEDS: DILTIAZEM HCL 30 MG TABLET PO SCH (17:05)
[2021-02-24] MEDS: risperiDONE 1 MG TABLET PO SCH (17:05)
[2021-02-24] MEDS: MEROPENEM 1 G in IV NS 0.9% 100 ML IV SCH (19:31)
[2021-02-24] MEDS: VANCOMYCIN 1 GM in IV D5W 250 ML IV SCH (20:16)
--- NOTE | 2021-02-24 20:35 | NUR ---
RN NOTE PATIENT SLEEPING, EASILY AROUSED. ABLE TO MAKE NEEDS KNOWN. ON O2 10L VIA SIMPLE MASK. NO S/S OF ANY DISCOMFORT. IV ACCESS ON KHADIJAH INFUSING LEVO @ .3 MCG/KG/MIN NO S/S OF INFILTRATION. ALSO NOTED WITH IV ACCESS ON RIGHT HAND AND RIGHT WRIST, PATENT AND INTACT. BED LOCKED AND IN LOWEST POSITION. CALL LIGHT WITHIN REACH. ALL NEEDS ANTICIPATED.
--- NOTE | 2021-02-24 21:48 | NUR ---
RN NOTE PATIENT STILL LETHARGIC, ABLE TO AROUSE. CONTINUES ON LEVO .3 MCG/KG/MIN, SBP 107/54, HR 90-100'S. PT IS ALSO NPO. HAS ORDER FOR METOPROLOL 100MG PO @ 2100 AND DILTIAZEM 60MG PO Q6H @0000 AND @0600. INFORMED DR. CORCORAN WITH ORDER TO HOLD PO MEDICATIONS. NOTED. ALL NEEDS ANTICIPATED.
[2021-02-24] MEDS: TAMSULOSIN 0.4 MG CAP.SR.24H PO SCH (22:00)
[2021-02-24] MEDS: *INSULIN REGULAR(HUMULIN R)HUM 100 UNIT/ML VIAL SQ PRN (22:24)
[2021-02-25] VITALS (83 sets, daily range): BP systolic 83–160; BP diastolic 42–101
[2021-02-25] MEDS: IPRATROPIUM NEB FS 0.5 MG/2.5 ML AMPUL.NEB NEB SCH ×4 (02:30→20:34)
[2021-02-25] MEDS: MEROPENEM 1 G in IV NS 0.9% 100 ML IV SCH ×3 (03:02→18:14)
[2021-02-25] MEDS: NOREPINEPHRINE 8 MG in IV NS 0.9% 242 ML IV PRN ×2 (03:04→14:02)
--- NOTE | 2021-02-25 04:29 | NUR ---
RN NOTE PATIENT COMPLAINING OF BACK PAIN, TEMP 99.9. TYLENOL SUPP GIVEN ORDERED. HR 140'S-150'S, DENIES ANY CHEST PAIN. STAT EKG DONE, PAGED DR. CORCORAN. AWAITING FOR ANY NEW ORDERS.
[2021-02-25] MEDS ORDERED: ACETAMINOPHEN 650 MG/SUPP.RECT RC PRN (04:30)
--- NOTE | 2021-02-25 04:36 | NUR ---
RN NOTE SPOKE WITH DR. JORGENSEN, RELAYED EKG RESULT AFIB UNCONTROLLED 150'S. PT REMAINS NPO. DR. JORGENSEN WITH NEW ORDER FOR CARDIZEM 10MG IVP ONCE. NOTED AND CARRIED OUT.
[2021-02-25] MEDS ORDERED: DILTIAZEM HCL 50 MG IV IV ONE (05:00)
--- NOTE | 2021-02-25 05:04 | NUR ---
RN NOTE CARDIZEM 10MG IVP GIVEN, HR NOW 120, STILL REMAINS AFIB. CONTINUES ON LEVO @ .2MCG/KG/MIN. INFORMED DR. CORCORAN WITH ORDERS TO MONITOR.
[2021-02-25 05:42] LABS: CREATININE 1.3 mg/dL (0.6-1.3); MAGNESIUM 2.2 mg/dL (1.8-2.4); POTASSIUM 3.8 mmol/L (3.5-5.1)
[2021-02-25 05:47] LABS: BASOPHILS # (AUTO) 0.1 K/uL (0.0-0.2); BASOPHILS % (AUTO) 0.6 % (0.0-2.0); EOSINOPHILS % (AUTO) 0.1 % (0.0-6.0); HEMATOCRIT 45 % (39-51); HEMOGLOBIN 14.9 g/dL (13.5-17.5); LYMPHOCYTES # (AUTO) 0.4 K/uL (0.8-4.8); LYMPHOCYTES % (AUTO) 1.5 % (20.0-44.0); MEAN CORPUSCULAR HGB CONC 33 g/dl (31.0-36.0); MEAN CORPUSCULAR VOLUME 96 fL (80-96); MONOCYTES # (AUTO) 0.1 K/uL (0.1-1.30); MONOCYTES % (AUTO) 0.3 % (2.0-12.0); NEUTROPHILS # (AUTO) 25.2 K/uL (1.8-8.9); NEUTROPHILS % (AUTO) 97.5 % (43.0-81.0); RED BLOOD CELL COUNT(AUTO) 4.69 MIL/uL (4.5-6.0); WHITE BLOOD COUNT (AUTO) 25.9 K/uL (4.3-11.0)
[2021-02-25] MEDS: DILTIAZEM HCL 30 MG TABLET PO SCH ×4 (05:49→17:21)
--- NOTE | 2021-02-25 06:37 | NUR ---
RN NOTE PATIENT ALERT AND ORIENTED X3. ON O2 10L VIA SIMPLE MASK. IV ACCESS ON KHADIJAH PICC INFUSING LEVO @ .1 MCG/KG/MIN NO S/S OF INFILTRATION. ALSO NOTED WITH IV ACCESS ON RIGHT HAND AND RIGHT WRIST, PATENT AND INTACT. HR 110-120'S. VOIDED 600CC SILVIO URINE VIA URINAL. TOLERATED BED BATH WELL. BED LOCKED AND IN LOWEST POSITION. CALL LIGHT WITHIN REACH. WILL ENDORSE TO AM SHIFT.
--- NOTE | 2021-02-25 07:05 | NUR ---
RN OPENING NOTES RECEIVED PT AWAKE, A/O X2-3. ON O2 10L VIA SIMPLE MASK. IV ACCESS ON KHADIJAH PICC RUNNING LEVO @.1 MCG/KG/MIN. NPO. SAFETY MEASURES IN PLACE. CALL LIGHT WITHIN REACH. BED LOCKED AND IN LOWEST POSITION WITH SIDE RAILS UP X3. WILL CONTINUE TO MONITOR.
[2021-02-25] MEDS: VANCOMYCIN 1 GM in IV D5W 250 ML IV SCH ×2 (07:10→18:53)
[2021-02-25] MEDS: BLOOD SUGAR DIAGNOSTIC 1 EACH STRIP IN SCH ×4 (07:52→21:00)
--- NOTE | 2021-02-25 08:00 | NUR ---
RN NOTES BEDSIDE SWALLOW EVAL DONE. ABLE TO DRINK WATER AND APPLE SAUCE. NO SIGNS OF ASPIRATION.
[2021-02-25] MEDS: METOPROLOL TARTRATE 50 MG TABLET PO SCH ×2 (09:00→21:00)
[2021-02-25] MEDS: AMLODIPINE BESYLATE 10 MG TABLET PO SCH (09:00)
[2021-02-25] MEDS: NICOTINE PATCH (14MG) 14 MG PATCH.TD24 TD SCH (09:21)
[2021-02-25] MEDS: MEMANTINE HCL 5 MG TABLET PO SCH ×2 (09:22→16:39)
[2021-02-25] MEDS: THIAMINE HCL 100 MG TABLET PO SCH (09:22)
[2021-02-25] MEDS: PANTOPRAZOLE 40 MG TABLET.DR PO SCH (09:22)
[2021-02-25] MEDS: ASPIRIN EC 81 MG TABLET.DR PO SCH (09:22)
[2021-02-25] MEDS: ESCITALOPRAM OXALATE (10 MG) 10 MG TABLET PO SCH (09:22)
[2021-02-25] MEDS: FINASTERIDE (5 MG) 5 MG TABLET PO SCH (09:22)
[2021-02-25] MEDS: FUROSEMIDE 40 MG TABLET PO SCH (09:22)
[2021-02-25] MEDS: APIXABAN 5 MG TABLET PO SCH ×2 (09:24→16:38)
[2021-02-25] MEDS: FLUTICASONE/VILANTEROL 1 EACH BLST.W.DEV IH SCH (09:24)
[2021-02-25] MEDS: INSULIN REGULAR, HUMAN 100 UNIT/ML 3 ML VIAL SQ PRN ×3 (09:26→17:23)
[2021-02-25 12:27] LABS: BAND % (MANUAL) 14 % (0.0-5.0); LYMPHOCYTES % (MANUAL) 4 % (16-48); MONOCYTES % (MANUAL) 1 % (0-11.0); NEUTROPHILS % (MANUAL) 81 (42-76)
[2021-02-25 12:29] LABS: PLATELET COUNT (AUTO) 97 K/uL (150-450)
--- NOTE | 2021-02-25 13:45 | NUR ---
RT PLACED PT ON 5 LPM O2 VIA NC. SPO2 95-96%. RENE CRUZ NOTIFIED. WILL CONTINUE TO MONITOR THE PATIENT
[2021-02-25] MEDS: risperiDONE 1 MG TABLET PO SCH (17:20)
--- NOTE | 2021-02-25 19:12 | NUR ---
RN NOTES NO SIGNIFICANT CHANGES THROUGHOUT THE SHIFT. ON 6L O2 VIA NC, NO SOB OR ANY S/S OF RESPIRATORY DISTRESS NOTED. ALL DUE MEDS GIVEN. NEEDS ATTENDED. KEPT CLEAN AND COMFORTABLE. ENDORSED TO NIGHT RN FOR VIVIAN.
--- NOTE | 2021-02-25 19:14 | NUR ---
Received patient on 5LPM nasal cannula. Breathing treatment given and tolerated well. No adverse reaction noted at this time. No SOB or respiratory distress. Will continue to monitor throughout the shift.
--- NOTE | 2021-02-25 19:49 | NUR ---
RN NOTE RECEIVED PATIENT IN BED, AWAKE, ALERT, AND VERBALLY RESPONSIVE. AOX3. BREATHING EVEN AND UNLABORED, NOTED TO BE ON OXYGEN 6L/MIN VIA NASAL CANNULA, TOLERATING WELL. 93-96 PERCENT. NO DISTRESS AT THIS TIME. DENIES CHEST PAIN. ON TELE MONITORING. A.FIB AT 100-118 BPM. SKIN WARM AND DRY. NOTED WITH LEFT UPPER ARM PICC LINE, RUNNING LEVOPHED AT 0.02 MCG/MIN. NO BLEEDING NOTED. NOTED WITH RFA 18G, NO INFILTRATION. RUNNING VANCOMYCIN. NO INFILTRATION. BED LOW, IN LOCKED POSITION, CALL LIGHT WITHIN REACH.
[2021-02-25] MEDS: TAMSULOSIN 0.4 MG CAP.SR.24H PO SCH (21:02)
[2021-02-26] VITALS (28 sets, daily range): BP systolic 79–136; BP diastolic 48–96
[2021-02-26] MEDS ORDERED: PHENYLEPHRINE 10 MG/ML VIAL ONE (00:26)
[2021-02-26] MEDS: PHENYLEPHRINE 50 MG in IV NS 0.9% 245 ML IV PRN ×2 (00:33→15:31)
--- NOTE | 2021-02-26 00:50 | NUR ---
RN NOTE PER JAMEEL HANSON, DISCONTINUE LEVOPHED AND INITIATE NEOSYNEPHRINE. NOTED AND CARRIED OUT. PROTOCOL OBSERVED. ALSO, PER MD, GIVE CARDIZEM 60 MG PO IF SBP > 90 MMHG. NOTED AND CARRIED OUT. WILL CONTINUE TO MONITOR.
[2021-02-26] MEDS: DILTIAZEM HCL 30 MG TABLET PO SCH ×4 (00:56→17:02)
[2021-02-26] MEDS: IV NS 0.9% 250 ML IV PRN ×2 (01:24→09:18)
[2021-02-26] MEDS: IPRATROPIUM NEB FS 0.5 MG/2.5 ML AMPUL.NEB NEB SCH ×4 (02:09→19:38)
[2021-02-26] MEDS: MEROPENEM 1 G in IV NS 0.9% 100 ML IV SCH ×3 (02:28→18:00)
--- NOTE | 2021-02-26 04:39 | NUR ---
Titrated O2 to 4LPM. SPO2 96%. No SOB noted. NANCY Aguilar notified. Will continue to monitor.
[2021-02-26 05:10] LABS: CALCIUM, SERUM 7.9 mg/dL (8.5-10.1); POTASSIUM 3.4 mmol/L (3.5-5.1)
[2021-02-26 05:15] LABS: BASOPHILS % (AUTO) 0.1 % (0.0-2.0); EOSINOPHILS % (AUTO) 0.8 % (0.0-6.0); HEMATOCRIT 40 % (39-51); HEMOGLOBIN 13.5 g/dL (13.5-17.5); LYMPHOCYTES # (AUTO) 0.9 K/uL (0.8-4.8); MEAN CORPUSCULAR HGB CONC 34 g/dl (31.0-36.0); MEAN CORPUSCULAR VOLUME 95 fL (80-96); MONOCYTES # (AUTO) 0.5 K/uL (0.1-1.30); MONOCYTES % (AUTO) 1.7 % (2.0-12.0); NEUTROPHILS # (AUTO) 27.8 K/uL (1.8-8.9); NEUTROPHILS % (AUTO) 94.4 % (43.0-81.0); PLATELET COUNT (AUTO) 69 K/uL (150-450); RED BLOOD CELL COUNT(AUTO) 4.21 MIL/uL (4.5-6.0); WHITE BLOOD COUNT (AUTO) 29.4 K/uL (4.3-11.0)
[2021-02-26] MEDS: VANCOMYCIN 1 GM in IV D5W 250 ML IV SCH ×2 (06:27→18:40)
[2021-02-26] MEDS: BLOOD SUGAR DIAGNOSTIC 1 EACH STRIP IN SCH ×4 (07:42→21:15)
[2021-02-26] MEDS: NICOTINE PATCH (14MG) 14 MG PATCH.TD24 TD SCH (08:24)
[2021-02-26] MEDS: THIAMINE HCL 100 MG TABLET PO SCH (08:25)
[2021-02-26] MEDS: PANTOPRAZOLE 40 MG TABLET.DR PO SCH (08:25)
[2021-02-26] MEDS: FUROSEMIDE 20 MG TABLET PO SCH (08:25)
[2021-02-26] MEDS: ASPIRIN EC 81 MG TABLET.DR PO SCH (08:25)
[2021-02-26] MEDS: MEMANTINE HCL 5 MG TABLET PO SCH ×2 (08:25→17:02)
[2021-02-26] MEDS: FINASTERIDE (5 MG) 5 MG TABLET PO SCH (08:25)
[2021-02-26] MEDS: ESCITALOPRAM OXALATE (10 MG) 10 MG TABLET PO SCH (08:25)
[2021-02-26] MEDS: METOPROLOL TARTRATE 50 MG TABLET PO SCH ×2 (08:25→21:00)
[2021-02-26] MEDS: APIXABAN 5 MG TABLET PO SCH ×2 (08:37→17:06)
--- NOTE | 2021-02-26 08:37 | NUR ---
RN NOTE PLT 67 THIS AM. PER ADMITTING COORDINATOR PATRICIA OKAY TO GIVE ELIQUIS 5MG. WILL CONTINUE TO MONITOR.
[2021-02-26] MEDS: FLUTICASONE/VILANTEROL 1 EACH BLST.W.DEV IH SCH (08:58)
[2021-02-26] MEDS ORDERED: POTASSIUM CHLORIDE 20 MEQ TAB.PRT.SR PO SCH (09:30)
[2021-02-26 10:16] LABS: BAND % (MANUAL) 6 % (0.0-5.0); LYMPHOCYTES % (MANUAL) 4 % (16-48); MONOCYTES % (MANUAL) 1 % (0-11.0); NEUTROPHILS % (MANUAL) 89 (42-76)
[2021-02-26] MEDS: INSULIN REGULAR, HUMAN 100 UNIT/ML 3 ML VIAL SQ PRN (11:37)
[2021-02-26] MEDS: risperiDONE 1 MG TABLET PO SCH (17:02)
--- NOTE | 2021-02-26 17:47 | NUR ---
RN NOTE TERESA DRIP TITRATED DOWN TO 0.5 MCG/KG/MIN. BP AND HR STABLE AT THIS TIME. WILL CONTINUE TO TITRATE DOWN. WILL CONTINUE TO MONITOR.
--- NOTE | 2021-02-26 18:55 | NUR ---
RN NOTE TERESA DRIP STOPPED. VITAL SIGNS STABLE. PATIENT RESTING WITH NO SIGNS OF DISTRESS. WILL CONTINUE TO MONITOR.
--- NOTE | 2021-02-26 18:56 | NUR ---
RN CLOSING NOTE PATIENT REMAINS IN BED, RESTING, A&OX3. PATIENT ON 3L O2 NC WITH NO SIGNS OF LABORED BREATHING AT THIS TIME, SATURATING 94%, VITAL SIGNS STABLE. RIGHT UA MIDLINE, LEFT UA PICC AND RIGHT FA 18G PIV IN PLACE. ALL NEED ATTENDED DURING SHIFT, 2 SIDE RAILS UP, CALL LIGHT WITHIN REACH. WILL ENDORSE TO THERAPY ASSISTANT NURSE.
--- NOTE | 2021-02-26 19:42 | NUR ---
RN NOTE RECEIVED PATIENT IN BED, SLEEPING, EASILY AROUSABLE TO NAME AND TOUCH. AOX3-4. BREATHING EVEN AND UNLABORED. CURRENTLY ON 3L/MIN VIA NASAL CANNULA. TOLERATING WELL AT 96 PERCENT OXYGEN SATURATION. SKIN WARM AND DRY. NOTED WITH LEFT UPPER ARM PICC LINE AND RIGHT UPPER ARM MIDLINE, RFA 18G. PATIENT USES URINAL. DENIES PAIN AT THIS TIME. NO S/S OF HYPO/HYPERGLYCEMIA AT THIS TIME. BED LOW, IN LOCKED POSITION. WILL CONTINUE TO MONITOR. CALL LIGHT WITHIN REACH.
[2021-02-26] MEDS: TAMSULOSIN 0.4 MG CAP.SR.24H PO SCH (21:26)
[2021-02-26] MEDS: *INSULIN REGULAR(HUMULIN R)HUM 100 UNIT/ML VIAL SQ PRN (21:31)
--- NOTE | 2021-02-26 21:50 | NUR ---
RN NOTE PATIENT NOTED WITH DECREASED BLOOD PRESSURE WITHIN THE LAST HOUR. ALSO TACHYCARDIC, RANGING FROM 100- 120 BPM. PATIENT NOT ON NEOSYNEPHRINE. CONTACTED ALICE HANSON, AND DISCUSSED SITUATION AND RELAYED OBJECTIVE DATA. PER MD, BOLUS WITH 500 CC NS AND START VASOPRESSIN AFTER BOLUS. PARAMATER PER MD IS TO KEEP MAP ABOVE 60. ORDER NOTED AND CARRIED OUT. WILL CONTINUE TO MONITOR BLOOD PRESSURE. CHARGE NURSE MADE AWARE.
[2021-02-26] MEDS ORDERED: IV NS 0.9% 500 ML IV ONE (22:00)
[2021-02-26] MEDS ORDERED: VASOPRESSIN INJ 40 UNIT in IV NS 0.9% 38 ML IV PRN (22:30)
[2021-02-27] VITALS (25 sets, daily range): BP systolic 85–128; BP diastolic 27–79
[2021-02-27] MEDS: DILTIAZEM HCL 30 MG TABLET PO SCH ×4 (01:03→17:02)
[2021-02-27] MEDS: IPRATROPIUM NEB FS 0.5 MG/2.5 ML AMPUL.NEB NEB SCH ×4 (01:30→20:21)
[2021-02-27] MEDS: MEROPENEM 1 G in IV NS 0.9% 100 ML IV SCH ×3 (03:25→18:25)
[2021-02-27 05:51] LABS: CALCIUM, SERUM 7.9 mg/dL (8.5-10.1); CREATININE 0.9 mg/dL (0.6-1.3); POTASSIUM 3.7 mmol/L (3.5-5.1)
[2021-02-27] MEDS: VANCOMYCIN 1 GM in IV D5W 250 ML IV SCH (06:41)
[2021-02-27 07:34] LABS: BASOPHILS % (AUTO) 0.4 % (0.0-2.0); EOSINOPHILS % (AUTO) 0.4 % (0.0-6.0); HEMATOCRIT 38 % (39-51); HEMOGLOBIN 12.7 g/dL (13.5-17.5); LYMPHOCYTES % (AUTO) 8.5 % (20.0-44.0); MEAN CORPUSCULAR HGB CONC 33 g/dl (31.0-36.0); MEAN CORPUSCULAR VOLUME 95 fL (80-96); MONOCYTES # (AUTO) 0.3 K/uL (0.1-1.30); NEUTROPHILS # (AUTO) 9.9 K/uL (1.8-8.9); NEUTROPHILS % (AUTO) 87.7 % (43.0-81.0); PLATELET COUNT (AUTO) 54 K/uL (150-450); RED BLOOD CELL COUNT(AUTO) 4.05 MIL/uL (4.5-6.0); WHITE BLOOD COUNT (AUTO) 11.3 K/uL (4.3-11.0)
--- NOTE | 2021-02-27 08:00 | NUR ---
ICU/RN PT IS RESTING ON THE BED.AWAKE,ALERT.PTIS ON 4L N/C SAT O2-97%.V.S STABLE.OFF PRESSORS. A-FIB ON MONITOR.HR UP TO 130 BPM.AFEBRILE.NO PAIN REPORTED AT THIS TIME.PT USE URINAL ,TAKE LASIX PO.WITH GOOD URINE OUTPUT.PT EATS 100% FROM HIS MEAL TRAY.
--- NOTE | 2021-02-27 09:15 | NUR ---
ICU/RN DUE MEDS ARE GIVEN ORDERED.
[2021-02-27] MEDS: BLOOD SUGAR DIAGNOSTIC 1 EACH STRIP IN SCH ×4 (09:20→21:55)
[2021-02-27] MEDS: NICOTINE PATCH (14MG) 14 MG PATCH.TD24 TD SCH (09:20)
[2021-02-27] MEDS: ASPIRIN EC 81 MG TABLET.DR PO SCH (09:21)
[2021-02-27] MEDS: FINASTERIDE (5 MG) 5 MG TABLET PO SCH (09:21)
[2021-02-27] MEDS: APIXABAN 5 MG TABLET PO SCH ×2 (09:21→16:19)
[2021-02-27] MEDS: THIAMINE HCL 100 MG TABLET PO SCH (09:22)
[2021-02-27] MEDS: FUROSEMIDE 20 MG TABLET PO SCH (09:22)
[2021-02-27] MEDS: MEMANTINE HCL 5 MG TABLET PO SCH ×2 (09:22→16:19)
[2021-02-27] MEDS: ESCITALOPRAM OXALATE (10 MG) 10 MG TABLET PO SCH (09:22)
[2021-02-27] MEDS: PANTOPRAZOLE 40 MG TABLET.DR PO SCH (09:22)
[2021-02-27] MEDS: METOPROLOL TARTRATE 50 MG TABLET PO SCH ×2 (09:23→20:53)
[2021-02-27 10:34] LABS: BAND % (MANUAL) 5 % (0.0-5.0); LYMPHOCYTES % (MANUAL) 3 % (16-48); NEUTROPHILS % (MANUAL) 89 (42-76); REACTIVE LYMPHOCYTES 1 % (0-0)
[2021-02-27] MEDS: FLUTICASONE/VILANTEROL 1 EACH BLST.W.DEV IH SCH (11:35)
[2021-02-27] MEDS: INSULIN REGULAR, HUMAN 100 UNIT/ML 3 ML VIAL SQ PRN (11:53)
[2021-02-27] MEDS: IV NS 0.9% 250 ML IV PRN (16:43)
[2021-02-27] MEDS: risperiDONE 1 MG TABLET PO SCH (17:02)
[2021-02-27] MEDS: ACETAMINOPHEN 325 MG TABLET PO PRN (17:06)
--- NOTE | 2021-02-27 18:40 | NUR ---
ICU/RN PT TRANSFERRED TO TELE UNIT.V/S STABLE,AFEBRILE.NO PAIN REPORTED AT THIS TIME.A-FIB ON MONITOR CONTROL HR-80-90 BPM.PT EATS 100% FROM HIS MEAL TRAY.REPORT GIVEN TO MAGALIS/NANCY.
--- NOTE | 2021-02-27 19:35 | NUR ---
RN NOTE RECEIVED PATIENT IN BED, AWAKE AOX3-4. BREATHING EVEN AND UNLABORED. CURRENTLY ON 4L/MIN VIA NASAL CANNULA. TOLERATING WELL AT 96 PERCENT OXYGEN SATURATION. SKIN WARM AND DRY. NOTED WITH LEFT UPPER ARM PICC LINE AND RIGHT UPPER ARM MIDLINE, RFA 18G. PATIENT USES URINAL. DENIES PAIN AT THIS TIME. NO S/S OF HYPO/HYPERGLYCEMIA AT THIS TIME. BED LOW, IN LOCKED POSITION. WILL CONTINUE TO MONITOR. CALL LIGHT WITHIN REACH.
[2021-02-27] MEDS: TAMSULOSIN 0.4 MG CAP.SR.24H PO SCH (21:55)
[2021-02-27] MEDS: *INSULIN REGULAR(HUMULIN R)HUM 100 UNIT/ML VIAL SQ PRN (22:04)
[2021-02-28] VITALS (7 sets, daily range): BP systolic 88–120; BP diastolic 52–77
[2021-02-28] MEDS: DILTIAZEM HCL 30 MG TABLET PO SCH ×5 (00:20→18:26)
[2021-02-28] MEDS: IPRATROPIUM NEB FS 0.5 MG/2.5 ML AMPUL.NEB NEB SCH ×4 (01:59→19:00)
[2021-02-28] MEDS: MEROPENEM 1 G in IV NS 0.9% 100 ML IV SCH ×2 (02:28→10:24)
[2021-02-28] MEDS: BLOOD SUGAR DIAGNOSTIC 1 EACH STRIP IN SCH ×4 (06:35→21:17)
[2021-02-28] MEDS: INSULIN REGULAR, HUMAN 100 UNIT/ML 3 ML VIAL SQ PRN ×3 (06:35→18:35)
--- NOTE | 2021-02-28 06:47 | NUR ---
RADIO SURVEY WORKER NOTE PATIENT IN BED, AWAKE AOX3-4. BREATHING EVEN AND UNLABORED. CURRENTLY ON 4L/MIN VIA NASAL CANNULA. TOLERATING WELL AT 96 PERCENT OXYGEN SATURATION. SKIN WARM AND DRY. NOTED WITH LEFT UPPER ARM PICC LINE AND RIGHT UPPER ARM MIDLINE, RFA 18G. PATIENT USES URINAL. DENIES PAIN AT THIS TIME. NO S/S OF HYPO/HYPERGLYCEMIA AT THIS TIME. BED LOW, IN LOCKED POSITION. TABLE WITHIN REACH CALL LIGHT WITHIN REACH. PT ON TELE MONITOR WITH A -FIB 100S. WILL ENDORSE CARE TO DAY SHIFT NURSE.
--- NOTE | 2021-02-28 07:55 | NUR ---
CLINICAL ENGINEERING MANAGER NOTE RECEIVED PATIENT IN BED, AWAKE AOX3-4. BREATHING EVEN AND UNLABORED. CURRENTLY ON 4L/MIN VIA NASAL CANNULA. TOLERATING WELL AT 96 PERCENT OXYGEN SATURATION. SKIN WARM AND DRY. NOTED WITH LEFT UPPER ARM PICC LINE AND RIGHT UPPER ARM MIDLINE, RFA 18G. ON TELE MONITORING OF CONTROLLED AFIB.PATIENT USES URINAL. DENIES PAIN AT THIS TIME. NO S/S OF HYPO/HYPERGLYCEMIA AT THIS TIME. BED LOW, IN LOCKED POSITION. WILL CONTINUE TO MONITOR. CALL LIGHT WITHIN REACH.
[2021-02-28 08:07] LABS: BASOPHILS % (AUTO) 0.5 % (0.0-2.0); EOSINOPHILS % (AUTO) 0.9 % (0.0-6.0); HEMATOCRIT 39 % (39-51); HEMOGLOBIN 13.2 g/dL (13.5-17.5); LYMPHOCYTES % (AUTO) 13.4 % (20.0-44.0); MEAN CORPUSCULAR HGB CONC 34 g/dl (31.0-36.0); MEAN CORPUSCULAR VOLUME 94 fL (80-96); MONOCYTES # (AUTO) 0.4 K/uL (0.1-1.30); MONOCYTES % (AUTO) 5.7 % (2.0-12.0); NEUTROPHILS # (AUTO) 5.7 K/uL (1.8-8.9); NEUTROPHILS % (AUTO) 79.5 % (43.0-81.0); PLATELET COUNT (AUTO) 59 K/uL (150-450); RED BLOOD CELL COUNT(AUTO) 4.15 MIL/uL (4.5-6.0); WHITE BLOOD COUNT (AUTO) 7.1 K/uL (4.3-11.0)
[2021-02-28 08:26] LABS: CALCIUM, SERUM 8.9 mg/dL (8.5-10.1); CREATININE 0.8 mg/dL (0.6-1.3); POTASSIUM 3.9 mmol/L (3.5-5.1)
[2021-02-28] MEDS: NICOTINE PATCH (14MG) 14 MG PATCH.TD24 TD SCH (08:57)
[2021-02-28] MEDS: FLUTICASONE/VILANTEROL 1 EACH BLST.W.DEV IH SCH (08:57)
[2021-02-28] MEDS: METOPROLOL TARTRATE 50 MG TABLET PO SCH ×2 (08:58→21:06)
[2021-02-28] MEDS: FINASTERIDE (5 MG) 5 MG TABLET PO SCH (08:58)
[2021-02-28] MEDS: ASPIRIN EC 81 MG TABLET.DR PO SCH (08:58)
[2021-02-28] MEDS: MEMANTINE HCL 5 MG TABLET PO SCH ×2 (08:59→18:25)
[2021-02-28] MEDS: THIAMINE HCL 100 MG TABLET PO SCH (08:59)
[2021-02-28] MEDS: ESCITALOPRAM OXALATE (10 MG) 10 MG TABLET PO SCH (08:59)
[2021-02-28] MEDS: APIXABAN 5 MG TABLET PO SCH (09:00)
[2021-02-28] MEDS: PANTOPRAZOLE 40 MG TABLET.DR PO SCH (09:01)
--- NOTE | 2021-02-28 09:30 | NUR ---
POINTING MACHINE OPERATOR NOTES RECEIVED PATIENT AT 0926 AM VIA [employer] . PATIENT ALERT AND ORIENTED TIMES 4. NO PAIN NOTED NO SOB NOTED, NO RESPIRATORY DISTRESS NOTED. VITAL SIGNS WITHIN NORMAL RANGES. SKIN INTACT. IV ACCESS ON RAC #20 AND RIGHT HAND # 20. ABLE TO AMBULATE TO BATHROOM . ALL BELONGINGS RECORDED. BED LOCKED IN THE LOWEST POSITION. CALL LIGHT AND TABLE WITHIN REACH. WILL CONTINUE TO MONITOR THE PATIENT. Addendum: 02/28/21 at 2001 by SHOBHA BURROUGHS RN RN NOTES CHARTED ON WRONG PATIENT.
[2021-02-28 09:50] LABS: LYMPHOCYTES % (MANUAL) 10 % (16-48); MONOCYTES % (MANUAL) 13 % (0-11.0); NEUTROPHILS % (MANUAL) 77 (42-76)
--- NOTE | 2021-02-28 10:30 | NUR ---
RN NOTES RECEIVED CALL FROM DR. JENKINS AT 1030 AM. NEW ORDERS OF DIGOXIN 0.5 MG IV I TIME FOR 02/28/21. STARTING TOMORROW 03/01/21 ON DIGOXIN 0.125MG PO DAILY.
[2021-02-28] MEDS ORDERED: DIGOXIN INJ 0.5 MG/2 ML AMPUL IV ONE (11:30)
[2021-02-28] MEDS: CEFTRIAXONE 2 G in IV D5W 100 ML IV SCH (13:34)
[2021-02-28] MEDS: risperiDONE 1 MG TABLET PO SCH (18:25)
--- NOTE | 2021-02-28 19:00 | NUR ---
RT NOTE RECEIVED PT ON 5LPM NC. TX GIVEN. NO SOB OR S/S OF ACUTE RESPIRATORY DISTRESS NOTED. WILL CONTINUE TO MONITOR T/O SHIFT.
--- NOTE | 2021-02-28 19:30 | NUR ---
PLUMBING INSTRUCTOR NOTE PATIENT IN BED, AWAKE AOX3-4. BREATHING EVEN AND UNLABORED. CURRENTLY ON 4L/MIN VIA NASAL CANNULA. TOLERATING WELL . SKIN WARM AND DRY. NOTED WITH LEFT UPPER ARM PICC LINE AND RIGHT UPPER ARM MIDLINE, RFA 18G. ON TELE MONITORING OF CONTROLLED AFIB.PATIENT USES URINAL. ABLE TO WALK TO BATHROOM WITH ASSISTANCE. DENIES PAIN AT THIS TIME. NO S/S OF HYPO/HYPERGLYCEMIA AT THIS TIME. BED LOW, IN LOCKED POSITION. ENDORSED INCOMING SHIFT TO HOLD ASPIRIN AND ELIQUIS FOR LOW PLATELET COUNT.ALL DUE MEDS GIVEN ORDERED.CALL LIGHT WITHIN REACH.WILL ENDORSE INCOMING SHIFT FOR VIVIAN.
--- NOTE | 2021-02-28 19:50 | NUR ---
WIND ENERGY ENGINEER OPENING NOTES RECEIVED PATIENT LAYING AWAKE IN BED. A/OX4. PATIENT WITH REGULAR AND UNLABORED BREATHING ON 4LPM VIA NASAL CANULA TOLERATED WELL. NO SIGNS AND SYMPTOMS OF DISTRESS NOTED AT THIS TIME. NO COMPLAINS OF PAIN OR DISCOMFORT AT THIS TIME. PATIENT ON TELE MONITOR READING A -FIB @ 71 BPM. IV ACCESS KHADIJAH PICC LINE SL, R HAND SL, ANANT MIDLINE RUNNING 10 ML/HR. IV ACCESSES PATENT AND INTACT. SAFETY PRECAUTIONS ENFORCED WITH BED LOCKED AND AT LOWEST POSITION. SIDERAILS UP X2. CALL LIGHT WITHIN REACH AT ALL TIMES. WILL CONTINUE TO MONITOR PATIENT. Addendum: 03/01/21 at 0104 by VAN ELLINGTON RN MELISSA Mathew #[id number] SL NOT R HAND SL
[2021-02-28] MEDS: TAMSULOSIN 0.4 MG CAP.SR.24H PO SCH (21:05)
[2021-02-28] MEDS: *INSULIN REGULAR(HUMULIN R)HUM 100 UNIT/ML VIAL SQ PRN (21:21)
[2021-03-01] VITALS: BP 136/66
[2021-03-01] MEDS: IPRATROPIUM NEB FS 0.5 MG/2.5 ML AMPUL.NEB NEB SCH ×4 (00:44→20:54)
[2021-03-01] MEDS: DILTIAZEM HCL 30 MG TABLET PO SCH ×4 (00:52→18:53)
[2021-03-01 04:00] VITALS: BP 114/65
[2021-03-01] MEDS: BLOOD SUGAR DIAGNOSTIC 1 EACH STRIP IN SCH ×4 (06:30→21:50)
[2021-03-01] MEDS: INSULIN REGULAR, HUMAN 100 UNIT/ML 3 ML VIAL SQ PRN ×2 (06:32→13:27)
--- NOTE | 2021-03-01 07:30 | NUR ---
CLEARANCE CUTTER OPENING NOTES: PATIENT IN BED, AWAKE AOX3-4. BREATHING EVEN AND UNLABORED. CURRENTLY ON 4L/MIN VIA NASAL CANNULA. TOLERATING WELL . SKIN WARM AND DRY. NOTED WITH LEFT UPPER ARM PICC LINE AND RIGHT UPPER ARM MIDLINE, RFA 18G. ON TELE MONITORING OF CONTROLLED AFIB.PATIENT USES URINAL. ABLE TO WALK TO BATHROOM WITH ASSISTANCE. DENIES PAIN AT THIS TIME. NO S/S OF HYPO/HYPERGLYCEMIA AT THIS TIME. BED LOW, IN LOCKED POSITION. CALL LIGHT WITHIN REACH.WILL CONTINUE TO MONITOR.
--- NOTE | 2021-03-01 07:33 | NUR ---
GEOTHERMAL OPERATIONS MANAGER CLOSING NOTES PATIENT STILL LAYING AWAKE IN BED. A/OX4. PATIENT WITH REGULAR AND UNLABORED BREATHING ON 4LPM VIA NASAL CANULA TOLERATED WELL. NO SIGNS AND SYMPTOMS OF DISTRESS NOTED AT THIS TIME. NO COMPLAINS OF PAIN OR DISCOMFORT AT THIS TIME. PATIENT ON TELE MONITOR READING A -FIB @ 75 BPM. IV ACCESS KHADIJAH PICC LINE SL, RFA G #18 SL, ANANT MIDLINE RUNNING 10 ML/HR. IV ACCESSES PATENT AND INTACT. SAFETY PRECAUTIONS ENFORCED WITH BED LOCKED AND AT LOWEST POSITION. SIDERAILS UP X2. CALL LIGHT WITHIN REACH AT ALL TIMES. WILL ENDORSE CONTINUITY OF CARE TO DAY SHIFT NURSE.
[2021-03-01 07:56] LABS: CALCIUM, SERUM 8.7 mg/dL (8.5-10.1); CREATININE 0.7 mg/dL (0.6-1.3); POTASSIUM 4.2 mmol/L (3.5-5.1)
[2021-03-01 08:21] LABS: BASOPHILS % (AUTO) 0.4 % (0.0-2.0); EOSINOPHILS % (AUTO) 1.5 % (0.0-6.0); HEMATOCRIT 40 % (39-51); HEMOGLOBIN 13.6 g/dL (13.5-17.5); LYMPHOCYTES # (AUTO) 1.1 K/uL (0.8-4.8); LYMPHOCYTES % (AUTO) 16.8 % (20.0-44.0); MEAN CORPUSCULAR HGB CONC 34 g/dl (31.0-36.0); MEAN CORPUSCULAR VOLUME 96 fL (80-96); MONOCYTES # (AUTO) 0.5 K/uL (0.1-1.30); MONOCYTES % (AUTO) 8.3 % (2.0-12.0); NEUTROPHILS # (AUTO) 4.7 K/uL (1.8-8.9); PLATELET COUNT (AUTO) 79 K/uL (150-450); RED BLOOD CELL COUNT(AUTO) 4.22 MIL/uL (4.5-6.0); WHITE BLOOD COUNT (AUTO) 6.5 K/uL (4.3-11.0)
[2021-03-01 09:19] VITALS: BP 135/64
[2021-03-01] MEDS: FLUTICASONE/VILANTEROL 1 EACH BLST.W.DEV IH SCH (09:57)
[2021-03-01] MEDS: NICOTINE PATCH (14MG) 14 MG PATCH.TD24 TD SCH (09:58)
[2021-03-01] MEDS: THIAMINE HCL 100 MG TABLET PO SCH (09:58)
[2021-03-01] MEDS: MEMANTINE HCL 5 MG TABLET PO SCH ×2 (09:58→18:54)
[2021-03-01] MEDS: ESCITALOPRAM OXALATE (10 MG) 10 MG TABLET PO SCH (09:58)
[2021-03-01] MEDS: DIGOXIN 0.125 MG TABLET PO SCH (09:59)
[2021-03-01] MEDS: PANTOPRAZOLE 40 MG TABLET.DR PO SCH (09:59)
[2021-03-01] MEDS: METOPROLOL TARTRATE 50 MG TABLET PO SCH ×2 (10:01→21:42)
[2021-03-01] MEDS: FINASTERIDE (5 MG) 5 MG TABLET PO SCH (10:02)
[2021-03-01 12:06] VITALS: BP 96/72
[2021-03-01] MEDS: CEFTRIAXONE 2 G in IV D5W 100 ML IV SCH (12:07)
[2021-03-01 13:47] LABS: LYMPHOCYTES % (MANUAL) 18 % (16-48); MONOCYTES % (MANUAL) 7 % (0-11.0); NEUTROPHILS % (MANUAL) 75 (42-76)
--- NOTE | 2021-03-01 14:15 | NUR ---
RN NOTES EMMANUEL SALOMON GAVE THE ORDER OF RESUME ASPIRIN AND ELIQUIS , SINCE THE PLATELET COUNT TODAY 03/01/21 WAS BETTER THAN YESTERDAY 02/28/21.
[2021-03-01] MEDS: APIXABAN 5 MG TABLET PO SCH ×2 (14:34→18:55)
[2021-03-01] MEDS: ASPIRIN EC 81 MG TABLET.DR PO SCH (14:35)
[2021-03-01 16:15] VITALS: BP 114/59
[2021-03-01] MEDS: risperiDONE 1 MG TABLET PO SCH (18:53)
--- NOTE | 2021-03-01 19:30 | NUR ---
STEREOPTICIAN CLOSING NOTES: PATIENT IN BED, AWAKE AOX3-4. BREATHING EVEN AND UNLABORED. CURRENTLY ON 4L/MIN VIA NASAL CANNULA. TOLERATING WELL . SKIN WARM AND DRY. NOTED WITH LEFT UPPER ARM PICC LINE ., RFA 18G. RIGHT UPPER MID LINE REMOVED. ON TELE MONITORING OF CONTROLLED AFIB.PATIENT USES URINAL. ABLE TO WALK TO BATHROOM WITH ASSISTANCE. DENIES PAIN AT THIS TIME. NO S/S OF HYPO/HYPERGLYCEMIA AT THIS TIME.ALL DUE MEDS GIVEN ORDERED. BED LOW, IN LOCKED POSITION. CALL LIGHT WITHIN REACH.WILL ENDORSE INCOMING SHIFT FOR VIVIAN.
[2021-03-01 20:00] VITALS: BP 120/55
[2021-03-01] MEDS: TAMSULOSIN 0.4 MG CAP.SR.24H PO SCH (21:50)
[2021-03-01] MEDS: *INSULIN REGULAR(HUMULIN R)HUM 100 UNIT/ML VIAL SQ PRN (22:49)
--- NOTE | 2021-03-01 22:49 | NUR ---
SUPPLY CHAIN SPECIALIST NOTE PATIENT'S BLOOD SUGAR LEVEL IS 134 MG/DL, PATIENT REFUSED TO TAKE SSI 2 UNITS AND STATED," NO INSULIN, BLOOD SUGAR NOT TOO HIGH." DESPITE OF RISKS AND BENEFITS EXPLANATIONS, PATIENT REFUSED TO TAKE SSI BUT WANTED TO EAT SNACK. SNACK WAS GIVEN TO THE PATIENT. WILL CONTINUE TO MONITOR FOR ANY CHANGE OF CONDITION.
[2021-03-02] VITALS: BP 113/63
[2021-03-02] MEDS: DILTIAZEM HCL 30 MG TABLET PO SCH ×4 (00:35→17:01)
[2021-03-02] MEDS: IPRATROPIUM NEB FS 0.5 MG/2.5 ML AMPUL.NEB NEB SCH ×3 (01:33→12:37)
[2021-03-02 04:00] VITALS: BP 121/64
[2021-03-02] MEDS: BLOOD SUGAR DIAGNOSTIC 1 EACH STRIP IN SCH ×3 (07:34→17:39)
--- NOTE | 2021-03-02 07:38 | NUR ---
RT NOTE FOUND PT ON 4LPM NC SPO2 92-94%. TX GIVEN. NO SOB OR S/S OS ACUTE RESPIRATORY DISTRESS NOTED. WILL CONTINUE TO MONITOR T/O SHIFT
--- NOTE | 2021-03-02 07:54 | NUR ---
RN OPENING NOTES PATIENT AWAKE IN BED RESTING, A/O X3. NO S/S OF PAIN NOTED AT THIS TIME. ON ROOM AIR, NO DISTRESS OR SHORTNESS OF BREATH NOTED. IV ACCESS KHADIJAH PICC LINE, INTACT, PATENT AND FLUSHING WELL. FALL AND SAFETY MEASURES IN PLACE, BED ALARM ON, BED IN LOW AND LOCK POSITION, CALL LIGHT AND TABLE WITHIN EASY REACH, SIDE RAILS UP X2. WILL CONTINUE TO MONITOR.
[2021-03-02 08:12] LABS: HEMATOCRIT 44 % (39-51); HEMOGLOBIN 14.9 g/dL (13.5-17.5); MEAN CORPUSCULAR HGB CONC 34 g/dl (31.0-36.0); MEAN CORPUSCULAR VOLUME 95 fL (80-96); PLATELET COUNT (AUTO) 108 K/uL (150-450); RED BLOOD CELL COUNT(AUTO) 4.63 MIL/uL (4.5-6.0); WHITE BLOOD COUNT (AUTO) 3.4 K/uL (4.3-11.0)
[2021-03-02 08:24] VITALS: BP 105/66
[2021-03-02] MEDS: FLUTICASONE/VILANTEROL 1 EACH BLST.W.DEV IH SCH (08:46)
[2021-03-02] MEDS: ESCITALOPRAM OXALATE (10 MG) 10 MG TABLET PO SCH (08:47)
[2021-03-02] MEDS: FINASTERIDE (5 MG) 5 MG TABLET PO SCH (08:47)
[2021-03-02] MEDS: DIGOXIN 0.125 MG TABLET PO SCH (08:47)
[2021-03-02] MEDS: PANTOPRAZOLE 40 MG TABLET.DR PO SCH (08:47)
[2021-03-02] MEDS: ASPIRIN EC 81 MG TABLET.DR PO SCH (08:47)
[2021-03-02] MEDS: NICOTINE PATCH (14MG) 14 MG PATCH.TD24 TD SCH (08:47)
[2021-03-02] MEDS: THIAMINE HCL 100 MG TABLET PO SCH (08:47)
[2021-03-02] MEDS: MEMANTINE HCL 5 MG TABLET PO SCH ×2 (08:48→17:01)
[2021-03-02] MEDS: APIXABAN 5 MG TABLET PO SCH ×2 (08:49→17:04)
[2021-03-02] MEDS: METOPROLOL TARTRATE 50 MG TABLET PO SCH (08:51)
[2021-03-02 08:54] LABS: CALCIUM, SERUM 9.5 mg/dL (8.5-10.1); CREATININE 0.9 mg/dL (0.6-1.3); POTASSIUM 4.7 mmol/L (3.5-5.1)
[2021-03-02 12:10] VITALS: BP 96/65
[2021-03-02] MEDS: INSULIN REGULAR, HUMAN 100 UNIT/ML 3 ML VIAL SQ PRN (12:20)
[2021-03-02] MEDS: CEFTRIAXONE 2 G in IV D5W 100 ML IV SCH (12:23)
[2021-03-02] MEDS ORDERED: NICO-676 TD (14:55)
[2021-03-02] MEDS ORDERED: Thiamine HCL PO (14:55)
[2021-03-02] MEDS ORDERED: CEFT1FRO2 IV (14:55)
[2021-03-02] MEDS ORDERED: DIGO125T PO (14:55)
[2021-03-02] MEDS ORDERED: APIX5TAB PO (14:55)
[2021-03-02 16:41] VITALS: BP 130/78
[2021-03-02 17:01] VITALS: BP 130/78
[2021-03-02] MEDS: risperiDONE 1 MG TABLET PO SCH (17:01)
[2021-03-02 17:50] LABS: BAND % (MANUAL) 7 % (0.0-5.0); EOSINOPHILS % (MANUAL) 2 % (0-4); LYMPHOCYTES % (MANUAL) 23 % (16-48); NEUTROPHILS % (MANUAL) 68 (42-76)
--- NOTE | 2021-03-02 19:44 | NUR ---
DISCHARGE NOTE PATIENT DISCHARGED IN STABLE CONDITIONS. A/O X3. V/S TAKEN, STABLE AND RECORDED. NO IV ACCESS. SKIN ASSESSMENT DONE. NAME ARM BAND REMOVED. ALL BELONGINGS CHECKED AND SIGNED. HEALTH TEACHING AND DISCHARGE INSTRUCTIONS GIVEN TO PATIENT AND VERBALIZED UNDERSTANDING. TRIED TO GIVE REPORT TWICE BUT FACILITY SAID TO CALL BACK. PATIENT LEFT UNIT VIA GURNEY WITH NO SIGNS OF REPORT, ACCOMPANIED BY PARAMEDICS. CHARGE NURSE AWARE OF DISCHARGE.
== END 2021-03-02 19:08 | DRG 308 ==
LOC: ER 06:22 → ICU 12:37 → TELE 02-15 19:14 → ICU 02-23 07:59 → TELE-TD 02-23 18:46 → ICU 02-24 15:11 → MED 02-27 18:41 → TELE 02-27 18:55
PROVIDERS: ADMIT Nurse Practitioner Acute Care; ATTEND Nurse Practitioner Acute Care
PROC: 5A2204Z Restoration of Cardiac Rhythm, Single (ICD-10-PCS; principal; 2021-02-23)
PROC: B246ZZ4 Ultrasonography of Right and Left Heart, Transesophageal (ICD-10-PCS; 2021-02-23)
PROC: 02HV33Z Insertion of Infusion Device into Superior Vena Cava, Percutaneous Approach (ICD-10-PCS; 2021-02-24)
PROC: B548ZZA Ultrasonography of Superior Vena Cava, Guidance (ICD-10-PCS; 2021-02-24)
DX: I48.0 Paroxysmal atrial fibrillation (principal); J69.0 Pneumonitis due to inhalation of food and vomit; J96.01 Acute respiratory failure with hypoxia; G92.8 Other toxic encephalopathy; I50.33 Acute on chronic diastolic (congestive) heart failure; R65.21 Severe sepsis with septic shock; A41.50 Gram-negative sepsis, unspecified; N17.0 Acute kidney failure with tubular necrosis; E44.0 Moderate protein-calorie malnutrition; J44.1 Chronic obstructive pulmonary disease with (acute) exacerbation; Z79.84 Long term (current) use of oral hypoglycemic drugs; Z79.82 Long term (current) use of aspirin; Z79.899 Other long term (current) drug therapy; E11.22 Type 2 diabetes mellitus with diabetic chronic kidney disease; E78.5 Hyperlipidemia, unspecified; F17.210 Nicotine dependence, cigarettes, uncomplicated; F10.229 Alcohol dependence with intoxication, unspecified; Y90.8 Blood alcohol level of 240 mg/100 ml or more; F03.90 Unspecified dementia, unspecified severity, without behavioral disturbance, psychotic disturbance, mood disturbance, and anxiety; E87.6 Hypokalemia; E83.39 Other disorders of phosphorus metabolism; E83.42 Hypomagnesemia; E66.9 Obesity, unspecified; Z68.33 Body mass index [BMI] 33.0-33.9, adult; J20.9 Acute bronchitis, unspecified; N18.9 Chronic kidney disease, unspecified; I12.9 Hypertensive chronic kidney disease with stage 1 through stage 4 chronic kidney disease, or unspecified chronic kidney disease; Z79.51 Long term (current) use of inhaled steroids; Z86.73 Personal history of transient ischemic attack (TIA), and cerebral infarction without residual deficits; J32.4 Chronic pansinusitis; J34.2 Deviated nasal septum; H05.20 Unspecified exophthalmos; M19.90 Unspecified osteoarthritis, unspecified site; M77.9 Enthesopathy, unspecified
CPT/HCPCS: 36410; 36415; 36569; 36600; 70450-TC; 70486-TC; 71045-TC; 72125-TC; 80048-TC; 80053-TC; 80076-TC; 80202-TC; 81001; 82550-TC; 82553; 82803-TC; 82962-TC; 83690-TC; 83735-TC; 83880; 84100-TC; 84484-TC; 85025-TC; 85730-TC; 87040-TC; 87081-TC; 87086-TC; 87186-TC; 93307-TC; 93312-TC; 94799-TC; 97112-TC; 97116-TC; 97530-TC; A4216; A6253; A6403; A9563; C9803; G0378; G0480; J0282; J0696; J1100; J1160; J1815; J1940; J1956; J2060; J2185; J2370; J2405; J2704; J2930; J3370; J3411; J3475; J3480; J3490; J7030; J7040; J7050; J7060; J7512